=== PATIENT | female | born 1935 | race Caucasian/White ===

== ENCOUNTER 2016-07-04 20:35 | Inpatient (IN) ==
[2016-07-04] MEDS: HYDROmorphone 2 MG/ML SYRINGE IV PRN ×2 (21:20→23:07)
[2016-07-04] MEDS ORDERED: PHYTONADIONE 5 MG TABLET PO ONE (21:49)
[2016-07-04 22:51] LABS: Basophils # (Auto) 0 K/mcL (0.0-0.3); Basophils % (Auto) 0.1 % (0.0-2.0); Eosinophils # (Auto) 0.3 K/mcL (0.0-0.7); Eosinophils % (Auto) 2.1 % (0.0-7.0); Granulocytes % (Auto) 86.9 % (38.0-78.0); Lymphocytes # (Auto) 0.7 K/mcL (1.5-4.8); Lymphocytes % (Auto) 4.8 % (15.5-49.0); Mean Cell Volume 89.6 fL (80.0-100.0); Mean Corpuscular Hemoglobin 28.7 pg (26.0-34.0); Monocytes # (Auto) 0.9 K/mcL (0.1-0.9); Monocytes % (Auto) 6.1 % (1.0-12.0); Platelet Count 161 K/mcL (140-440); RBC 3.29 M/mcL (4.00-5.20); Red Cell Distribution Width 19.3 % (11.5-14.5)
--- NOTE | 2016-07-04 23:13 | Emergency Department Note ---
Fall HPI - General Chief Complaint: Fall Stated Complaint: Fall/left hip pain Time Seen by Provider: 07/04/16 20:39 Source: patient Mode of arrival: wheelchair Limitations: no limitations - History of Present Illness HPI Narrative: 81-year-old female fell from standing today when she lost her balance turning away from the computer. She had her head on a metal chair while on the way down causing a laceration above her left ear. No loss of consciousness. She is on Coumadin. Additionally she landed on her left hip which is very painful now. He is not wanting to move it at all. Denies nausea vomiting diarrhea. She is supposed to get dialysis tomorrow with Dr. Duke - Related Data Home Medications Medication Instructions Recorded Confirmed ascorbic acid (vitamin C) ER 500 500 mg PO QDAY tab 09/26/14 06/11/16 mg tablet,extended release cetirizine 10 mg capsule 10 mg PO ONCE PRN cap 09/26/14 06/11/16 fluticasone 50 mcg/actuation nasal 1 spray INTRANASAL QDP PRN g 09/26/14 spray,suspension vitamin-iron fumarate 28 1 tab PO QDAY tab 09/26/14 06/11/16 mg-folic acid 800 mcg tablet aspirin 81 mg tablet,delayed 81 mg PO QDAY 11/19/15 06/11/16 release cyanocobalamin (vit B-12) 1,000 1,000 mcg PO QDAY 11/19/15 06/11/16 mcg tablet omega-3 fatty acids 1,000 mg 2,000 mg PO QDAY 11/19/15 06/11/16 capsule Ferrous Sulfate 325 mg PO QDAY 03/16/16 06/11/16 calcium acetate 667 mg capsule 667 mg PO TID 03/16/16 06/11/16 sevelamer carbonate 800 mg tablet 800 mg PO TID 03/16/16 06/11/16 Lancets [Incontrol Ultra Thin See Protocol .ROUTE .MEDSUPPLY 06/11/16 06/11/16 Lancets] Previous Rx's Medication Instructions Recorded prednisone 20 mg tablet 20 mg PO BID PRN 90 Days 10/22/14 acetaminophen 325 mg tablet 650 mg PO BID PRN #1 tab 06/24/15 Voltaren 1 % topical gel 2 g TOPICAL QDAY #200 g NS 07/07/15 levothyroxine 88 mcg tablet 88 mcg PO QDAY 90 Days 07/07/15 atorvastatin 40 mg tablet 40 mg PO QDAY 90 Days 08/05/15 alcohol swabs See Dose Instructions .ROUTE 09/16/15 .MEDSUPPLY #200 pad febuxostat 80 mg tablet 80 mg PO QDAY #90 tab 05/26/16 hydrocodone 5 mg-acetaminophen 325 1 tab PO Q6H PRN 30 Days 05/26/16 mg tablet ipratropium bromide 0.03 % nasal 2 spray INTRANASAL BID-TID PRN #30 05/26/16 spray ml blood-glucose meter kit See Dose Instructions .ROUTE 06/03/16 .MEDSUPPLY #1 each traMADol [Ultram] 50 mg PO Q6HP PRN #20 tablet 06/11/16 warfarin 2 mg tablet 2 mg PO .COMPLEX #60 tab 06/29/16 warfarin 3 mg tablet 3 mg PO .COMPLEX #60 tab 06/29/16 Allergies Allergy/AdvReac Type Severity Reaction Status Date / Time pregabalin [From Lyrica] Allergy Severe crazy Verified 05/26/16 08:44 allopurinol Allergy Mild Unknown Verified 05/26/16 08:44 diltiazem AdvReac Intermediate Hypertensio Verified 05/26/16 08:44 n muscle relaxers Allergy Severe crazy Uncoded 05/26/16 08:44 Review of Systems All systems ED: reviewed and negative except as stated. Fall PMH - Past Medical History Attestation: Yes: The following information was validated with the patient. Medical history: Reports: atrial fibrillation, CHF, diabetes, GERD, hyperlipidemia, hypertension, osteoporosis, peripheral artery disease, renal disease, thyroid disease, valvular heart disease, other Surgical history ED: Reports: appendectomy, cataract, other (fistula) - Social History smoking status: Former smoker Physical Exam No acute distress. Normocephalic. 2 cm scalp laceration above the left ear superficial with reasonable approximation-bleeding is minimal at this time. Conjunctiva clear sclerae anicteric. No nasal discharge or congestion. Oropharynx is pink and moist. Neck is supple without lymphadenopathy or thyromegaly. Heart is regular rate and rhythm. Lungs are clear to auscultation bilaterally without wheezes rales rhonchi or respiratory distress. Abdomen soft nontender nondistended. Left leg tender around the greater trochanter. Any movement of that left hip joint exacerbates that tenderness immensely. Chronic bilateral pedal edema +1-2. Alert and oriented able to answer questions properly. - General Limitations: no limitations Course Vital Signs Temperature 97.0 F L 07/04/16 20:36 Pulse Rate 77 07/04/16 20:36 Respiratory Rate 20 07/04/16 20:36 Blood Pressure 111/38 07/04/16 20:36 Temperature 97.0 F L 07/04/16 20:36 Pulse Rate 89 07/04/16 23:41 Respiratory Rate 20 07/04/16 23:41 Blood Pressure 111/29 07/04/16 23:41 Pulse Oximetry (%) 96 07/04/16 23:41 Fall - Lab Data Lab results reviewed: Yes I reviewed the patient's lab results. Result diagrams: 07/04/16 21:48 07/04/16 21:47 Lab Results 07/04/16 07/04/16 07/04/16 Range/Units 21:47 21:48 22:01 WBC 14.4 H (4.5-11.0) K/mcL RBC 3.29 L (4.00-5.20) M/mcL Hgb 9.4 L (12.0-15.0) g/dL Hct 29.5 L (36.0-48.0) % MCV 89.6 (80.0-100.0) fL MCH 28.7 (26.0-34.0) pg MCHC 32.0 (31.0-36.0) g/dL RDW 19.3 H (11.5-14.5) % Plt Count 161 (140-440) K/mcL MPV 9.2 (7.4-10.4) fL Gran % 86.9 H (38.0-78.0) % Lymph % (Auto) 4.8 L (15.5-49.0) % [place] % (Auto) 6.1 (1.0-12.0) % Eos % (Auto) 2.1 (0.0-7.0) % Baso % (Auto) 0.1 (0.0-2.0) % Gran # 12.5 H (1.8-8.0) K/mcL Lymph # 0.7 L (1.5-4.8) K/mcL [place] # 0.9 (0.1-0.9) K/mcL Eos # 0.3 (0.0-0.7) K/mcL Baso # 0 (0.0-0.3) K/mcL Differential Comment (()) POC PT 50.0 H (11.9-14.5) sec POC INR 4.5 H (0.9-1.2) Sodium Not Reportable Potassium Not Reportable Chloride Not Reportable Carbon Dioxide Not Reportable Anion Gap Not Reportable BUN Not Reportable Creatinine Not Reportable GFR Calculation Not Reportable Glucose TNP Calcium Not Reportable Total Bilirubin Not Reportable AST Not Reportable ALT Not Reportable Alkaline Phosphatase Not Reportable Total Protein Not Reportable Albumin Not Reportable Globulin Not Reportable Albumin/Globulin Ratio Not Reportable - Radiology Data Radiology results reviewed: Yes I reviewed the patient's radiology results. X-ray left hip shows a left femoral neck fracture. Impacted CT scan of the head shows a left scalp hematoma/contusion and left sphenoid sinusitis. No acute intracranial issue Disposition Clinical Impression: Chronic kidney disease, stage V, Supratherapeutic INR Closed left hip fracture Qualifiers: Encounter type: initial encounter Qualified Code(s): S72.002A - Fracture of unspecified part of neck of left femur, initial encounter for closed fracture Scalp laceration Qualifiers: Encounter type: initial encounter Qualified Code(s): S01.01XA - Laceration without foreign body of scalp, initial encounter Summary: After cleaning , Scalp laceration was repaired with Dermabond Discussed left hip fracture with Dr. Mcdonald, her orthopedist. He recommended that she be admitted to hospitalist secondary to medical issues and that he would fix her hip when she was medically stable. She is due for dialysis tomorrow with Dr. Duke. Her INR was 4.5. Dr. Mcdonald requested a reverse anticoagulation in preparation for surgery and to that and I gave her 5 mg of vitamin K orally. I discussed the patient with Dr. Lin the hospitalist; he will admit the patient and take over reversal and medical management. Dr. Mcdonald and Srikanth will be consult her diastolic blood pressure was somewhat low as well and so she was given fluid bolus for this Disposition: Xfer As Inpt ([facility]) Condition: Fair Referrals: Manuela,Peyton S., DO [Primary Care Provider] - Jourdan Marie MD [Physician] - Emerald Duke MD [Physician] - Isaías Mcdonald MD [Physician] -
[2016-07-04] MEDS ORDERED: 0.9 % SODIUM CHLORIDE 500 ML IV ONE (23:48)
[2016-07-05] MEDS ORDERED: ONDANSETRON 4 MG/2 ML VIAL IV PRN (00:20)
[2016-07-05] MEDS ORDERED: NOREPINEPHRINE BITARTRATE 16 MG in 0.9 % SODIUM CHLORIDE 234 ML IV SCH ×2 (00:20→13:00)
[2016-07-05] MEDS ORDERED: ACETAMINOPHEN 325 MG TABLET PO PRN (00:20)
[2016-07-05] MEDS ORDERED: PIPERACILLIN SODIUM/TAZOBACTAM 3.375 GM in DEXTROSE 5% IN WATER 50 ML IV SCH (00:20)
[2016-07-05] MEDS ORDERED: VANCOMYCIN PER PHARMACY IV ONE (00:20)
[2016-07-05] MEDS ORDERED: ACETAMINOPHEN 1,000 MG/100 ML BOTTLE IV PRN (00:20)
[2016-07-05] MEDS ORDERED: LEVOFLOXACIN 750 MG/150 ML BAG IV SCH (00:20)
[2016-07-05] MEDS: HYDROmorphone 2 MG/ML SYRINGE IV PRN ×3 (00:44→08:20)
--- NOTE | 2016-07-05 01:10 | History and Physical Report ---
DATE OF ADMISSION: 07/05/2016 DATE OF ADMISSION: 07/04/2016 REASON FOR ADMISSION: Fall with left hip pain. HISTORY OF CHIEF COMPLAINT: Julianna is an 81-year-old with known history of ESRD on hemodialysis, managed by Dr. Duke, along with a history of atrial fibrillation on chronic anticoagulation. She fell today, landing on her left hip, sustaining significant injury along with laceration to the head. Initial workup in the ER was significant for left hip fracture. The patient denies chest palpitation, lightheadedness, but does endorse to significant weakness evolving over the last few days. The patient recently was admitted at [facility], has been ever since recovering, but never fully regained her strength. She also denies fever, headache, photophobia, chest pain or shortness of breath. She endorses generalized swelling. She is on 3 times a week hemodialysis. Denies diarrhea, dysuria, abdominal pain, weight changes. REVIEW OF SYSTEMS: Ten-point review of system was performed and negative except the ones discussed above. PAST MEDICAL HISTORY: 1. ESRD on hemodialysis, managed by nephrology. 2. Hypothyroidism. 3. Chronic anemia. 4. Atrial fibrillation, on Coumadin for CVA prophylaxis. 5. Recurrent pneumonia. 6. Diabetes mellitus type 2. 7. Gout. 8. Bilateral lower extremity lymphedema. 9. Hypertension. 10. Hyperlipidemia. 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 12. Aortic stenosis, status post aortic valve replacement recently at [facility]. 13. Chronic pleural effusion. CURRENT MEDICATIONS: 1. Fluticasone intranasally. 2. Cetirizine 10. 3. Ascorbic acid as needed. 4. Aspirin 81. 5. Ferrous sulfate 325. 6. Sevelamer 800 t.i.d. 7. Calcium acetate 667 t.i.d. 8. Prednisone 20. 9. Levothyroxine 88. 10. Atorvastatin 40. 11. Febuxostat 80. 12. Hydrocodone/acetaminophen 1 tab q.6. 13. Tramadol 50. 14. Warfarin 2 alternating with 3 mg. ALLERGIES KNOWN TO: 1. ALLOPURINOL. 2. DILTIAZEM. 3. PREGABALIN. 4. MUSCLE RELAXERS. SOCIAL HISTORY: The patient lives in [place] along with her daughter, who is accompanying her. She is remote past smoker but quit, 62. She is . Her POA is Shawn, daughter. FAMILY HISTORY: Non-relevant, being advanced age and ESRD and presenting symptoms. PHYSICAL EXAMINATION: GENERAL: The patient is moderately distressed, lethargic, fatigued, but responding to verbal commands. BMI 28.7. Height 5 feet 3 inches. VITAL SIGNS: Blood pressure 111/30, respiratory rate 20, temperature 97, pulse 77 and sats at 98 percent on room air. HEENT: Pupils symmetric. Oral cavity is dry. No ear or nose discharge. Head is normocephalic and atraumatic. NECK: No lymphadenopathy. CHEST: S1, S2, irregular rhythm. ESM grade 1. Diminished breath sounds at bases. ABDOMEN: Soft and nontender. UPPER EXTREMITIES: Left upper extremity fistula along with significant laceration. LOWER EXTREMITIES: Left lower extremity externally rotated and shortened as compared to right lower extremity along with bilateral lymphedema. SKIN: Multiple bruises, ecchymosis generalized, and also laceration left temporal area and left upper extremity. PSYCHIATRIC: Fatigued, lethargic, but cooperative. No agitation, anxiety. NEURO: Moving all 4 extremities. Normal higher function on limited neuro exam. LABS AND IMAGING: White count 14.4, hemoglobin 9.4, platelets 161, bands over 10 percent. INR 4.5. BMP pending. ASSESSMENT AND PLAN: An 81-year-old admitted with sepsis, left hip fracture. 1. Sepsis of unclear etiology. Ramirez cultures, broad antibiotic coverage, start vasopressors if MAP less than 60. The patient is a high risk based on [place] score of immunocompromised state, end-stage renal disease on dialysis. 2. Continue aggressive source evaluation including chest x-ray, ramirez cultures. 3. Left hip fracture. Orthopedics consulted. Continue pain management until surgery. 4. Supratherapeutic INR. Start vitamin K 5 mg and use FFP to keep INR less than 1.5 prior to surgery. 5. Preoperative risk evaluation based on RCRI [place] Heart Association risk stratification, the patient would fall under very high risk category for intraoperative and immediate postoperative period acute coronary event/cerebrovascular accident. Most of the risks are not modifiable and patient and family understand the high risk nature in light of hemodialysis for end-stage renal disease. 6. History of atrial fibrillation. 7. Hypothyroidism. Continue thyroxine. 8. Degenerative joint disease. Continue pain medication. 9. Hyperlipidemia. Continue statin. 10. History of gout. Continue febuxostat. 11. Recent aortic valve replacement, currently stable. PLAN FOR TODAY: 1. Admit as inpatient. 2. Nephrology and orthopedic consultation. 3. Reverse anticoagulation with vitamin K and FFP. 4. The patient remains high risk operative candidate. Surgery and anesthesia specific risks will be addressed by individual care providers. 5. Antibiotic coverage. 6. Continue sepsis source evaluation. 7. Preexisting medical condition management as above. Overall, a very high-complexity admit, will be admitted in ICU and close monitoring for concern of sepsis. AA:brien Job ID: [id number] Doc ID: [id number] Jourdan Marie MD MTDSteve
[2016-07-05] MEDS ORDERED: LEVOFLOXACIN 750 MG/150 ML BAG IV ONE (01:20)
[2016-07-05] MEDS ORDERED: VANCOMYCIN 1,500 MG in 0.9 % SODIUM CHLORIDE 500 ML IV ONE (01:33)
[2016-07-05] MEDS ORDERED: VANCOMYCIN 500 MG VIAL ONE (01:45)
[2016-07-05] MEDS ORDERED: VANCOMYCIN 1 GM VIAL ONE (01:46)
[2016-07-05] MEDS ORDERED: PIPERACILLIN SODIUM/TAZOBACTAM 3.375 GM VIAL IV ONE (03:47)
[2016-07-05] MEDS ORDERED: HYDROmorphone 2 MG/ML SYRINGE ONE (04:37)
[2016-07-05] MEDS ORDERED: 0.9 % SODIUM CHLORIDE 10 ML SYRINGE IV SCH (06:00)
--- NOTE | 2016-07-05 07:40 | XRay Report ---
CLINICAL INFORMATION: Trauma COMPARISON: None. FINDINGS: There is an acute, mildly impacted subcapital fracture of the left hip. Minimal displacement noted. Mild degenerative change seen in both hips and SI joints. Soft tissues are normal. IMPRESSION: Minimally impacted displaced acute subcapital fracture - left hip Interpreted and Authenticated by: Isaías Baker 07/05/16
--- NOTE | 2016-07-05 07:50 | Cat Scan Report ---
CLINICAL INFORMATION: Trauma now with confusion COMPARISON: None. TECHNIQUE: 2.5 mm helical slices were obtained in the skull base to vertex. Following reconstruction, axial reformatted images were reviewed at bone and parenchymal windows. FINDINGS: The ventricles, sulci, fissures, and cisterns are symmetrically enlarged compatible with mild age-related atrophy - no extra-axial fluid collection or mass appreciated. Patchy chronic ischemic changes seen in the deep cerebral white matter. There is a linear 20 x 5 mm remote lacunar infarct in the left external capsule and a 15 x 5 mm remote lacunar infarct in the right external capsule. There are scattered remote lacunar infarcts in the deep cerebral white matter. There are also scattered remote lacunar infarcts in the basal ganglia. There is no acute intracerebral hemorrhage, mass effect or edema. There is subtotal opacification of the left sphenoid and right posterior ethmoid air cell compatible sinusitis. IMPRESSION: Mild atrophy and chronic ischemic changes in the cerebral white matter and remote lacunar infarcts in the basal ganglia and deep cerebral white matter. There is no intracerebral hemorrhage or other acute posttraumatic change. Severe left sphenoid and posterior right ethmoid sinusitis Interpreted and Authenticated by: Isaías Baker 07/05/16
--- NOTE | 2016-07-05 07:59 | XRay Report ---
CLINICAL INFORMATION: Shortness of breath COMPARISON: 06/14/2016. FINDINGS: The heart has increased in size - now markedly enlarged. Mediastinum is unremarkable. The pulmonary vessels are now moderately distended and there is mild interstitial edema throughout both lungs. Small right pleural effusion is appreciated. There is minor bibasilar atelectasis. IMPRESSION: Moderate acute CHF with small right pleural effusion Interpreted and Authenticated by: Isaías Baker 07/05/16
[2016-07-05] MEDS ORDERED: NOREPINEPHRINE BITARTRATE 16 MG in 0.9 % SODIUM CHLORIDE 234 ML IV PRN (08:36)
[2016-07-05 08:48] LABS: Mean Cell Volume 90.9 fL (80.0-100.0); Mean Corpuscular HGB Conc 32.4 g/dL (31.0-36.0); Mean Corpuscular Hemoglobin 29.5 pg (26.0-34.0); Platelet Count 156 K/mcL (140-440); RBC 2.84 M/mcL (4.00-5.20); Red Cell Distribution Width 19.8 % (11.5-14.5)
[2016-07-05] MEDS ORDERED: DOCUSATE SODIUM 100 MG CAPSULE PO SCH (09:00)
[2016-07-05 09:20] LABS: ALT/SGPT 22 U/l (0-40); Albumin 2.9 gm/dL (3.2-5.2); Alkaline Phosphatase 93 U/L (39-117); Bilirubin,Direct < 0.2 mg/dL (0.0-0.3); Blood Urea Nitrogen 46 mg/dl (8-23); Gamma Glutamyl Transpeptidase 31 U/L (5-36); Magnesium 2.3 mg/dL (1.6-2.5); Phosphorous 4.3 mg/dL (2.7-4.5); Uric Acid 2.5 mg/dL (2.5-8.0)
[2016-07-05] MEDS ORDERED: 0.9 % SODIUM CHLORIDE 10 ML SYRINGE IV PRN (09:33)
[2016-07-05] MEDS ORDERED: VANCOMYCIN PER PHARMACY IV SCH (10:15)
[2016-07-05 10:47] LABS: Anisocytosis 1+ (NONE SEEN); Eosinophils % (Manual) 1 % (0-7); Lymphocytes % 2 % (15-49); Monocytes % (Manual) 1 % (1-9); Platelet Estimate NORMAL (NORMAL); RBC Morphology ABNORM (NORMAL); Segmented Neutrophils % 96 % (38-78)
[2016-07-05] MEDS ORDERED: PHYTONADIONE 10 MG/ML AMPUL SQ ONE (11:01)
--- NOTE | 2016-07-05 11:10 | Internal Med Progress Note ---
Medical - PN: Subj Patient information: Note initiated : 07/05/16 at 11:01 am Service Date, if different from initiated Date: [] Patient: Julianna Cameron 81 y/o F admitted on 07/05/16 for Fall/left hip pain. Chief Complaint: [] Interval history: 07[id number]-old female with ESRD admitted with sepsis/fall/left hip fracture. ESRD on hemodialysis. Left-sided head laceration status post Dermabond application ER. nephrology consulted. Staff unable to obtain adequate blood for lab analysis. Admitted as inpatient. Nephrology and orthopedics on board. Status post 5 mg vitamin K at ER. white count 14.6 with bandemia. x-ray chest moderate CHF 07/05- INR at 5. Additional 5 mg vitamin K subcutaneous today. Surgery on hold. On antibiotic coverage. Nephrology on board for hemodialysis. Adequate pain relief. Patient comfortable. Family at bedside. No overnight fever chills nausea vomiting. Order in light of inadequate IV access. Narcotics And/Or Vice Detective recommended against accessing dialysis fistula for blood draws. Continue broad antibiotic coverage in light of leukocytosis/bandemia and unknown source for sepsis. - Constitutional Vitals: Vital Signs Temp Pulse Resp BP Pulse Ox 99.1 F 100 H 18 109/51 96 07/05/16 08:00 07/05/16 04:20 07/05/16 08:00 07/05/16 08:00 07/05/16 08:00 Period Temp Pulse Resp BP Sys/Worrell Pulse Ox Last 24 Hr 97.5 F-99.1 F 95-100 14-18 90-109/38-54 93-96 Intake and Output 07/04/16 07/05/16 07/05/16 21:59 05:59 13:59 Intake Total 650 / 650 Balance 650 / 650 Weight 165 lb Intake & Output: Intake & Output 07/04/16 07/05/16 07/05/16 21:59 05:59 13:59 Intake Total 650 / 650 Balance 650 / 650 Weight 165 lb Intake: IV 650 / 650 Vancomycin 1,500 mg In 500 / 500 Sodium Chloride 0.9% 500 ml @ 333.3 mls/hr IV ONCE ONE Rx#:[id number] General appearance: moderate distress (ip fracture pain) Exam: mild anxiety minimally labored breathing nondistended abdomen bilateral lymphedema left arm fistula Left lateral forehead- Dermabond over laceration Medical - PN: Obj Da - Labs CBC & Chem 7: 07/05/16 07:20 07/05/16 07:20 Labs: Abnormal Lab Results 07/05/16 07/05/16 07/05/16 07:20 07:20 07:20 WBC 11.6 H RBC 2.84 L Hgb 8.4 L Hct 25.8 L RDW 19.8 H Seg Neutrophils % 96 H Lymphocytes % 2 L RBC Morphology Abnorm A Anisocytosis 1+ A PT 48.3 H INR 5.0 H Chloride 95 L Anion Gap 17.0 H BUN 46 H Creatinine 6.5 H* Glucose 133 H Calcium 7.4 L Lactate Dehydrogenase 370 H Total Protein 5.8 L Albumin 2.9 L Meds: Medications Acetaminophen (Tylenol) 650 mg PO Q4-6HP PRN PRN Reason: PAIN/FEVER > 101 Docusate Sodium (Colace) 100 mg PO BID [facility] Last Admin: 07/05/16 08:21 Dose: Not Given Heparin Sodium (Porcine) (Heparin Flush) 2 ml IV Q12 [facility] Hydromorphone HCl (Dilaudid) 0 mg IV Q4HP PRN PRN Reason: Pain Last Admin: 07/05/16 08:20 Dose: 0.5 mg Acetaminophen (Ofirmev) 1,000 mg in 100 mls @ 200 mls/hr IV Q6HP PRN PRN Reason: PAIN/FEVER > 101 Norepinephrine Bitartrate 16 (mg/ Sodium Chloride) 250 mls @ 9.37 mls/hr IV Q24HP PRN; Protocol; 10 MCG/MIN PRN Reason: Hypotension Piperacillin Sod/Tazobactam (Sod 2.25 gm/ Dextrose) 50 mls @ 100 mls/hr IV Q12H FANNY Levofloxacin (Levaquin) 500 mg in 100 mls @ 100 mls/hr IV Q48H FANNY Ondansetron HCl (Zofran) 4 mg IV Q4-6HP PRN PRN Reason: Nausea And Vomiting Senna/Docusate Sodium (Senna Plus Tablet) 1 tab PO HS FANNY Sodium Chloride (Saline Flush) 10 ml IV Q8 [facility] Last Admin: 07/05/16 05:23 Dose: Not Given Sodium Chloride (Saline Flush) 10 ml IV UD PRN PRN Reason: FLUSH Vancomycin HCl (Vancomycin Per Pharmacy) 1 order IV UD [facility] Medical - PN: A/P - Time Spent With Patient Total time spent is greater than 50% in coordination of care (as documented) at patient's floor/unit and/or counseling patient: 25 - 35 minutes (1) Sepsis Status: Acute Assessment and plan: * Left hip fracture-managed by orthopedics. surgery on hold in light of supratherapeutic INR ISSUES MANAGED BY HOSPITALIST SERVICE * Preoperative risk evaluation-based on RCRI [place] Heart Association risk stratification patient would fall under very high risk category for immediate Intra-Op/postop sabrina acute coronary event/CVA. Family understands he risks including and agrees to proceed with surgery. surgery and anesthesia specific risks will be addressed by individual care providers * SSepsis-Unclear source. On antibiotic coverage. Await cultures * Pain management on as needed opioids * Supratherapeutic INR-Status post 5 mg vitamin K. Repeat INR 5. Additional 5 mg vitamin K today. use FFP preop * pleural effusion/volume overload/CHF-secondary to ESRD. * ESRD on HD-managed by nephrology * Atrial fibrillation-rate controlled * glaucoma on latanoprost * Hypothyroidism on thyroxine * Reactive airway disease on ipratropium * Hyperlipidemia statin * DVT prophylaxis-we'll resume Coumadin post surgery plan * Additional 5 mg vitamin K.repeat INR evening. Use FFP preop to target INR 1.5 * PICC line placement * empiric antibiotic coverage * hemodialysis per nephrology * Pain management * pre-existing medical condition management as above Current Visit: Yes Medical - PN: Qual - Stroke Symptom Onset Unknown: No - VTE Deep Vein Thrombosis/Pulmonary Embolism Present on Admission: No
[2016-07-05] MEDS ORDERED: HYDROmorphone 2 MG/ML SYRINGE IV PRN (11:26)
[2016-07-05] MEDS ORDERED: PIPERACILLIN SODIUM/TAZOBACTAM 2.25 GM in DEXTROSE 5% IN WATER 50 ML IV SCH (13:00)
--- NOTE | 2016-07-05 13:17 | XRay Report ---
CLINICAL INFORMATION: PICC PLACEMENT COMPARISON: 07/04/2016. FINDINGS: Right-sided PICC line tip overlies the tricuspid valve plane. The heart is moderately enlarged, but unchanged. Mediastinum is unremarkable. Pulmonary vessels remain mildly distended and there is mild residual edema throughout both lungs with small right pleural effusion. IMPRESSION: PICC line tip overlies the tricuspid valve plane. Nurses were instructed to withdraw the line 5 cm Mild/moderate CHF - slightly improved Interpreted and Authenticated by: Isaías Baker 07/05/16
[2016-07-05] MEDS ORDERED: 0.9 % SODIUM CHLORIDE 250 ML IV ONE (13:22)
--- NOTE | 2016-07-05 14:21 | Transfer Summary ---
Transfer Discharge Sum: Prov Patient information: Note initiated : 07/05/16 at 2:15 pm Service Date, if different from initiated Date: [] Patient: Julianna Cameron 81 y/o F admitted on 07/05/16 for Fall/left hip pain. Chief Complaint: [] Date of admission: 07/05/16 00:10 Discharge Date: 07/05/16 Primary care physician: [f_Reg Prim Care Provider] Receiving physician/facility: Addie Peguero [facility] watchstander Transfer Discharge Sum: Diag - Discharge Diagnosis (1) Sepsis Status: Acute Transfer Discharge Sum: Med - Medications Active and Home Medications: Home Medications ascorbic acid (vitamin C) ER 500 mg tablet,extended release 500 mg PO QDAY tab 09/26/14 [History Confirmed 07/05/16] cetirizine 10 mg capsule 10 mg PO ONCE PRN cap 09/26/14 [History Confirmed ] fluticasone 50 mcg/actuation nasal spray,suspension 1 spray INTRANASAL QDP PRN g 09/26/14 [History Confirmed 07/05/16] vitamin-iron fumarate 28 mg-folic acid 800 mcg tablet 1 tab PO QDAY tab 09/26/14 [History Confirmed 07/05/16] prednisone 20 mg tablet 20 mg PO BID PRN 90 Days 10/22/14 [Rx Confirmed 07/05/16 ] acetaminophen 325 mg tablet 650 mg PO BID PRN #1 tab 06/24/15 [Rx Confirmed ] Voltaren 1 % topical gel 2 g TOPICAL QDAY #200 g NS 07/07/15 [Rx Confirmed 06/11] levothyroxine 88 mcg tablet 88 mcg PO QDAY 90 Days 07/07/15 [Rx Confirmed ] atorvastatin 40 mg tablet 40 mg PO QDAY 90 Days 08/05/15 [Rx Confirmed 07/05/16] alcohol swabs See Dose Instructions .ROUTE .MEDSUPPLY #200 pad 09/16/15 [Rx Confirmed 05/26/16] aspirin 81 mg tablet,delayed release 81 mg PO QDAY 11/19/15 [History Confirmed 07/05/16] cyanocobalamin (vit B-12) 1,000 mcg tablet 1,000 mcg PO QDAY 11/19/15 [History Confirmed 07/05/16] omega-3 fatty acids 1,000 mg capsule 2,000 mg PO QDAY 11/19/15 [History Confirmed 07/05/16] Ferrous Sulfate 325 mg PO QDAY 03/16/16 [History Confirmed 07/05/16] calcium acetate 667 mg capsule 667 mg PO TID 03/16/16 [History Confirmed ] sevelamer carbonate 800 mg tablet 800 mg PO TID 03/16/16 [History Confirmed ] febuxostat 80 mg tablet 80 mg PO QDAY #90 tab 05/26/16 [Rx Confirmed 07/05/16] hydrocodone 5 mg-acetaminophen 325 mg tablet 1 tab PO Q6H PRN 30 Days 05/26/16 [ Rx Confirmed 07/05/16] ipratropium bromide 0.03 % nasal spray 2 spray INTRANASAL BID-TID PRN #30 ml [Rx Confirmed 07/05/16] blood-glucose meter kit See Dose Instructions .ROUTE .MEDSUPPLY #1 each [Rx Confirmed 06/03/16] Lancets [Incontrol Ultra Thin Lancets] See Protocol .ROUTE .MEDSUPPLY 06/11/16 [ History Confirmed 07/05/16] warfarin 2 mg tablet 2 mg PO .COMPLEX #60 tab 06/29/16 [Rx Confirmed 07/05/16] warfarin 3 mg tablet 3 mg PO .COMPLEX #60 tab 06/29/16 [Rx Confirmed 07/05/16] Latanoprost Ophth Drops [Xalatan Ophth Drops] 1 gtt OD HS 07/05/16 [History Confirmed 07/05/16] Midodrine [Midodrine HCl] 2 mg PO 07/05/16 [History] Uloric 80 mg PO DAILY 07/05/16 [History Confirmed 07/05/16] Active Medications Acetaminophen (Tylenol) 650 mg PO Q4-6HP PRN PRN Reason: PAIN/FEVER > 101 Aspirin (Aspirin) 81 mg PO DAILY [facility] Atorvastatin Calcium (Lipitor) 40 mg PO HS FANNY Docusate Sodium (Colace) 100 mg PO BID [facility] Last Admin: 07/05/16 08:21 Dose: Not Given Heparin Sodium (Porcine) (Heparin Flush) 2 ml IV Q12 FANNY Hydromorphone HCl (Dilaudid) 0 mg IV Q2HP PRN PRN Reason: Pain Acetaminophen (Ofirmev) 1,000 mg in 100 mls @ 200 mls/hr IV Q6HP PRN PRN Reason: PAIN/FEVER > 101 Piperacillin Sod/Tazobactam (Sod 2.25 gm/ Dextrose) 50 mls @ 100 mls/hr IV Q12H [facility] Last Admin: 07/05/16 13:42 Dose: 100 mls/hr Levofloxacin (Levaquin) 500 mg in 100 mls @ 100 mls/hr IV Q48H [facility] Norepinephrine Bitartrate 16 (mg/ Sodium Chloride) 250 mls @ 9.37 mls/hr IV Q24H [facility]; 10 MCG/MIN PRN Reason: Protocol Last Titration: 07/05/16 13:49 Dose: 25 mcg/min, 23.43 mls/hr Latanoprost (Xalatan Ophth Drops) 1 gtt OD HS [facility] Levothyroxine Sodium (Synthroid) 88 mcg PO QAMAC [facility] Ondansetron HCl (Zofran) 4 mg IV Q4-6HP PRN PRN Reason: Nausea And Vomiting Febuxostat [Uloric] (80 Mg Tab) 1 dose PO DAILY [facility] Senna/Docusate Sodium (Senna Plus Tablet) 1 tab PO HS [facility] Sodium Chloride (Saline Flush) 10 ml IV Q8 [facility] Last Admin: 07/05/16 05:23 Dose: Not Given Sodium Chloride (Saline Flush) 10 ml IV UD PRN PRN Reason: FLUSH Vancomycin HCl (Vancomycin Per Pharmacy) 1 order IV UD [facility] Transfer Discharge Sum: Hosp Hospital course: TRANSFER DIAGNOSIS * circulatory shock-unclear etiology. Fat emboli versus cardiogenic shock. On vasopressors Levophed at 15. Status post 2 50 cc crystalloid bolus. map around 55. Transferring to [facility] for further management * Left hip fracture- surgery on hold in light of supratherapeutic INR. ransferring to [facility] ISSUES MANAGED BY HOSPITALIST SERVICE * Sepsis-Unclear source. On antibiotic coverage. Await cultures * Fracture Pain management on as needed opioids * Supratherapeutic INR-Status post 5 mg vitamin K. Repeat INR 5. Additional 5 mg vitamin K administered this morning * Pleural effusion/volume overload/CHF-secondary to ESRD. * ESRD- hemodialysis held in light of hypotension * Atrial fibrillation/flutter-rate controlled. * glaucoma on latanoprost * Hypothyroidism on thyroxine * Reactive airway disease on ipratropium * Hyperlipidemia statin * limited code intubation okay. BRIEF HOSPITAL COURSE Ms. Cameron is a 81 year old female history of ESRD on HD admitted with left hip fracture. [id number]-old female with ESRD admitted with sepsis/fall/left hip fracture. ESRD on hemodialysis. Left-sided head laceration status post Dermabond application ER. nephrology consulted. Staff unable to obtain adequate blood for lab analysis. Admitted as inpatient. Nephrology and orthopedics on board. Status post 5 mg vitamin K at ER. white count 14.6 with bandemia. x-ray chest moderate CHF 07/05- INR at 5. Additional 5 mg vitamin K subcutaneous today. Surgery on hold. On antibiotic coverage. Nephrology on board for hemodialysis. Adequate pain relief. Patient comfortable. Family at bedside. No overnight fever chills nausea vomiting. Order in light of inadequate IV access. Dental Laboratory Technician recommended against accessing dialysis fistula for blood draws. Continue broad antibiotic coverage in light of leukocytosis/bandemia and unknown source for sepsis. 07/05-12:20 PM- Patient dropped blood pressures to 70s during dialysis and subsequently dialysis on hold. Patient symptomatic and feeling lightheaded. case discussed with family members. A line placement will be difficult with INR at 5. Initiated Levophed. Underlying CHF will need volume removal however due to low blood pressures at this time HD is on hold. Case discussed with nephrology. Due to complex nature of medical illness and deteriorating status with elevated INR, decompensated heart failure, hypotension requiring pressors, difficulty performing hemodialysis, and underlying left hip fracture requiring operative intervention patient would require transfer to tertiary Center. I discussed this with family And they agree for tertiary Center transfer. patient is a limited code agreeable intubation if required. Transfer coordination initiated with [facility]. await watchstander call back highly appreciate Dr. Addie Peguero's help for accepting transfer and coordinating further care in this highly complex 81-year-old patient. Critical care time spent 75 minutes including discussion with physician and multiple care providers, wishes aggressive management, care coordination, stabilizing patient and time spent on transfer coordination - Time Spent with Patient Total time spent providing and/or coordinating transfer services: Greater than 30 minutes Transfer Discharge Sum: Exam - Constitutional Vitals: Vital Signs Temp Pulse Resp BP BP Pulse Ox 07/05/16 12:00 98.6 F 20 83/44 98 07/05/16 08:00 99.1 F 18 109/51 96 07/05/16 04:20 98.9 F 100 H 14 90/38 94 07/05/16 00:20 97.5 F L 95 H 14 100/54 93 Intake and Output 07/05/16 07/05/16 07/05/16 05:59 13:59 21:59 Intake Total 650 / 650 266 / 266 Balance 650 / 650 266 / 266 Intake: IV 650 / 650 266 / 266 Sodium Chloride 0.9% 250 250 / 250 ml @ Wide Open IV BOLUS ONE Rx#:[id number] Levophed 16 mg In Sodium 16 / 16 Chloride 0.9% 234 ml @ 10 MCG/MIN 9.37 mls/hr IV Q24H FANNY Rx#:[id number] Vancomycin 1,500 mg In 500 / 500 Sodium Chloride 0.9% 500 ml @ 333.3 mls/hr IV ONCE ONE Rx#:[id number] Other: Weight 165 lb Transfer Discharge Sum: Data Procedures and tests throughout hospitalization: Pending Orders 07/05/16 03:42 Code Status [Resuscitation Status] Routine 07/05/16 09:33 Consent for Procedure NOW Heat Therapy Device Management DAILY PICC Line NOW Wound Care/Dressings PRN Wound Care/Dressings Q7D 0.9 % Sodium Chloride [Saline Flush] 10 ml IV UD PRN 07/05/16 09:52 Hemodialysis Treatment .ROUTINE 07/05/16 10:15 Vancomycin Per Pharmacy 1 order IV UD 07/05/16 11:26 HYDROmorphone [Dilaudid] See Dose Instructions IV Q2HP PRN 07/05/16 13:00 Norepinephrine Bitartrate [Levophed] 16 mg 0.9 % Sodium Chloride [Sodium Chloride 0.9%] 234 ml IV Q24H Piperacillin Sodium/Tazobactam [Zosyn] 2.25 gm Dextrose 5% in Water 50 ml IV Q12H 07/05/16 13:19 MRSA Screen PCR Stat 07/05/16 21:00 Atorvastatin [Lipitor] 40 mg PO HS Heparin Flush 2 ml IV Q12 Latanoprost Ophth Drops [Xalatan Ophth Drops] 1 gtt OD HS 07/06/16 05:00 Vancomycin Random Urgent 07/06/16 07:30 Levothyroxine [Synthroid] 88 mcg PO QAMAC 07/06/16 09:00 Aspirin 81 mg PO DAILY Patients Own Medication 1 dose PO DAILY 07/06/16 09:33 Wound Care/Dressings ONCE 07/06/16 10:00 Levofloxacin [Levaquin] 500 mg in 100 ml IV Q48H Transfer Discharge Sum: A/P - Problem Maintenance (1) Sepsis Status: Acute - Plan Functional capacity at transfer: bed bound Overall status at transfer: patient is back to baseline Disposition: Xfer [facility] Quality Measure Queries - VTE Deep Vein Thrombosis/Pulmonary Embolism Present on Admission: No
--- NOTE | 2016-07-05 14:58 | Nephrology Consult Note ---
History of Present Illness - Reason for Consult Patient information: Note initiated : 07/05/16 at 2:54 pm Service Date, if different from initiated Date: [] Patient: Julianna Cameron 81 y/o F admitted on 07/05/16 for Fall/left hip pain. Chief Complaint: [] Consult date: 07/05/16 end stage renal disease Requesting physician: Jourdan Marie - Chief Complaint hip fracture - History of Present Illness Ms Cameron is a 81 y/o female with h/o ESRD on dialysis under my care She presented to the ED yesterday after she had a fall at home last night, she does not remember how she fell, she was not dizzy and she did not have syncope She however landed on her left hip and has sustained left hip fracture and also has laceration on her scalp She was suppose to undergo internal fixation other fracture but her INR was elevated and so was her WBC count overnight they also had issues obtaining labs and optimal access She was about to get started on dialysis today but she was found to be hypotensive and transferred to [facility] because of multiple issues pt c/o pain No SOB, CP denies dizziness Review of Systems ROS unobtainable: due to endotracheal tube (as in HPI ) All systems PM: reviewed and no additional remarkable complaints except as stated Past History Past medical history: ESRD on HD HTN DM type 2 CHF Afib (paroxysmal) on coumadin s/p AVR anemia of CKD Renal osteodystrophy gout dyslipidemia Past surgical history: s/p AVF S/P AVR last year Past family history: son on dialysis Past social history: lives in [place] with her son, has good family support no active addictions Medications and Allergies Home Medications Medication Instructions Recorded Confirmed Type ascorbic acid (vitamin C) ER 500 500 mg PO QDAY tab 09/26/14 07/05/16 History mg tablet,extended release cetirizine 10 mg capsule 10 mg PO ONCE PRN cap 09/26/14 07/05/16 History fluticasone 50 mcg/actuation nasal 1 spray INTRANASAL QDP PRN g 09/26/14 History spray,suspension vitamin-iron fumarate 28 1 tab PO QDAY tab 09/26/14 07/05/16 History mg-folic acid 800 mcg tablet prednisone 20 mg tablet 20 mg PO BID PRN 90 Days 10/22/14 07/05/16 Rx acetaminophen 325 mg tablet 650 mg PO BID PRN #1 tab 06/24/15 07/05/16 Rx Voltaren 1 % topical gel 2 g TOPICAL QDAY #200 g NS 07/07/15 06/11/16 Rx levothyroxine 88 mcg tablet 88 mcg PO QDAY 90 Days 07/07/15 07/05/16 Rx atorvastatin 40 mg tablet 40 mg PO QDAY 90 Days 08/05/15 07/05/16 Rx alcohol swabs See Dose Instructions .ROUTE 09/16/15 05/26/16 Rx .MEDSUPPLY #200 pad aspirin 81 mg tablet,delayed 81 mg PO QDAY 11/19/15 07/05/16 History release cyanocobalamin (vit B-12) 1,000 1,000 mcg PO QDAY 11/19/15 07/05/16 History mcg tablet omega-3 fatty acids 1,000 mg 2,000 mg PO QDAY 11/19/15 07/05/16 History capsule Ferrous Sulfate 325 mg PO QDAY 03/16/16 07/05/16 History calcium acetate 667 mg capsule 667 mg PO TID 03/16/16 07/05/16 History sevelamer carbonate 800 mg tablet 800 mg PO TID 03/16/16 07/05/16 History febuxostat 80 mg tablet 80 mg PO QDAY #90 tab 05/26/16 07/05/16 Rx hydrocodone 5 mg-acetaminophen 325 1 tab PO Q6H PRN 30 Days 05/26/16 07/05/16 Rx mg tablet ipratropium bromide 0.03 % nasal 2 spray INTRANASAL BID-TID PRN #30 05/26/16 Rx spray ml blood-glucose meter kit See Dose Instructions .ROUTE 06/03/16 06/03/16 Rx .MEDSUPPLY #1 each Lancets [Incontrol Ultra Thin See Protocol .ROUTE .MEDSUPPLY 06/11/16 07/05/16 History Lancets] warfarin 2 mg tablet 2 mg PO .COMPLEX #60 tab 06/29/16 07/05/16 Rx warfarin 3 mg tablet 3 mg PO .COMPLEX #60 tab 06/29/16 07/05/16 Rx Latanoprost Ophth Drops [Xalatan 1 gtt OD HS 07/05/16 07/05/16 History Ophth Drops] Midodrine [Midodrine HCl] 2 mg PO 07/05/16 History Uloric 80 mg PO DAILY 07/05/16 07/05/16 History Allergies Allergy/AdvReac Type Severity Reaction Status Date / Time pregabalin [From Lyrica] Allergy Severe crazy Verified 05/26/16 08:44 allopurinol Allergy Mild Unknown Verified 05/26/16 08:44 diltiazem AdvReac Intermediate Hypertensio Verified 05/26/16 08:44 n muscle relaxers Allergy Severe crazy Uncoded 05/26/16 08:44 Exam - Vital Signs Vital signs: Temp Pulse Resp BP Pulse Ox 98.6 F 100 H 20 83/44 98 07/05/16 12:00 07/05/16 04:20 07/05/16 12:00 07/05/16 12:00 07/05/16 12:00 - General Appearance General appearance: appears started age, frail EENT: mucous membranes moist Neck: no JVD Respiratory: clear Cardiology: no rub, edema, normal S1, normal S2 Gastrointestinal: no tenderness, no guarding Integumentary: no rash, warm and dry Neurologic: no focal deficit, alert and oriented x3 Musculoskeletal: no erythema Psychiatric: mood/affect appropriate Results - Lab Results 07/05/16 07:20 07/05/16 07:20 Most recent lab results Calcium 7.4 mg/dl (8.6-10.4) L 07/05/16 07:20 Phosphorus 4.3 mg/dL (2.7-4.5) 07/05/16 07:20 Magnesium 2.3 mg/dL (1.6-2.5) 07/05/16 07:20 Assessment and Plan (1) ESRD (end stage renal disease) on dialysis Patient does need HD today for fluid excess however she got hypotensive even before we could initiate dialysis given multiple medical issues hospitalist service decided to transfer patient to Tertiary level care, family agreed Status: Acute
[2016-07-05] MEDS ORDERED: VASOPRESSIN 20 UNIT in DEXTROSE 5% IN WATER 99 ML IV SCH (15:00)
[2016-07-05] MEDS ORDERED: 0.9 % SODIUM CHLORIDE 250 ML IV SCH (15:00)
[2016-07-05] MEDS ORDERED: LATANOPROST OPHTH DROPS 2.5ML BOTTLE OD SCH (21:00)
[2016-07-05] MEDS ORDERED: ATORVASTATIN 20 MG TABLET PO SCH (21:00)
[2016-07-05] MEDS ORDERED: SENNOSIDES/DOCUSATE SODIUM 1 TAB TABLET PO SCH (21:00)
[2016-07-06] MEDS ORDERED: LEVOTHYROXINE 88 MCG TABLET PO SCH (07:30)
[2016-07-06] MEDS ORDERED: Febuxostat [Uloric] 80 mg Tab PO SCH (09:00)
[2016-07-06] MEDS ORDERED: ASPIRIN 81 MG TAB.CHEW PO SCH (09:00)
[2016-07-06] MEDS ORDERED: ULORIC 80 MG PO SCH (09:00)
[2016-07-06] MEDS ORDERED: LEVOFLOXACIN 500 MG/100 ML BAG IV SCH (10:00)
== END 2016-07-05 15:45 | disposition short-term general hospital (02) | DRG 871 ==
LOC: ED 20:35 → ICU 07-05 00:10
PROVIDERS: ADMIT Internal Medicine; ATTEND Internal Medicine

== ENCOUNTER 2017-04-18 09:49 | Inpatient (IN) ==
--- NOTE | 2017-04-18 10:09 | Emergency Department Note ---
SOB HPI - General Chief Complaint: Shortness of Breath/Dyspnea Stated Complaint: shortness of breath, cough congestion x 3 days Time Seen by Provider: 04/18/17 09:56 Source: patient, family Mode of arrival: wheelchair Limitations: physical limitation - History of Present Illness 82-year-old female presents with body aches, shortness of breath, and significant weakness over the last 48 hours. Worse today. Could not walk in the dialysis and they were concerned about her. Noticed she was also visibly short of breath so they sent her over to ER for evaluation. Leave she has had a fever although she has not taken her temperature at home. Positive nausea, vomiting, and diarrhea. The nausea vomiting started yesterday but the diarrhea started today. States she feels like she has pneumonia and has had several times in the past. Feels short of breath at rest but worse at exertion. No sore throat or ear pain. Family reports she has been a little bit weak for more like 4-5 days but definitely much worse over the last 48 hours. No dysuria or frequency. No abdominal pain. She was supposed to be dialyzed this morning but did not go to dialysis because they sent her here to the ER instead. - Related Data Home Medications Medication Instructions Recorded Confirmed ascorbic acid (vitamin C) ER 500 500 mg PO QDAY tab 09/26/14 04/18/17 mg tablet,extended release cetirizine 10 mg capsule 10 mg PO ONCE PRN cap 09/26/14 04/18/17 fluticasone 50 mcg/actuation nasal 1 spray INTRANASAL QDP PRN g 09/26/14 spray,suspension vitamin-ferrous fumarate 1 tab PO QDAY tab 09/26/14 04/18/17 28 mg iron-folic acid 800 mcg tablet aspirin 81 mg tablet,delayed 81 mg PO QDAY 11/19/15 04/18/17 release cyanocobalamin (vit B-12) 1,000 1,000 mcg PO QDAY 11/19/15 04/18/17 mcg tablet omega-3 fatty acids 1,000 mg 2,000 mg PO QDAY 11/19/15 04/18/17 capsule Ferrous Sulfate 325 mg PO QDAY 03/16/16 04/18/17 calcium acetate 667 mg capsule 667 mg PO TID 03/16/16 04/18/17 sevelamer carbonate 800 mg tablet 800 mg PO TID 03/16/16 04/18/17 Latanoprost Ophth Drops [Xalatan 1 gtt OD HS 07/05/16 04/18/17 Ophth Drops] Previous Rx's Medication Instructions Recorded acetaminophen 325 mg tablet 650 mg PO BID PRN #1 tab 06/24/15 febuxostat 80 mg tablet 80 mg PO QDAY #90 tab 05/26/16 ipratropium bromide 0.03 % nasal 2 spray INTRANASAL BID-TID PRN #30 05/26/16 spray ml nystatin 100,000 unit/gram topical 1 applic TOPICAL BID #15 g 08/16/16 cream midodrine 5 mg tablet 5 mg PO TID 90 Days #270 tab 02/07/17 hydrocodone 7.5 mg-acetaminophen 1 tab PO Q8H PRN #150 tab 02/20/17 325 mg tablet nystatin 100,000 unit/gram topical 1 applic TOPICAL BID #45 each 02/20/17 powder levothyroxine 100 mcg tablet 100 mcg PO QDAY #30 tab 04/05/17 Allergies Allergy/AdvReac Type Severity Reaction Status Date / Time pregabalin [From Lyrica] Allergy Severe crazy Verified 03/08/17 13:19 allopurinol Allergy Mild Unknown Verified 03/08/17 13:19 diltiazem AdvReac Intermediate Hypertensio Verified 03/08/17 13:19 n muscle relaxers Allergy Severe crazy Uncoded 03/08/17 13:19 Review of Systems All systems ED: reviewed and negative except as stated. 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) Atrial fibrillation (Chronic) Diabetes mellitus (Chronic) Vitamin D deficiency (Chronic) Renal osteodystrophy (Chronic) Osteoporosis (Chronic) Obesity (Chronic) Low back pain (Chronic) Hypothyroidism (acquired) (Chronic) Hyperlipidemia (Chronic) Hypertension (Chronic) Gout (Chronic) Edema (Chronic) Anemia in CKD (chronic kidney disease) (Chronic) Basal cell carcinoma (BCC) (Acute) Abnormality of plasma protein (Resolved) Acidosis (Resolved) Anemia (Resolved) Bradycardia (Resolved) Chronic kidney disease, stage IV (severe) (Resolved) Chronic kidney disease, stage V (Resolved) Chronic kidney disease, stage V (Resolved) Closed left hip fracture (Resolved) Corticosteroid use (Resolved) DM (diabetes mellitus), type 2 with renal complications (Resolved) Decubitus Ulcer (Resolved) Diabetes mellitus, type II (Resolved) Dyspnea (Resolved) ESRD (end stage renal disease) on dialysis (Resolved) Epistaxis (Resolved) Heart failure with acute decompensation, type unknown (Resolved) Hospital discharge follow-up (Resolved) Hypertensive renal disease (Resolved) Hypokalemia (Resolved) Hypotension (Resolved) Influenza A (Resolved) Moderate aortic valve stenosis (Resolved) Moderate to severe aortic stenosis (Resolved) Peripheral vascular disease (Resolved) Pleural effusion (Resolved) Pleurisy (Resolved) Pneumonia (Resolved) Pneumonia (Resolved) Post herpetic neuralgia (Resolved) Scalp laceration (Resolved) Sepsis (Resolved) Supratherapeutic INR (Resolved) Upper respiratory infection (Resolved) Urinary incontinence, urge (Resolved) Urinary tract infection (Resolved) Venous insufficiency (Resolved) Viral pharyngitis (Resolved) Severe aortic stenosis (Ruled-out) Past Surgical History (Last Reviewed 02/20/17 @ 14:46 by Peyton Roy DO) S/P TAVR (transcatheter aortic valve replacement) (Acute) Cholecystectomy planned (Resolved) Eardrum rupture (Resolved) Femur fracture, right (Resolved) History of appendectomy (Resolved) History of cataract surgery (Resolved) History of knee surgery (Resolved) History of surgery (Resolved 07/11/16) Medical history: Reports: atrial fibrillation, CHF, DM, GERD, hyperlipidemia, hypertension, osteoporosis, peripheral artery disease, renal disease, thyroid disease, valvular heart disease, other Surgical history ED: Reports: appendectomy, cataract, other (fistula) - Social History smoking status: Former smoker Alcohol use: Reports: None Drug use: Reports: none Physical Exam Limitations: physical limitation General appearance: alert, malaise Head: atraumatic, normocephalic, normal inspection Eye: Present: normal appearance. Absent: conjunctival injection ENT: normal exam, normal oropharynx, mucous membranes moist, normal external ear exam, nasal congestion Neck: Present: normal inspection, trachea midline Chest: Present: normal inspection, symmetric chest wall rise Respiratory: Present: other (Lung sounds diminished at the bases bilaterally). Absent: respiratory distress, wheezes, accessory muscle use Cardiovascular: Present: regular rate, normal heart sounds Abdominal: Present: soft, hyperactive bowel sounds. Absent: distention, tenderness, guarding Extremities: Present: pedal edema (1+ pedal edema). Absent: tenderness, calf tenderness Neurological: Present: alert, oriented X3 (Oriented 3 but sleepy and generally weak.) Motor strength - LUE: 4/5 Motor strength - RUE: 4/5 Motor strength - LLE: 4/5 Motor strength - RLE: 4/5 Coma Scale Eye Opening: Spontaneous Coma Scale Motor Response: Obeys Commands Coma Scale Verbal Response: Oriented Coma Scale Total: 15 Psychiatric: Present: normal affect, normal mood Skin: Present: warm, dry, intact, normal color Course Course Narrative: @ 1145 Dr. Duke here to see pt. @ [address] Trinidad contacted and will come down to see patient for probable admit. I did discuss with radiology, Dr. Quijano, that we need to rule out a PE but BUN and creatinine are elevated. However she will be dialyzed within the next 24-48 hours so it would be ok for her to have a contrast study done. @1210 Dr. Duke asked us to consult with cardiology regarding elevated troponin. Cardiology at [facility] contacted and we are awaiting a call back Vital Signs Temperature 98.0 F 04/18/17 09:50 Pulse Rate 92 H 04/18/17 09:50 Respiratory Rate 16 04/18/17 09:50 Blood Pressure 155/73 04/18/17 09:50 Pulse Oximetry (%) 93 04/18/17 09:50 Temperature 98.0 F 04/18/17 09:50 Pulse Rate 81 04/18/17 12:01 Respiratory Rate 19 04/18/17 12:01 Blood Pressure 101/53 04/18/17 12:01 Pulse Oximetry (%) 96 04/18/17 12:01 Shortness of Breath/Dyspnea - Lab Data Result diagrams: 04/18/17 10:31 04/18/17 10:31 Lab Results 04/18/17 04/18/17 04/18/17 Range/Units 10:31 10:31 10:31 WBC 6.8 (4.5-11.0) K/mcL RBC 3.12 L (4.00-5.20) M/mcL Hgb 9.5 L (12.0-15.0) g/dL Hct 28.2 L (36.0-48.0) % MCV 90.5 (80.0-100.0) fL MCH 30.4 (26.0-34.0) pg MCHC 33.6 (31.0-36.0) g/dL RDW 17.0 H (11.5-14.5) % Plt Count 122 L (140-440) K/mcL MPV 8.6 (7.4-10.4) fL Gran % 88.0 H (38.0-78.0) % Lymph % (Auto) 5.2 L (15.5-49.0) % [place] % (Auto) 6.5 (1.0-12.0) % Eos % (Auto) 0.1 (0.0-7.0) % Baso % (Auto) 0.2 (0.0-2.0) % Gran # 6.0 (1.8-8.0) K/mcL Lymph # (Auto) 0.4 L (1.5-4.8) K/mcL [place] # (Auto) 0.4 (0.1-0.9) K/mcL Eos # (Auto) 0 (0.0-0.7) K/mcL Baso # (Auto) 0 (0.0-0.3) K/mcL D-Dimer 7.05 H (0.00-0.40) ug/ml VBG Lactic Acid (0.5-2.2) mmol/L Sodium 139 (133-145) mmol/L Potassium 5.5 H (3.3-5.1) mmol/L Chloride 95 L (96-108) mmol/L Carbon Dioxide 21 L (22-30) mmol/L Anion Gap 23.0 H (8-16) BUN 64 H (8-23) mg/dl Creatinine 7.8 H* (0.6-1.1) mg/dl GFR Calculation 4 Glucose 179 H (70-105) mg/dL Calcium 8.9 (8.6-10.4) mg/dl Total Bilirubin 0.4 (0.0-1.0) mg/dL AST 36 (0-37) U/l ALT 11 (0-40) U/l Alkaline Phosphatase 134 H (39-117) U/L Total Creatine Kinase 36 (24-170) IU/L CK-MB (CK-2) 1.8 (0-2.9) ng/ml Troponin T (0-0.03) ng/ml NT-Pro-B Natriuret Pep 68553.0 H (0-450) pg/ml Total Protein 6.5 (5.9-8.4) gm/dL Albumin 3.6 (3.2-5.2) gm/dL Globulin 2.9 (2.2-3.7) gm/dL Albumin/Globulin Ratio 1.2 (1.0-2.3) 04/18/17 04/18/17 Range/Units 10:31 10:31 WBC (4.5-11.0) K/mcL RBC (4.00-5.20) M/mcL Hgb (12.0-15.0) g/dL Hct (36.0-48.0) % MCV (80.0-100.0) fL MCH (26.0-34.0) pg MCHC (31.0-36.0) g/dL RDW (11.5-14.5) % Plt Count (140-440) K/mcL MPV (7.4-10.4) fL Gran % (38.0-78.0) % Lymph % (Auto) (15.5-49.0) % [place] % (Auto) (1.0-12.0) % Eos % (Auto) (0.0-7.0) % Baso % (Auto) (0.0-2.0) % Gran # (1.8-8.0) K/mcL Lymph # (Auto) (1.5-4.8) K/mcL [place] # (Auto) (0.1-0.9) K/mcL Eos # (Auto) (0.0-0.7) K/mcL Baso # (Auto) (0.0-0.3) K/mcL D-Dimer (0.00-0.40) ug/ml VBG Lactic Acid 2.3 H (0.5-2.2) mmol/L Sodium (133-145) mmol/L Potassium (3.3-5.1) mmol/L Chloride (96-108) mmol/L Carbon Dioxide (22-30) mmol/L Anion Gap (8-16) BUN (8-23) mg/dl Creatinine (0.6-1.1) mg/dl GFR Calculation Glucose (70-105) mg/dL Calcium (8.6-10.4) mg/dl Total Bilirubin (0.0-1.0) mg/dL AST (0-37) U/l ALT (0-40) U/l Alkaline Phosphatase (39-117) U/L Total Creatine Kinase (24-170) IU/L CK-MB (CK-2) (0-2.9) ng/ml Troponin T 0.26 H* (0-0.03) ng/ml NT-Pro-B Natriuret Pep (0-450) pg/ml Total Protein (5.9-8.4) gm/dL Albumin (3.2-5.2) gm/dL Globulin (2.2-3.7) gm/dL Albumin/Globulin Ratio (1.0-2.3) Disposition Pt seen by AMORTIZATION CLERK/PA only: No Clinical Impression: Lung infiltrate, Renal failure, SOB (shortness of breath) Disposition: Xfer As Inpt ([facility]) Condition: Fair Referrals: Peyton Roy DO [Primary Care Provider] - Emerald Duke MD [Physician] - Time of Disposition: 12:32
[2017-04-18] MEDS ORDERED: 0.9 % SODIUM CHLORIDE 1,000 ML IV SCH (10:15)
--- NOTE | 2017-04-18 11:03 | XRay Report ---
INDICATION: Renal failure and hemodialysis. Dyspnea, cough, congestion TECHNIQUE: AP chest x-ray,upright portable COMPARISON: Previous chest x-rays dated 08/18/2016, 07/19/2016, 05/13/2016 FINDINGS:Mild blunting of the right costophrenic angle and small infiltrate. This area has been abnormal on prior examinations and this may be residual density. Small focal area of pneumonia is not excluded. Lungs are otherwise negative. No other focal pulmonary parenchymal infiltrate or mass. Heart size is mildly enlarged, unchanged. No pulmonary edema or congestion. IMPRESSION: 1. Small focal density at the right costophrenic angle 2. Improved chest x-ray since 08/18/2016 Interpreted and Authenticated by: Isaías Quijano 04/18/17
[2017-04-18] MEDS ORDERED: AZITHROMYCIN 500 MG in DEXTROSE 5% IN WATER 250 ML IV ONE (11:07)
[2017-04-18 11:14] LABS: Basophils # (Auto) 0 K/mcL (0.0-0.3); Basophils % (Auto) 0.2 % (0.0-2.0); Eosinophils # (Auto) 0 K/mcL (0.0-0.7); Eosinophils % (Auto) 0.1 % (0.0-7.0); Lymphocytes # (Auto) 0.4 K/mcL (1.5-4.8); Lymphocytes % (Auto) 5.2 % (15.5-49.0); Mean Cell Volume 90.5 fL (80.0-100.0); Mean Corpuscular HGB Conc 33.6 g/dL (31.0-36.0); Mean Corpuscular Hemoglobin 30.4 pg (26.0-34.0); Monocytes # (Auto) 0.4 K/mcL (0.1-0.9); Monocytes % (Auto) 6.5 % (1.0-12.0); Platelet Count 122 K/mcL (140-440); RBC 3.12 M/mcL (4.00-5.20)
[2017-04-18 11:36] LABS: Creatine Kinase MB 1.8 ng/ml (0-2.9)
[2017-04-18 11:41] LABS: ALT/SGPT 11 U/l (0-40); Albumin 3.6 gm/dL (3.2-5.2); Albumin/Globulin Ratio 1.2 (1.0-2.3); Alkaline Phosphatase 134 U/L (39-117); Blood Urea Nitrogen 64 mg/dl (8-23); Creatine Kinase 36 IU/L (24-170)
[2017-04-18] MEDS ORDERED: ONDANSETRON 4 MG/2 ML VIAL IV PRN (14:30)
[2017-04-18] MEDS ORDERED: cefTRIAXone 1 GM in DEXTROSE 5% IN WATER 50 ML IV SCH (14:30)
[2017-04-18] MEDS ORDERED: IPRATROPIUM/ALBUTEROL 3 ML AMPUL.NEB NEB PRN (14:30)
[2017-04-18] MEDS: MIDODRINE 5 MG TABLET PO SCH ×2 (14:54→17:06)
[2017-04-18] MEDS: 0.9 % SODIUM CHLORIDE 10 ML SYRINGE IV SCH ×3 (14:56→22:56)
[2017-04-18] MEDS: ACETAMINOPHEN 325 MG TABLET PO PRN (17:00)
[2017-04-18] MEDS: cefTRIAXone 1 GM VIAL IV SCH (17:01)
[2017-04-18] MEDS ORDERED: METOPROLOL TARTRATE 5 MG/5 ML VIAL IV PRN (17:19)
--- NOTE | 2017-04-18 17:49 | Nephrology Consult Note ---
History of Present Illness - Reason for Consult Patient information: Note initiated : 04/18/17 at 5:46 pm Service Date, if different from initiated Date: [] Patient: Julianna Cameron 82 y/o F admitted on 04/18/17 for shortness of breath, cough congestion x 3 days. Chief Complaint: [] Consult date: 04/18/17 end stage renal disease Requesting physician: Johnny Spears - Chief Complaint sob, cough - History of Present Illness Patient is a 82 y/o pleasant white female with PMH of ESRD on HD who is admitted with PNA Patient states that she has sick since monday with cough, chills and then she started have vomiting and since this morning profuse diarrhea she has not been able to keep anything down for the last couple of days she denies CP She denies LE edema she has no sick contacts though her son also had URI recently she denies taking any OTC meds Review of Systems All systems PM: reviewed and no additional remarkable complaints except as stated (as in HPI) Past History Past medical history: ESRD on HD HTN, currently hypotensive on midodrine per cardiology DM type 2 anemia of CKD secondary hyperparathyroidism Afib, s/p TAVR, h/o CHF gout dyslipidemia Past surgical history: S/P TAVR h/o hip fracture s/p internal fixation last year 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 Past family history: son has h/o ESRD and he is on HD Past social history: LIVES WITH HER FAMILY [place] No current addictions Medications and Allergies Home Medications Medication Instructions Recorded Confirmed Type ascorbic acid (vitamin C) ER 500 500 mg PO QDAY tab 09/26/14 04/18/17 History mg tablet,extended release cetirizine 10 mg capsule 10 mg PO ONCE PRN cap 09/26/14 04/18/17 History fluticasone 50 mcg/actuation nasal 1 spray INTRANASAL QDP PRN g 09/26/14 History spray,suspension vitamin-ferrous fumarate 1 tab PO QDAY tab 09/26/14 04/18/17 History 28 mg iron-folic acid 800 mcg tablet acetaminophen 325 mg tablet 650 mg PO BID PRN #1 tab 06/24/15 04/18/17 Rx aspirin 81 mg tablet,delayed 81 mg PO QDAY 11/19/15 04/18/17 History release cyanocobalamin (vit B-12) 1,000 1,000 mcg PO QDAY 11/19/15 04/18/17 History mcg tablet omega-3 fatty acids 1,000 mg 2,000 mg PO QDAY 11/19/15 04/18/17 History capsule RX: Ferrous Sulfate 325 mg PO QDAY 03/16/16 04/18/17 History calcium acetate 667 mg capsule 667 mg PO TID 03/16/16 04/18/17 History sevelamer carbonate 800 mg tablet 800 mg PO TID 03/16/16 04/18/17 History febuxostat 80 mg tablet 80 mg PO QDAY #90 tab 05/26/16 04/18/17 Rx ipratropium bromide 0.03 % nasal 2 spray INTRANASAL BID-TID PRN #30 05/26/1612/26 Rx spray ml Latanoprost Ophth Drops [Xalatan 1 gtt OD HS 07/05/16 04/18/17 History Ophth Drops] nystatin 100,000 unit/gram topical 1 applic TOPICAL BID #15 g 08/16/16 04/18/17 Rx cream midodrine 5 mg tablet 5 mg PO TID 90 Days #270 tab 02/07/17 04/18/17 Rx hydrocodone 7.5 mg-acetaminophen 1 tab PO Q8H PRN #150 tab 02/20/17 04/18/17 Rx 325 mg tablet nystatin 100,000 unit/gram topical 1 applic TOPICAL BID #45 each 02/20/17 Rx powder levothyroxine 100 mcg tablet 100 mcg PO QDAY #30 tab 04/05/17 04/18/17 Rx Allergies Allergy/AdvReac Type Severity Reaction Status Date / Time pregabalin [From Lyrica] Allergy Severe crazy Verified 03/08/17 13:19 allopurinol Allergy Mild Unknown Verified 03/08/17 13:19 diltiazem AdvReac Intermediate Hypertensio Verified 03/08/17 13:19 n muscle relaxers Allergy Severe crazy Uncoded 03/08/17 13:19 Exam - Vital Signs Vital signs: Temp Pulse Resp BP Pulse Ox 98.5 F 119 H 21 134/81 99 04/18/17 15:32 04/18/17 17:27 04/18/17 17:07 04/18/17 17:27 04/18/17 14:46 - General Appearance General appearance: appears started age, chronically ill, frail EENT: mucous membranes moist Neck: no JVD Respiratory: clear Cardiology: no edema, normal S1, normal S2 Gastrointestinal: no tenderness, no organomegaly Integumentary: warm and dry Neurologic: no focal deficit Musculoskeletal: no erythema, no cyanosis Psychiatric: mood/affect appropriate Results - Lab Results 04/18/17 10:31 04/18/17 10:31 Most recent lab results Calcium 8.9 mg/dl (8.6-10.4) 04/18/17 10:31 Assessment and Plan (1) Lung infiltrate Status: Acute (2) ESRD (end stage renal disease) on dialysis Patient with mild hyperkalemia, she is also due for dialysis today given this the plan was do her dialysis for 3. hrs but patient was noted to be persistently tachycardic and hence we stopped her dialysis in 2.5 hrs we did not remove any fluid as she did not have any signs of fluid excess, she had no edema and no pulmonary congestion she is tachypneic and ? this is from acute bronchitis, I have discussed my concerns with hospitalist I will re evaluate her dialysis needs tomorrow Please inform if any change in status Status: Chronic (3) Anemia in CKD (chronic kidney disease) Status: Chronic Comment: on hemodialysis
[2017-04-18] MEDS ORDERED: HYDROCODONE/APAP 7.5/325MG TABLET PO PRN (18:53)
[2017-04-18] MEDS ORDERED: HYDROCODONE/APAP 7.5/325MG TABLET PO ONE (19:07)
--- NOTE | 2017-04-18 19:20 | Internal Med History&Physical ---
Medical - H&P: [facility] Patient information: Note initiated : 04/18/17 at 7:10 pm Service Date, if different from initiated Date: [] Patient: Julianna Cameron 82 y/o F admitted on 04/18/17 for shortness of breath, cough congestion x 3 days. Chief Complaint: [] Chief complaint: cough, general malaise and weakness for 2 days History of present illness: Ms. Cameron is a 82 year old F, with history of ESRD requiring hemodialysis, who presented to the ED with cough, generalized body ache and malaise. Patient has a non-productive cough associated with shortness of breath and subjective fever. She denied wheezing, chest pain and pedal edema. Patient had her annual flu vaccine and denied presence of sick contacts. Patient has had poor appetite over the last 4-5 days, but denies nausea or vomiting. There is no dysuria, although she produces very little urine since she has been on hemodialysis. - Constitutional Constitutional: Present: anorexia, fatigue, malaise, weakness - Cardiovascular Cardiovascular: Present: dyspnea, dyspnea on exertion. Absent: chest pain, edema, palpatations - Respiratory Respiratory: Present: cough, dyspnea, chest congestion. Absent: wheezing, stridor, excessive phlegm production - Gastrointestinal Gastrointestinal: Absent: abdominal pain - Genitourinary Genitourinary: Present: difficulty voiding. Absent: difficulty urinating, urinary urgency - Musculoskeletal Musculoskeletal: Present: muscle weakness - Neurological Neurological: Present: weakness - Psychiatric Psychiatric: Present: change in appetite. 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) Atrial fibrillation (Chronic) Diabetes mellitus (Chronic) Vitamin D deficiency (Chronic) Renal osteodystrophy (Chronic) Osteoporosis (Chronic) Obesity (Chronic) Low back pain (Chronic) Hypothyroidism (acquired) (Chronic) Hyperlipidemia (Chronic) Hypertension (Chronic) Gout (Chronic) Edema (Chronic) Anemia in CKD (chronic kidney disease) (Chronic) Basal cell carcinoma (BCC) (Acute) Abnormality of plasma protein (Resolved) Acidosis (Resolved) Anemia (Resolved) Bradycardia (Resolved) Chronic kidney disease, stage IV (severe) (Resolved) Chronic kidney disease, stage V (Resolved) Chronic kidney disease, stage V (Resolved) Closed left hip fracture (Resolved) Corticosteroid use (Resolved) DM (diabetes mellitus), type 2 with renal complications (Resolved) Decubitus Ulcer (Resolved) Diabetes mellitus, type II (Resolved) Dyspnea (Resolved) ESRD (end stage renal disease) on dialysis (Resolved) Epistaxis (Resolved) Heart failure with acute decompensation, type unknown (Resolved) Hospital discharge follow-up (Resolved) Hypertensive renal disease (Resolved) Hypokalemia (Resolved) Hypotension (Resolved) Influenza A (Resolved) Moderate aortic valve stenosis (Resolved) Moderate to severe aortic stenosis (Resolved) Peripheral vascular disease (Resolved) Pleural effusion (Resolved) Pleurisy (Resolved) Pneumonia (Resolved) Pneumonia (Resolved) Post herpetic neuralgia (Resolved) Scalp laceration (Resolved) Sepsis (Resolved) Supratherapeutic INR (Resolved) Upper respiratory infection (Resolved) Urinary incontinence, urge (Resolved) Urinary tract infection (Resolved) Venous insufficiency (Resolved) Viral pharyngitis (Resolved) Severe aortic stenosis (Ruled-out) Surgical history: Past Surgical History (Last Reviewed 02/20/17 @ 14:46 by Peyton Roy DO) S/P TAVR (transcatheter aortic valve replacement) (Acute) Cholecystectomy planned (Resolved) Eardrum rupture (Resolved) Femur fracture, right (Resolved) History of appendectomy (Resolved) History of cataract surgery (Resolved) History of knee surgery (Resolved) History of surgery (Resolved 07/11/16) Functional capacity: independent ambulation Smoking status: Never smoker Drug use: none Alcohol use: none Medical - H&P: Meds Home Medications Medication Instructions Recorded Confirmed Type ascorbic acid (vitamin C) ER 500 500 mg PO QDAY tab 09/26/14 04/18/17 History mg tablet,extended release cetirizine 10 mg capsule 10 mg PO ONCE PRN cap 09/26/14 04/18/17 History fluticasone 50 mcg/actuation nasal 1 spray INTRANASAL QDP PRN g 09/26/14 History spray,suspension vitamin-ferrous fumarate 1 tab PO QDAY tab 09/26/14 04/18/17 History 28 mg iron-folic acid 800 mcg tablet acetaminophen 325 mg tablet 650 mg PO BID PRN #1 tab 06/24/15 04/18/17 Rx aspirin 81 mg tablet,delayed 81 mg PO QDAY 11/19/15 04/18/17 History release cyanocobalamin (vit B-12) 1,000 1,000 mcg PO QDAY 11/19/15 04/18/17 History mcg tablet omega-3 fatty acids 1,000 mg 2,000 mg PO QDAY 11/19/15 04/18/17 History capsule Ferrous Sulfate 325 mg PO QDAY 03/16/16 04/18/17 History calcium acetate 667 mg capsule 667 mg PO TID 03/16/16 04/18/17 History sevelamer carbonate 800 mg tablet 800 mg PO TID 03/16/16 04/18/17 History febuxostat 80 mg tablet 80 mg PO QDAY #90 tab 05/26/16 04/18/17 Rx ipratropium bromide 0.03 % nasal 2 spray INTRANASAL BID-TID PRN #30 05/26/1612/26 Rx spray ml Latanoprost Ophth Drops [Xalatan 1 gtt OD HS 07/05/16 04/18/17 History Ophth Drops] nystatin 100,000 unit/gram topical 1 applic TOPICAL BID #15 g 08/16/16 04/18/17 Rx cream midodrine 5 mg tablet 5 mg PO TID 90 Days #270 tab 02/07/17 04/18/17 Rx hydrocodone 7.5 mg-acetaminophen 1 tab PO Q8H PRN #150 tab 02/20/17 04/18/17 Rx 325 mg tablet nystatin 100,000 unit/gram topical 1 applic TOPICAL BID #45 each 02/20/17 Rx powder levothyroxine 100 mcg tablet 100 mcg PO QDAY #30 tab 04/05/17 04/18/17 Rx Allergies Allergy/AdvReac Type Severity Reaction Status Date / Time pregabalin [From Lyrica] Allergy Severe crazy Verified 03/08/17 13:19 allopurinol Allergy Mild Unknown Verified 03/08/17 13:19 diltiazem AdvReac Intermediate Hypertensio Verified 03/08/17 13:19 n muscle relaxers Allergy Severe crazy Uncoded 03/08/17 13:19 Medical - H&P: Exam - Constitutional Vitals: Temp Pulse Resp BP Pulse Ox 98.5 F 119 H 28 H 97/47 100 04/18/17 15:32 04/18/17 17:27 04/18/17 18:01 04/18/17 18:01 04/18/17 18:01 General appearance: average body habitus, mild distress - Head Head exam: Present: atraumatic - Eye Eye exam: Present: EOMI - Neck Neck exam: Present: full ROM - Respiratory Respiratory exam: Present: decreased breath sounds, rhonchi - Cardiovascular Cardiovascular exam: Present: normal rate and rhythm, systolic murmur - GI/Abdominal GI/Abdominal exam: Present: normal bowel sounds - Neurological Exam Neurological exam: Present: alert, oriented X3 - Psychiatric Psychiatric exam: Present: normal affect - Skin Skin exam: Present: intact Medical - H&P: Reslt - Labs CBC & Chem 7: 04/18/17 10:31 04/18/17 10:31 Labs: Short CBC 04/18/17 Range/Units 10:31 WBC 6.8 (4.5-11.0) K/mcL Hgb 9.5 L (12.0-15.0) g/dL Hct 28.2 L (36.0-48.0) % Plt Count 122 L (140-440) K/mcL BMP 04/18/17 10:31 Sodium 139 Potassium 5.5 H Chloride 95 L Carbon Dioxide 21 L BUN 64 H Creatinine 7.8 H* Glucose 179 H Calcium 8.9 Cardiac Enzymes 04/18/17 04/18/17 Range/Units 10:31 10:31 Total Creatine Kinase 36 (24-170) IU/L CK-MB (CK-2) 1.8 (0-2.9) ng/ml Troponin T 0.26 H* (0-0.03) ng/ml Liver Function 04/18/17 Range/Units 10:31 Total Bilirubin 0.4 (0.0-1.0) mg/dL AST 36 (0-37) U/l ALT 11 (0-40) U/l Alkaline Phosphatase 134 H (39-117) U/L Albumin 3.6 (3.2-5.2) gm/dL Medical - H&P: A/P (1) Lung infiltrate Current visit: Yes Status: Acute (2) Renal failure Current visit: Yes Status: Acute (3) SOB (shortness of breath) Current visit: Yes Status: Acute (4) Atrial fibrillation Problem details: Not a candidate for anticoagulation given increased risk of bleeding, unable to tolerate rate controlling medications. Current visit: No Status: Acute (5) ESRD (end stage renal disease) on dialysis Current visit: No Status: Chronic - Narrative A/P Narrative: 82-year-old female presented 04/18/2017 with the following problems: + COUGH, SOB AND GENERAL MALAISE. pCXR shows possible RLL infiltrate. Pneumonia vs acute bronchitis. WBC 6.8, pro- calcitonin is pending. Most likely viral. Empirically started on Ceftriaxone and Azithromycin + ESRD on hemodialysis. K is mildly elevated. Received treatment today, but not much fluid removed due to tachycardia + PAROXYSMAL ATRIAL FIBRILLATION Developed in ICU Metoprolol IV as needed for rate > 120. Patient has history of moderate : moderate to severe on Echo 2016. S/P TAVR 2016. Will repeat Echo. Will d/w renal whether potential benefit of anticoagulation outweighs risk of bleeding. + HISTORY OF . S/P TAVR IN 2016. Repeat Echo pending + ELEVATED TROPONIN No symptoms/signs suggestive of ACS. Close observation and FU troponin. DVT_prophylaxis: SCD Code status: DNR, d/w patient at bedside Medical - H&P: Qual - Stroke Symptom Onset Unknown: No - VTE Deep Vein Thrombosis/Pulmonary Embolism Present on Admission: No
[2017-04-18] MEDS: DOCUSATE SODIUM 100 MG CAPSULE PO SCH (20:51)
[2017-04-18] MEDS: LATANOPROST OPHTH DROPS 2.5ML BOTTLE OD SCH (20:52)
[2017-04-18] MEDS: METOPROLOL TARTRATE 25 MG TABLET PO SCH (20:52)
[2017-04-18 21:55] LABS: Appearance,Urine TURBID; Bacteria,Urine MANY /hpf (0); Bilirubin,Urine NEG (NEG); Color,Urine YELLOW; Glucose,Urine (UA) NEGATIVE (NEG); Leukocyte Esterase,Urine 500 /uL (NEG); Nitrate,Urine NEG (NEG); Protein,Urine 100 mg/dL (NEG); Specific Gravity,Urine 1.015 (1.000-1.035); Urine Blood 0.2 mg/dL (<0.03); Urine RBC > 182 /hpf (0-1); Urine Squamous Epithelial Cell 4 /hpf (0-4); Urine WBC > 182 /hpf (0-4); Urobilinogen,Urine NEG (NEG)
[2017-04-19] MEDS: METOPROLOL TARTRATE 25 MG TABLET PO SCH ×3 (03:28→20:36)
[2017-04-19] MEDS: ACETAMINOPHEN 325 MG TABLET PO PRN (03:42)
[2017-04-19] MEDS: 0.9 % SODIUM CHLORIDE 10 ML SYRINGE IV SCH ×3 (05:50→20:53)
[2017-04-19] MEDS: LEVOTHYROXINE 100 MCG TABLET PO SCH (08:00)
[2017-04-19] MEDS ORDERED: MIDODRINE 5 MG TABLET PO SCH (08:00)
[2017-04-19 08:13] LABS: Blood Urea Nitrogen 35 mg/dl (8-23)
[2017-04-19] MEDS ORDERED: ASCORBIC ACID 500 MG TABLET PO SCH (09:00)
[2017-04-19] MEDS: SEVELAMER 800 MG TABLET PO SCH ×3 (09:37→18:00)
[2017-04-19] MEDS: DOCUSATE SODIUM 100 MG CAPSULE PO SCH ×2 (09:37→20:36)
[2017-04-19] MEDS: CYANOCOBALAMIN (VITAMIN B-12) 500 MCG TABLET PO SCH (09:37)
[2017-04-19] MEDS: Febuxostat [Uloric] 80 MG PO SCH (09:37)
[2017-04-19] MEDS: PRENATAL VIT/IRON FUMARATE/FA 1 TAB TABLET PO SCH (09:37)
[2017-04-19] MEDS: ASPIRIN 81 MG TAB.CHEW PO SCH (09:38)
[2017-04-19] MEDS: MIDODRINE 5 MG TABLET PO SCH ×3 (09:38→18:00)
[2017-04-19] MEDS: CALCIUM ACETATE 667 MG CAPSULE PO SCH ×3 (09:38→18:00)
[2017-04-19] MEDS: HYDROCODONE/APAP 7.5/325MG TABLET PO PRN ×2 (09:39→20:40)
[2017-04-19] MEDS: FISH OIL 1,000 MG CAPSULE PO SCH (09:54)
[2017-04-19] MEDS: cefTRIAXone 1 GM VIAL IV SCH (09:54)
[2017-04-19] MEDS: FERROUS SULFATE 325 MG TABLET PO SCH (10:02)
[2017-04-19] MEDS: LATANOPROST OPHTH DROPS 2.5ML BOTTLE OD SCH (20:36)
--- NOTE | 2017-04-19 23:13 | Internal Med Progress Note ---
Medical - PN: Subj Patient information: Note initiated : 04/19/17 at 11:13 pm Service Date, if different from initiated Date: [] Patient: Julianna Cameron 82 y/o F admitted on 04/18/17 for SOB, Cough Congestion x 3 days/Lung Infiltrate. Interval history: LAST NIGHT DEVELOPED AFIB WITH RVR IN 140'S. GOT ONE DOSE OF METOPROLOL IV 5 MG. RATE DOWN TO < 100. THIS AM DOING MUCH BETTER. LESS SOB BREATH AND LESS COUGHING. AFEBRILE. - Constitutional Vitals: Vital Signs Temp Pulse Resp BP Pulse Ox 99.0 F H 88 21 109/50 95 04/19/17 20:01 04/19/17 22:01 04/19/17 22:01 04/19/17 22:01 04/19/17 22:01 Period Temp Pulse Resp BP Sys/Worrell Pulse Ox Last 24 Hr 97.9 F-99.0 F 2-92 15-27 90-140/37-68 92-100 Intake and Output 04/19/17 04/19/17 04/20/17 13:59 21:59 05:59 Intake Total 240 / 240 560 / 560 Output Total 0 / 0 0 / 0 Balance 240 / 240 560 / 560 Weight 141 lb 8 oz Patient Weight 04/20/17 05:59 Weight 141 lb 8 oz Intake & Output: Intake & Output 04/19/17 04/19/17 04/20/17 13:59 21:59 05:59 Intake Total 240 / 240 560 / 560 Output Total 0 / 0 0 / 0 Balance 240 / 240 560 / 560 Weight 141 lb 8 oz Intake: Oral 240 / 240 560 / 560 Output: Void Amount 0 / 0 0 / 0 Other: Meal Breakfast Dinner Percent of Meal Consumed 50% 25% Feeding Ability Independent Independent General appearance: average body habitus, no acute distress - Respiratory Respiratory exam: Present: normal respiratory exam - Cardiovascular Cardiovascular exam: Present: irregular rhythm, systolic murmur - GI/Abdominal GI/Abdominal exam: Present: normal bowel sounds, soft - Extremities Exam Extremities exam: Absent: calf tenderness, pedal edema Medical - PN: Obj Da - Labs CBC & Chem 7: 04/18/17 10:31 04/19/17 03:37 Labs: Abnormal Lab Results 04/19/17 04/19/17 04/19/17 06:07 03:37 00:00 RBC Hgb Hct RDW Plt Count Gran % Lymph % (Auto) Lymph # (Auto) D-Dimer VBG Lactic Acid Potassium Chloride Carbon Dioxide Anion Gap 19.0 H BUN 35 H Creatinine 5.1 H* Glucose Calcium 8.5 L Alkaline Phosphatase Troponin T 0.19 H* 0.19 H* NT-Pro-B Natriuret Pep 54252.0 H Albumin 3.0 L Urine Protein Urine Occult Blood Ur Leukocyte Esterase Urine RBC Urine WBC Urine Bacteria 04/18/17 04/18/17 04/18/17 18:01 12:12 10:31 RBC Hgb Hct RDW Plt Count Gran % Lymph % (Auto) Lymph # (Auto) D-Dimer VBG Lactic Acid 2.3 H Potassium Chloride Carbon Dioxide Anion Gap BUN Creatinine Glucose Calcium Alkaline Phosphatase Troponin T 0.22 H* NT-Pro-B Natriuret Pep Albumin Urine Protein 100 A Urine Occult Blood 0.2 A Ur Leukocyte Esterase 500 A Urine RBC > 182 H Urine WBC > 182 H Urine Bacteria Many A 04/18/17 04/18/17 04/18/17 10:31 10:31 10:31 RBC Hgb Hct RDW Plt Count Gran % Lymph % (Auto) Lymph # (Auto) D-Dimer 7.05 H VBG Lactic Acid Potassium 5.5 H Chloride 95 L Carbon Dioxide 21 L Anion Gap 23.0 H BUN 64 H Creatinine 7.8 H* Glucose 179 H Calcium Alkaline Phosphatase 134 H Troponin T 0.26 H* NT-Pro-B Natriuret Pep 44205.0 H Albumin Urine Protein Urine Occult Blood Ur Leukocyte Esterase Urine RBC Urine WBC Urine Bacteria 04/18/17 10:31 RBC 3.12 L Hgb 9.5 L Hct 28.2 L RDW 17.0 H Plt Count 122 L Gran % 88.0 H Lymph % (Auto) 5.2 L Lymph # (Auto) 0.4 L D-Dimer VBG Lactic Acid Potassium Chloride Carbon Dioxide Anion Gap BUN Creatinine Glucose Calcium Alkaline Phosphatase Troponin T NT-Pro-B Natriuret Pep Albumin Urine Protein Urine Occult Blood Ur Leukocyte Esterase Urine RBC Urine WBC Urine Bacteria Meds: Medications Acetaminophen (Tylenol) 650 mg PO Q4-6HP PRN PRN Reason: PAIN/FEVER > 101 Last Admin: 04/19/17 03:42 Dose: 650 mg Hydrocodone Bitart/Acetaminophen ([place] 7.5/325mg) 1 tab PO Q8HP PRN PRN Reason: PAIN LEVEL 3-6 Last Admin: 04/19/17 20:40 Dose: 1 tab Albuterol/Ipratropium (Duoneb) 3 ml NEB Q4HP PRN PRN Reason: Wheezing Aspirin (Aspirin) 81 mg PO DAILY [facility] Last Admin: 04/19/17 09:38 Dose: 81 mg Calcium Acetate (Phoslo) 667 mg PO TIDCC [facility] Last Admin: 04/19/17 18:00 Dose: 667 mg Ceftriaxone Sodium (Rocephin) 1 gm IV DAILY [facility] Last Admin: 04/19/17 09:54 Dose: 1 gm Cyanocobalamin (Vitamin B-12) 1,000 mcg PO DAILY [facility] Last Admin: 04/19/17 09:37 Dose: 1,000 mcg Docusate Sodium (Colace) 100 mg PO BID [facility] Last Admin: 04/19/17 20:36 Dose: 100 mg Ferrous Sulfate (Ferrous Sulfate) 325 mg PO DAILY@1200 [facility] Last Admin: 04/19/17 10:02 Dose: 325 mg Fish Oil (Fish Oil) 2,000 mg PO DAILY [facility] Last Admin: 04/19/17 09:54 Dose: 2,000 mg Latanoprost (Xalatan Ophth Drops) 1 gtt OD HS [facility] Last Admin: 04/19/17 20:36 Dose: Not Given Levothyroxine Sodium (Synthroid) 100 mcg PO QAMAC [facility] Last Admin: 04/19/17 08:00 Dose: 100 mcg Metoprolol Tartrate (Lopressor) 5 mg IV Q4HP PRN PRN Reason: Tachyarrhythmias Last Admin: 04/18/17 17:39 Dose: 5 mg Metoprolol Tartrate (Lopressor) 12.5 mg PO BID [facility] Last Admin: 04/19/17 20:36 Dose: 12.5 mg Midodrine (Midodrine Hcl) 5 mg PO TID@0800,1200,1700 [facility] Last Admin: 04/19/17 18:00 Dose: 5 mg Febuxostat [Uloric] (80 Mg) 1 dose PO DAILY [facility] Last Admin: 04/19/17 09:37 Dose: 1 dose Ondansetron HCl (Zofran) 4 mg IV Q4-6HP PRN PRN Reason: Nausea And Vomiting Prenat Multivit/Auto Washer/Iron/Folic Ac ( Vitamin) 1 tab PO DAILY [facility] Last Admin: 04/19/17 09:37 Dose: 1 tab Sevelamer Carbonate (Renvela) 800 mg PO TIDCC [facility] Last Admin: 04/19/17 18:00 Dose: 800 mg Sodium Chloride (Saline Flush) 10 ml IV Q8 [facility] Last Admin: 04/19/17 20:53 Dose: 10 ml Medical - PN: A/P - Time Spent With Patient Total time spent is greater than 50% in coordination of care (as documented) at patient's floor/unit and/or counseling patient: less than 15 minutes (1) Lung infiltrate Status: Acute Current Visit: Yes (2) Renal failure Status: Acute Current Visit: Yes (3) SOB (shortness of breath) Status: Acute Current Visit: Yes (4) Atrial fibrillation Problem details: Not a candidate for anticoagulation given increased risk of bleeding, unable to tolerate rate controlling medications. Status: Acute Current Visit: No (5) ESRD (end stage renal disease) on dialysis Status: Chronic Current Visit: No - Narrative A/P Narrative: A/P Narrative: 82-year-old female presented 04/18/2017 with the following problems: + COUGH, SOB AND GENERAL MALAISE. pCXR shows possible RLL infiltrate. Pneumonia vs acute bronchitis. WBC 6.8, pro- calcitonin is pending. Most likely viral. Empirically started on Ceftriaxone and Azithromycin + ESRD on hemodialysis. K is mildly elevated. Received treatment today, but not much fluid removed due to tachycardia + PAROXYSMAL ATRIAL FIBRILLATION Developed in ICU Metoprolol IV as needed for rate > 120. Patient has history of moderate : moderate to severe on Echo 2016. S/P TAVR 2016. Will repeat Echo. Will d/w renal whether potential benefit of anticoagulation outweighs risk of bleeding. + HISTORY OF . S/P TAVR IN 2016. Repeat Echo pending + ELEVATED TROPONIN No symptoms/signs suggestive of ACS. Close observation and FU troponin. DVT_prophylaxis: SCD Code status: DNR, d/w patient at bedside Medical - PN: Qual - Stroke Symptom Onset Unknown: No - VTE Deep Vein Thrombosis/Pulmonary Embolism Present on Admission: No
[2017-04-20] MEDS: 0.9 % SODIUM CHLORIDE 10 ML SYRINGE IV SCH ×4 (06:28→21:12)
[2017-04-20] MEDS: LEVOTHYROXINE 100 MCG TABLET PO SCH (07:24)
[2017-04-20] MEDS: CYANOCOBALAMIN (VITAMIN B-12) 500 MCG TABLET PO SCH (09:36)
[2017-04-20] MEDS: MIDODRINE 5 MG TABLET PO SCH ×3 (09:36→17:28)
[2017-04-20] MEDS: CALCIUM ACETATE 667 MG CAPSULE PO SCH (09:36)
[2017-04-20] MEDS: ASPIRIN 81 MG TAB.CHEW PO SCH (09:36)
[2017-04-20] MEDS: METOPROLOL TARTRATE 25 MG TABLET PO SCH (09:38)
[2017-04-20] MEDS: SEVELAMER 800 MG TABLET PO SCH ×3 (09:38→17:28)
[2017-04-20] MEDS: DOCUSATE SODIUM 100 MG CAPSULE PO SCH ×2 (09:39→20:41)
[2017-04-20] MEDS: Febuxostat [Uloric] 80 MG PO SCH (09:39)
[2017-04-20] MEDS: PRENATAL VIT/IRON FUMARATE/FA 1 TAB TABLET PO SCH (09:40)
[2017-04-20] MEDS: FISH OIL 1,000 MG CAPSULE PO SCH (09:51)
[2017-04-20] MEDS: cefTRIAXone 1 GM VIAL IV SCH (09:51)
[2017-04-20] MEDS: HYDROCODONE/APAP 7.5/325MG TABLET PO PRN (10:10)
[2017-04-20] MEDS: FERROUS SULFATE 325 MG TABLET PO SCH (12:30)
[2017-04-20] MEDS ORDERED: ACETAMINOPHEN 325 MG TABLET PO PRN (14:01)
[2017-04-20] MEDS ORDERED: IPRATROPIUM/ALBUTEROL 3 ML AMPUL.NEB NEB PRN (14:01)
[2017-04-20] MEDS ORDERED: AZITHROMYCIN 250 MG TABLET PO ONE (14:01)
[2017-04-20] MEDS ORDERED: METOPROLOL TARTRATE 5 MG/5 ML VIAL IV PRN (14:01)
[2017-04-20] MEDS ORDERED: HYDROCODONE/APAP 7.5/325MG TABLET PO PRN (14:01)
--- NOTE | 2017-04-20 17:00 | Nephrology Progress Note ---
Subjective Patient information: Note initiated : 04/20/17 at 4:58 pm Service Date, if different from initiated Date: [] Patient: Julianna Cameron 82 y/o F admitted on 04/18/17 for SOB, Cough Congestion x 3 days/Lung Infiltrate. Chief Complaint: [] Principal diagnosis: PNA Interval history: No new issues feels better does have some desat off of oxygen, on antibiotics and bronchodilators added tolerated dialysis with no issues denies SOB, CP no vomiting tolerating po intake Pertinent ROS: as above Objective - Vital Signs Vital signs: Vital Signs Temp Pulse Resp BP Pulse Ox 04/20/17 16:36 90 16 97 04/20/17 15:56 98.5 F 20 103/39 96 04/20/17 15:55 28 H 04/20/17 15:49 98.3 F 79 92/51 04/20/17 15:47 24 H 110/51 04/20/17 15:45 19 92/51 04/20/17 15:30 83 18 107/54 96 04/20/17 15:22 80 107/54 04/20/17 15:15 78 20 98/54 95 04/20/17 15:08 76 98/54 04/20/17 15:00 17 99/55 04/20/17 14:52 74 99/55 04/20/17 14:45 18 110/58 04/20/17 14:39 75 110/58 04/20/17 14:30 18 89/55 04/20/17 14:23 74 89/55 04/20/17 14:15 21 97/51 04/20/17 14:08 87 97/51 04/20/17 14:01 21 88/48 04/20/17 13:54 82 88/48 04/20/17 13:44 18 99/53 04/20/17 13:36 82 99/53 04/20/17 13:15 24 H 105/52 04/20/17 13:06 79 105/52 04/20/17 13:01 15 106/62 04/20/17 12:45 18 109/53 04/20/17 12:37 77 109/53 04/20/17 12:32 17 04/20/17 12:15 17 121/52 04/20/17 12:10 97.6 F 71 121/52 04/20/17 12:01 98.4 F 78 19 104/56 98 04/20/17 11:02 81 18 114/46 99 04/20/17 10:48 88 20 99 04/20/17 10:02 101 H 20 97/57 99 04/20/17 09:02 90 22 120/58 100 04/20/17 08:02 79 21 133/72 99 04/20/17 07:21 26 H 04/20/17 07:01 99.4 F H 22 116/59 98 04/20/17 07:00 99 04/20/17 06:01 82 18 132/61 96 04/20/17 05:01 73 14 123/62 96 04/20/17 04:01 97.8 F 80 22 115/59 98 04/20/17 03:01 75 17 119/54 98 04/20/17 02:26 19 04/20/17 02:01 19 131/69 04/20/17 01:01 66 16 111/59 100 04/20/17 00:01 97.8 F 87 18 109/56 100 04/19/17 23:01 83 18 112/61 98 04/19/17 22:01 88 21 109/50 95 04/19/17 21:01 88 24 H 127/51 99 04/19/17 20:52 85 18 97 04/19/17 20:01 99.0 F H 89 24 H 125/49 92 04/19/17 19:10 16 96 04/19/17 19:01 86 21 130/60 95 04/19/17 18:01 25 H 125/59 96 04/19/17 17:02 18 140/55 94 Intake and Output 04/20/17 04/20/17 04/20/17 05:59 13:59 21:59 Intake Total 120 / 120 460 / 460 Output Total 0 / 0 1100 / 1100 Balance 120 / 120 460 / 460 -1100 / -1100 Intake: Oral 120 / 120 460 / 460 Output: Void Amount 0 / 0 Hemodialysis UF 1100 / 1100 Other: Meal Lunch Percent of Meal Consumed 100% Feeding Ability Independent # Bowel Movements 0 Intake & Output: Intake & Output 04/20/17 04/20/17 04/20/17 05:59 13:59 21:59 Intake Total 120 / 120 460 / 460 Output Total 0 / 0 1100 / 1100 Balance 120 / 120 460 / 460 -1100 / -1100 Intake: Oral 120 / 120 460 / 460 Output: Void Amount 0 / 0 Hemodialysis UF 1100 / 1100 Other: Meal Lunch Percent of Meal Consumed 100% Feeding Ability Independent # Bowel Movements 0 - General Appearance General appearance: appears started age, chronically ill EENT: mucous membranes moist Neck: no JVD Respiratory: rales, rhonchi Cardiology: no rub, no edema, irregular rhythm Gastrointestinal: no tenderness, no guarding Integumentary: warm and dry Neurologic: alert and oriented x3 Musculoskeletal: no erythema, no cyanosis Psychiatric: mood/affect appropriate - Lab 04/18/17 10:31 04/19/17 03:37 Most recent lab results Calcium 8.5 mg/dl (8.6-10.4) L 04/19/17 03:37 Phosphorus 3.8 mg/dL (2.7-4.5) 04/19/17 03:37 Assessment and Plan (1) Lung infiltrate Status: Acute (2) ESRD (end stage renal disease) on dialysis HD done today for 3.5hrs using revaclear 400 dialyser, 3K/2.5CA DIALYSATE, QB 350ml/min, qd 700ml/min, uf goal of 1-1.5L next HD on sat PNA/bronchitis: on antibiotics/bronchodilators may discharge if stable, will defer to Dr Trinidad Chronic hypotension on midodrine, ct same Anemia of CKD: will ct maegan as outpt Will follow in dialysis after discharge Status: Chronic (3) Anemia in CKD (chronic kidney disease) Status: Chronic Comment: on hemodialysis
[2017-04-20] MEDS ORDERED: METOPROLOL TARTRATE 25 MG TABLET PO SCH (21:00)
[2017-04-20] MEDS ORDERED: LATANOPROST OPHTH DROPS 2.5ML BOTTLE OD SCH (21:00)
--- NOTE | 2017-04-20 23:38 | Internal Med Progress Note ---
Medical - PN: Subj Patient information: Note initiated : 04/20/17 at 11:38 pm Service Date, if different from initiated Date: [] Patient: Julianna Cameron 82 y/o F admitted on 04/18/17 for SOB, Cough Congestion x 3 days/Lung Infiltrate. Interval history: LAST NIGHT DEVELOPED AFIB WITH RVR IN 140'S. GOT ONE DOSE OF METOPROLOL IV 5 MG. RATE DOWN TO < 100. 04/19:DOING MUCH BETTER. LESS SOB BREATH AND LESS COUGHING. AFEBRILE. 04/20: Had HD Feeling well, but requiring suppl O2 due to drop to 84% with minimal exertion. - Constitutional Vitals: Vital Signs Temp Pulse Resp BP Pulse Ox 99.0 F H 102 H 18 106/51 98 04/20/17 20:35 04/20/17 20:35 04/20/17 20:35 04/20/17 20:35 04/20/17 20:35 Period Temp Pulse Resp BP Sys/Worrell Pulse Ox Last 24 Hr 97.6 F-99.4 F 66-102 14-28 88-133/39-72 95-100 Intake and Output 04/20/17 04/20/17 04/21/17 13:59 21:59 05:59 Intake Total 460 / 460 Output Total 1100 / 1100 Balance 460 / 460 -1100 / -1100 Weight 138 lb 4.8 oz Patient Weight 04/21/17 05:59 Weight 138 lb 4.8 oz Intake & Output: Intake & Output 04/20/17 04/20/17 04/21/17 13:59 21:59 05:59 Intake Total 460 / 460 Output Total 1100 / 1100 Balance 460 / 460 -1100 / -1100 Weight 138 lb 4.8 oz Intake: Oral 460 / 460 Output: Hemodialysis UF 1100 / 1100 Other: Meal Lunch Percent of Meal Consumed 100% Feeding Ability Independent General appearance: cooperative, no acute distress - Respiratory Respiratory exam: Present: prolonged expiratory phase, rhonchi. Absent: accessory muscle use - Cardiovascular Cardiovascular exam: Present: normal rate and rhythm - GI/Abdominal GI/Abdominal exam: Present: normal bowel sounds, soft - Extremities Exam Extremities exam: Absent: calf tenderness, pedal edema Medical - PN: Obj Da - Labs CBC & Chem 7: 04/18/17 10:31 04/19/17 03:37 Labs: Abnormal Lab Results 04/19/17 04/19/17 04/19/17 06:07 03:37 00:00 RBC Hgb Hct RDW Plt Count Gran % Lymph % (Auto) Lymph # (Auto) D-Dimer VBG Lactic Acid Potassium Chloride Carbon Dioxide Anion Gap 19.0 H BUN 35 H Creatinine 5.1 H* Glucose Calcium 8.5 L Alkaline Phosphatase Troponin T 0.19 H* 0.19 H* NT-Pro-B Natriuret Pep 35571.0 H Albumin 3.0 L Urine Protein Urine Occult Blood Ur Leukocyte Esterase Urine RBC Urine WBC Urine Bacteria 04/18/17 04/18/17 04/18/17 18:01 12:12 10:31 RBC Hgb Hct RDW Plt Count Gran % Lymph % (Auto) Lymph # (Auto) D-Dimer VBG Lactic Acid 2.3 H Potassium Chloride Carbon Dioxide Anion Gap BUN Creatinine Glucose Calcium Alkaline Phosphatase Troponin T 0.22 H* NT-Pro-B Natriuret Pep Albumin Urine Protein 100 A Urine Occult Blood 0.2 A Ur Leukocyte Esterase 500 A Urine RBC > 182 H Urine WBC > 182 H Urine Bacteria Many A 04/18/17 04/18/17 04/18/17 10:31 10:31 10:31 RBC Hgb Hct RDW Plt Count Gran % Lymph % (Auto) Lymph # (Auto) D-Dimer 7.05 H VBG Lactic Acid Potassium 5.5 H Chloride 95 L Carbon Dioxide 21 L Anion Gap 23.0 H BUN 64 H Creatinine 7.8 H* Glucose 179 H Calcium Alkaline Phosphatase 134 H Troponin T 0.26 H* NT-Pro-B Natriuret Pep 95524.0 H Albumin Urine Protein Urine Occult Blood Ur Leukocyte Esterase Urine RBC Urine WBC Urine Bacteria 04/18/17 10:31 RBC 3.12 L Hgb 9.5 L Hct 28.2 L RDW 17.0 H Plt Count 122 L Gran % 88.0 H Lymph % (Auto) 5.2 L Lymph # (Auto) 0.4 L D-Dimer VBG Lactic Acid Potassium Chloride Carbon Dioxide Anion Gap BUN Creatinine Glucose Calcium Alkaline Phosphatase Troponin T NT-Pro-B Natriuret Pep Albumin Urine Protein Urine Occult Blood Ur Leukocyte Esterase Urine RBC Urine WBC Urine Bacteria Meds: Medications Acetaminophen (Tylenol) 650 mg PO Q4-6HP PRN PRN Reason: PAIN/FEVER > 101 Hydrocodone Bitart/Acetaminophen ([place] 7.5/325mg) 1 tab PO Q8HP PRN PRN Reason: PAIN LEVEL 3-6 Albuterol/Ipratropium (Duoneb) 3 ml NEB Q4HP PRN PRN Reason: Wheezing Last Admin: 04/20/17 16:34 Dose: 3 ml Aspirin (Aspirin) 81 mg PO DAILY [facility] Cyanocobalamin (Vitamin B-12) 1,000 mcg PO DAILY [facility] Docusate Sodium (Colace) 100 mg PO BID [facility] Last Admin: 04/20/17 20:41 Dose: Not Given Ferrous Sulfate (Ferrous Sulfate) 325 mg PO DAILY@1200 [facility] Fish Oil (Fish Oil) 2,000 mg PO DAILY [facility] Latanoprost (Xalatan Ophth Drops) 1 gtt OD HS [facility] Last Admin: 04/20/17 20:42 Dose: Not Given Levothyroxine Sodium (Synthroid) 100 mcg PO QAMAC [facility] Metoprolol Tartrate (Lopressor) 5 mg IV Q4HP PRN PRN Reason: Tachyarrhythmias Midodrine (Midodrine Hcl) 5 mg PO TID@0800,1200,1700 [facility] Last Admin: 04/20/17 17:28 Dose: 5 mg Febuxostat [Uloric] (80 Mg) 1 dose PO DAILY [facility] Prenat Multivit/Lamoni/Iron/Folic Ac ( Vitamin) 1 tab PO DAILY [facility] Sevelamer Carbonate (Renvela) 800 mg PO TIDCC [facility] Last Admin: 04/20/17 17:28 Dose: 800 mg Sodium Chloride (Saline Flush) 10 ml IV Q8 [facility] Last Admin: 04/20/17 21:12 Dose: 10 ml Medical - PN: A/P - Time Spent With Patient Total time spent is greater than 50% in coordination of care (as documented) at patient's floor/unit and/or counseling patient: 15 - 24 minutes (1) Lung infiltrate Status: Acute Current Visit: Yes (2) Renal failure Status: Acute Current Visit: Yes (3) SOB (shortness of breath) Status: Acute Current Visit: Yes (4) Atrial fibrillation Problem details: Not a candidate for anticoagulation given increased risk of bleeding, unable to tolerate rate controlling medications. Status: Acute Current Visit: No (5) ESRD (end stage renal disease) on dialysis Status: Chronic Current Visit: No - Narrative A/P Narrative: A/P Narrative: 82-year-old female presented 04/18/2017 with the following problems: + COUGH, SOB AND GENERAL MALAISE. pCXR shows possible RLL infiltrate. Pneumonia vs acute bronchitis. WBC 6.8, pro- calcitonin is elevated at .66 Empirically started on Ceftriaxone and Azithromycin Improving but still requiring supplemental oxygen + ESRD on hemodialysis. K is mildly elevated. Received treatment today, but not much fluid removed due to tachycardia + PAROXYSMAL ATRIAL FIBRILLATION Developed in ICU Metoprolol IV as needed for rate > 120. Patient has history of moderate : moderate to severe on Echo 2016. S/P TAVR 2016. + HISTORY OF . S/P TAVR IN 2016. Followed by cardiology + ELEVATED TROPONIN No symptoms/signs suggestive of ACS. Close observation and FU troponin. DVT_prophylaxis: SCD PLAN: Check need for home oxygen and discharge in am when stable. Medical - PN: Qual - Stroke Symptom Onset Unknown: No - VTE Deep Vein Thrombosis/Pulmonary Embolism Present on Admission: No
[2017-04-21] MEDS: 0.9 % SODIUM CHLORIDE 10 ML SYRINGE IV SCH ×2 (05:48→07:19)
[2017-04-21] MEDS ORDERED: LEVOTHYROXINE 100 MCG TABLET PO SCH (07:30)
[2017-04-21] MEDS: MIDODRINE 5 MG TABLET PO SCH ×2 (08:14→12:12)
[2017-04-21] MEDS: SEVELAMER 800 MG TABLET PO SCH ×2 (08:14→12:12)
[2017-04-21] MEDS ORDERED: PRENATAL VIT/IRON FUMARATE/FA 1 TAB TABLET PO SCH (09:00)
[2017-04-21] MEDS ORDERED: CYANOCOBALAMIN (VITAMIN B-12) 500 MCG TABLET PO SCH (09:00)
[2017-04-21] MEDS ORDERED: ASPIRIN 81 MG TAB.CHEW PO SCH (09:00)
[2017-04-21] MEDS ORDERED: FISH OIL 1,000 MG CAPSULE PO SCH (09:00)
[2017-04-21] MEDS ORDERED: Febuxostat [Uloric] 80 MG PO SCH (09:00)
[2017-04-21] MEDS: DOCUSATE SODIUM 100 MG CAPSULE PO SCH (09:51)
[2017-04-21] MEDS ORDERED: AZITHROMYCIN 250 MG TABLET PO ONE (10:38)
--- NOTE | 2017-04-21 11:14 | Discharge Summary ---
Medical - DS: Prov Patient information: Note initiated : 04/21/17 at 11:11 am Service Date, if different from initiated Date: [] Patient: Julianna Cameron 82 y/o F admitted on 04/18/17 for SOB, Cough Congestion x 3 days/Lung Infiltrate. Chief Complaint: [] Date of admission: 04/18/17 14:05 Discharge date: 04/21/17 Primary care physician: Peyton Roy DO Consults: 04/18/17 12:13 Consult to Physician [CONS] Stat Comment: Consulting Provider: Emerald Duke Reason For Exam: Physician to Consult 04/18/17 12:15 Consult to Physician [CONS] Stat Comment: Consulting Provider: Ventura Trinidad Reason For Exam: Physician to Consult Medical - DS: Meds - Discharge Medications Active and Home Medications: Home Medications ascorbic acid (vitamin C) ER 500 mg tablet,extended release 500 mg PO QDAY tab 09/26/14 [History Confirmed 04/18/17 Last Taken 06/17/15] cetirizine 10 mg capsule 10 mg PO ONCE PRN cap 09/26/14 [History Confirmed 12/26 Last Taken 06/17/15 07:00] fluticasone 50 mcg/actuation nasal spray,suspension 1 spray INTRANASAL QDP PRN g 09/26/14 [History Confirmed 04/18/17 Last Taken 06/16/15] vitamin-ferrous fumarate 28 mg iron-folic acid 800 mcg tablet 1 tab PO QDAY tab 09/26/14 [History Confirmed 04/18/17 Last Taken 06/16/15] acetaminophen 325 mg tablet 650 mg PO BID PRN #1 tab 06/24/15 [Rx Confirmed 12/26 Last Taken Unknown] aspirin 81 mg tablet,delayed release 81 mg PO QDAY 11/19/15 [History Confirmed 04/18/17 Last Taken Unknown] cyanocobalamin (vit B-12) 1,000 mcg tablet 1,000 mcg PO QDAY 11/19/15 [History Confirmed 04/18/17 Last Taken Unknown] omega-3 fatty acids 1,000 mg capsule 2,000 mg PO QDAY 11/19/15 [History Confirmed 04/18/17 Last Taken Unknown] Ferrous Sulfate 325 mg PO QDAY 03/16/16 [History Confirmed 04/18/17 Last Taken Unknown] calcium acetate 667 mg capsule 667 mg PO TID 03/16/16 [History Confirmed Last Taken Unknown] sevelamer carbonate 800 mg tablet 800 mg PO TID 03/16/16 [History Confirmed 12/26 Last Taken Unknown] febuxostat 80 mg tablet 80 mg PO QDAY #90 tab 05/26/16 [Rx Confirmed 04/18/17 Last Taken Unknown] ipratropium bromide 0.03 % nasal spray 2 spray INTRANASAL BID-TID PRN #30 ml [Rx Confirmed 04/18/17 Last Taken Unknown] Latanoprost Ophth Drops [Xalatan Ophth Drops] 1 gtt OD HS 07/05/16 [History Confirmed 04/18/17 Last Taken Unknown] nystatin 100,000 unit/gram topical cream 1 applic TOPICAL BID #15 g 08/16/16 [ Rx Confirmed 04/18/17 Last Taken Unknown] midodrine 5 mg tablet 5 mg PO TID 90 Days #270 tab 02/07/17 [Rx Confirmed Last Taken Unknown] hydrocodone 7.5 mg-acetaminophen 325 mg tablet 1 tab PO Q8H PRN #150 tab [Rx Confirmed 04/18/17 Last Taken Unknown] nystatin 100,000 unit/gram topical powder 1 applic TOPICAL BID #45 each [Rx Confirmed 04/18/17 Last Taken Unknown] levothyroxine 100 mcg tablet 100 mcg PO QDAY #30 tab 04/05/17 [Rx Confirmed 12/26 Last Taken Unknown] Medical - DS: Hosp Hospital course: 82-year-old female presented 04/18/2017 with the following problems: + COUGH, SOB AND GENERAL MALAISE. pCXR shows possible RLL infiltrate. Pneumonia vs acute bronchitis. WBC 6.8, pro- calcitonin is elevated at .66 Empirically started on Ceftriaxone and Azithromycin + ESRD on hemodialysis. K is mildly elevated. Received last treatment PAROXYSMAL ATRIAL FIBRILLATION Developed in ICU Metoprolol IV as needed for rate > 120. Patient has history of moderate : moderate to severe on Echo 2015. S/P TAVR 2016. Not started on Metoprolol po as patient tend to drop SBP to < 90 during HD Baseline HR 70-80. SBP 130 at rest. + HISTORY OF . S/P TAVR IN 2016. Followed by cardiology + ELEVATED TROPONIN No symptoms/signs suggestive of ACS. No intervention needed. Recent ECHO done by her customer experience specialist. Patient has been evaluated by PT and RT this am. She is ambulating well with walker. O2 saturation on RA remained well above 90%. She will be discharged home this am. Only new med: Azithromycin 250 mg to finish course. Usual home meds to continue without changes. Discharge diagnosis: Pneumonia Secondary discharge diagnosis: ESRD PAROXYSMAL ATRIAL FIBRILLATION S/P TAVR Reason for admission: sob, cough Pertinent studies/significant findings: pCXR: IMPRESSION: 1. Small focal density at the right costophrenic angle 2. Improved chest x-ray since 08/18/2016 - Time Spent with Patient Total time spent providing and/or coordinating discharge services: Less than 30 minutes Medical - DS: Exam - Constitutional Vitals: Vital Signs Temp Pulse Resp BP Pulse Ox 04/21/17 07:01 99.8 F H 18 130/49 99 04/21/17 07:00 98 04/21/17 05:05 97.8 F 18 116/49 98 04/21/17 00:26 18 99 04/20/17 20:35 99.0 F H 102 H 18 106/51 98 04/20/17 16:36 90 16 97 04/20/17 16:01 103/39 04/20/17 15:56 98.5 F 20 103/39 96 04/20/17 15:55 28 H 04/20/17 15:49 98.3 F 79 92/51 04/20/17 15:47 24 H 110/51 04/20/17 15:45 19 92/51 04/20/17 15:30 83 18 107/54 96 04/20/17 15:22 80 107/54 04/20/17 15:15 78 20 98/54 95 04/20/17 15:08 76 98/54 04/20/17 15:00 17 99/55 04/20/17 14:52 74 99/55 04/20/17 14:45 18 110/58 04/20/17 14:39 75 110/58 04/20/17 14:30 18 89/55 04/20/17 14:23 74 89/55 04/20/17 14:15 21 97/51 04/20/17 14:08 87 97/51 04/20/17 14:01 21 88/48 04/20/17 13:54 82 88/48 04/20/17 13:44 18 99/53 04/20/17 13:36 82 99/53 04/20/17 13:15 24 H 105/52 04/20/17 13:06 79 105/52 04/20/17 13:01 15 106/62 04/20/17 12:45 18 109/53 04/20/17 12:37 77 109/53 04/20/17 12:32 17 04/20/17 12:15 17 121/52 04/20/17 12:10 97.6 F 71 121/52 04/20/17 12:01 98.4 F 78 19 104/56 98 Intake and Output 04/20/17 04/21/17 04/21/17 21:59 05:59 13:59 Intake Total 100 / 100 120 / 120 Output Total 1100 / 1100 Balance -1100 / -1100 100 / 100 120 / 120 Intake: Oral 100 / 100 120 / 120 Output: Hemodialysis UF 1100 / 1100 Other: Meal Breakfast Percent of Meal Consumed 100% Feeding Ability Independent Weight 138 lb 4.8 oz Medical - DS: Data Labs on day of discharge: Preliminary micro results at discharge 04/18/17 10:31 Blood Culture - Preliminary Blood 04/18/17 10:37 Blood Culture - Preliminary Blood Medical - DS: A/P - Patient/Caregiver Discharge Instructions Activity: increase activity as tolerated Diet: Renal Additional Instructions: FU with dr Duke and cardiology for HD and atrial fibrillation, S/P TAVR - Problem Maintenance (1) Lung infiltrate Status: Acute (2) Renal failure Status: Chronic (3) SOB (shortness of breath) Status: Resolved (4) Atrial fibrillation Status: Acute Comment: Not a candidate for anticoagulation given increased risk of bleeding, unable to tolerate rate controlling medications. Qualifiers: Atrial fibrillation type: paroxysmal Qualified Code(s): I48.0 - Paroxysmal atrial fibrillation (5) ESRD (end stage renal disease) on dialysis Status: Chronic - Follow up Plan Follow up with: Emerald Duke MD [Physician] - (Continue with your current dialysis schedule with Dr. Duke.) Peyton Roy DO [Primary Care Provider] - 04/24/17 9:00 am Disposition: Home, Self-Care Prognosis: Good Rehab Potential: Good Overall status at discharge: patient is progressing back to baseline Medical - DS: Qual - VTE Deep Vein Thrombosis/Pulmonary Embolism Present on Admission: No
[2017-04-21] MEDS ORDERED: FERROUS SULFATE 325 MG TABLET PO SCH (12:00)
== END 2017-04-21 14:20 | disposition home or self-care (01) | DRG 193 ==
LOC: ED 09:49 → ICU 14:05
PROVIDERS: ADMIT Specialist; ATTEND Specialist

== ENCOUNTER 2019-11-12 13:52 | Inpatient (IN) ==
[2019-11-12] MEDS ORDERED: BISACODYL 10 MG SUPP.RECT PR PRN (14:21)
[2019-11-12] MEDS ORDERED: METOPROLOL TARTRATE 5 MG/5 ML VIAL IV PRN (14:21)
[2019-11-12] MEDS ORDERED: ONDANSETRON 4 MG ODT TABLET SL PRN (14:21)
[2019-11-12] MEDS ORDERED: POTASSIUM CHLORIDE 20 MEQ PACKET PO PRN (14:21)
[2019-11-12] MEDS ORDERED: MELATONIN 3 MG TABLET PO PRN (14:21)
[2019-11-12] MEDS ORDERED: ONDANSETRON 4 MG/2 ML VIAL IV PRN (14:21)
[2019-11-12] MEDS ORDERED: ACETAMINOPHEN 650 MG/65 ML BOTTLE IV PRN (14:21)
[2019-11-12] MEDS ORDERED: MAGNESIUM SULFATE 2 GM/50 ML BAG IV PRN (14:21)
[2019-11-12] MEDS ORDERED: ACETAMINOPHEN 325 MG TABLET PO PRN (14:21)
[2019-11-12] MEDS ORDERED: POLYETHYLENE GLYCOL 3350 17 GM PACKET PO PRN (14:21)
--- NOTE | 2019-11-12 14:28 | Internal Med History&Physical ---
HPI History of Present Illness Patient information: Note initiated : 11/12/19 at 2:28 pm Service Date, if different from initiated Date: [] Patient: Julianna Cameron a 84 y/o F admitted on 11/12/19 for Weakness. Chief Complaint: [] History of present illness: Ms. Cameron is a 84 year old F with a history of ESRD on hemodialysis, DM type II was referred from nephrology office for direct admission for increasing weakness and inability to function. Symptoms have evolved over the last couple of weeks. She was evaluated a week ago in the ER and was diagnosed with pneumonia and was started on antibiotics as outpatient. During today's hemodia lysis her blood pressure dropped around 60s. Extremely dizzy and nauseated and lightheaded. Despite her regular dose of midodrine her systolics remain around 70s. She was evaluated at the nephrology clinic. Nathalie had extensive discussion with patient and family about goals of care. It was decided the patient would be hospitalized for a brief trial of medical intervention that may include management of hypertension/CHF/pneumonia failing which family would consider hospice. On arrival patient is alert and respond to commands, she however continues to feel lightheaded and queasy. Endorses symptoms as above. She denies fever, chills, productive cough but endorses to weakness/malaise loss of appetite. She denies diarrhea, headache. Review of systems 10 point review system was performed and is negative except for ones discussed above [facility] Medical History (Updated 11/12/19 @ 16:40 by Michael Zelaya MD) Abnormality of plasma protein (Resolved) Acidosis (Resolved) Advanced care planning/counseling discussion (Resolved) POST form discussed with pt and signed in office 01/16/19 Anemia (Resolved) on hemodialysis Anemia in CKD (chronic kidney disease) (Chronic) OSKAR therapy on hemodialysis Atrial fibrillation (Acute) Not a candidate for anticoagulation given increased risk of bleeding, unable to tolerate rate controlling medications. Basal cell carcinoma (BCC) (Acute) on face, 2013 and again 2015, removed by Dr. Bianchi, is followed by Dr. Amilcar BARNETT (community acquired pneumonia) (Acute) CHF (congestive heart failure) (Chronic) Chronic kidney disease, stage IV (severe) (Resolved) most recent s.creatinine is 2.8, which equals to egfr of 15ml/min per MDRD equation renal function 2.6-3.1-3.1-2.8-2.6-2.8, got a little worse after PNA CKD stage IV in the setting of DM and HTN BUN IS AT 33 renal function shoul dimprove to baseline improve water intake will follow in 8 weeks have been educated about dialysis in the past, wants to do PD if indicated and possible Renal function is a little better No e/o volume depletion labs discussed with the pt, advised to stay well hydrated, will recheck labs and follow in 8 weeks call if any worsening of symptoms Chronic kidney disease, stage V (Resolved) most recent s.creatinine is 3.1, which equals to egfr of 14 ml/min per MDRD equation renal function 2.6-3.1-3.1, stable for now CKD stage V in the setting of DM and HTN BUN is at 57, on diuretics and prednisone (which she is using for gout) Renal function is worse uncontrolled HTN No e/o volume depletion labs discussed with the pt, advised to stay well hydrated, mild elevation in serum sodium and bicarbonate likely from free wtare depletion will recheck labs in 3-4 weeks and follow Closed left hip fracture (Resolved) Corticosteroid use (Resolved) History of corticosteroid use Diabetes mellitus (Resolved) diet controlled, not on meds at present Diabetes mellitus, type II (Resolved) DM (diabetes mellitus), type 2 with renal complications (Resolved) Dysphagia (Chronic) Dysphagia: The patient had a swallow eval done and is now on nectar thick fluids ESRD on HD Monday, , Monday Chronic back pain: On [place] 7.5mg one tab q8hrs prn. Pain controlled, was on related to increased pain. Now back on 7.5mg Dyspnea (Resolved) 04/27/14- Dr. Marie Edema (Chronic) Encounter for Health Maintenance Examination in Adult (Chronic) 05/29/17 Epistaxis (Resolved) 06/16/2014- Dr. Peck Esophageal reflux disease (Chronic) On HD ESRD (end stage renal disease) on dialysis (Resolved) ESRD (end stage renal disease) on dialysis (Chronic) Has been on oral replacement therapy for about 5 years She has not seen on the left expectancy on dialysis for this age Gout (Chronic) On high-dose Uloric Heart failure with acute decompensation, type unknown (Resolved) Heart murmur, systolic (Chronic) 12/03/13 chr as per patient 4/6 likely aortic sclerosis vs stenosis pt asymptomatic. 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 subsequent workup neg, elevated kapp9a and lambda chains but ratio is normal, plan to monitor. Influenza A (Resolved) Low back pain (Chronic) Medicare annual wellness visit, initial (Acute) Moderate aortic valve stenosis (Resolved) Last echo 2013 showed mild MR and moderate MR, Check this year, pt is asymtomatic from her standpoint at this time. Moderate to severe aortic stenosis (Resolved) Neurogenic claudication (Chronic) 04/08/2015-[facility] Obesity (Resolved) Osteoporosis (Chronic) Peripheral vascular disease (Resolved) Pleural effusion (Resolved) 04/27/14-Dr. English Pleural effusion on right (Chronic) Pleurisy (Resolved) Pneumonia (Resolved) 04/27/14-Dr Marie Pneumonia (Resolved) Post herpetic neuralgia (Resolved) Pulmonary HTN (Chronic) Recurrent aspiration events (Chronic) Penetration/Aspiration Scale 8. [place] thick liquids. -no longer on nectar thick liquids 05/01/19 -has seen a swallow specialist with swallow training Renal osteodystrophy (Chronic) Scalp laceration (Resolved) Secondary hyperparathyroidism (Chronic) PTH is at 120 calcium at goal and phos at goal on calcitriol dosing to every other day recheck levels; monitor phos in diet Secondary hyperparathyroidism of renal origin (Chronic) PTH at goal calcium and phos at goal vitamin d adequate hold calcitriol, will follow and restart if needed Sepsis (Resolved) Supratherapeutic INR (Resolved) Upper respiratory infection (Resolved) Urinary incontinence, urge (Resolved) Urinary tract infection (Resolved) Venous insufficiency (Resolved) Viral pharyngitis (Resolved) Vitamin D deficiency (Chronic) Surgical History Cholecystectomy planned (Resolved) 2001 Eardrum rupture (Resolved) 1964 Femur fracture, right (Resolved) 2010 right side, mable placement History of appendectomy (Resolved) 1948 History of cataract surgery (Resolved) 1999 History of knee surgery (Resolved) 1984, 1999, right and left knee scoped History of open reduction and internal fixation (ORIF) procedure (Resolved) left hip 06/2016 History of surgery (Resolved 07/11/16) Treatment of left femoral neck fracture with a cemented hip hemiarthroplasty S/P appendectomy (Acute) 1948 S/P cholecystectomy (Acute) 2000 S/P dialysis catheter insertion (Acute) catheter 2016 and fistula 2017 per patient S/P left knee surgery (Acute) 2004 S/P TAVR (transcatheter aortic valve replacement) (Acute) 11/11/15 Dr. Carballo, [facility] S/P tonsillectomy (Acute) 193 Family History Father Alcohol abuse Pneumonia Family/Other Liver cancer Social History marital status: other: Has 6 children smoking status: Former smoker pack-years: 4 quit status: quit date established alcohol intake frequency: does not drink substance use type: does not use MEDS/ALLERGIES Home Medications and Allergies Home Medications Medication Instructions Recorded Confirmed Type aspirin 81 mg tablet,delayed 81 mg PO QDAY 11/19/15 11/12/19 History release latanoprost 1 gtt OD HS bottle 04/21/17 11/12/19 Rx timolol maleate 0.25 % eye drops 1 drp OPHTHALMIC BID 30 Days #5 ml 05/29/17 11/12/19 History polyethylene glycol 3350 17 17 g PO ONCE PRN #119 g 10/24/17 11/12/19 Rx gram/dose oral powder dorzolamide 2 % eye drops 1 drp OPHTHALMIC BID ml 08/23/18 11/12/19 History B complex with C 20-folic acid 1 1 cap PO QDAY #30 cap 06/15/19 11/12/19 Rx mg capsule levothyroxine 100 mcg tablet 100 mcg PO QDAY #90 tab 07/15/19 11/12/19 Rx atorvastatin 40 mg tablet 40 mg PO QDAY #90 tab 08/07/19 11/12/19 Rx cyanocobalamin (vitamin B-12) 1,000 mcg PO QDAY tab 10/29/19 11/12/19 History 1,000 mcg tablet ferrous gluconate 240 mg (27 mg 65 mg PO TID 10/29/19 11/12/19 History iron) tablet sevelamer carbonate 800 mg tablet 800 mg PO .TID cc #300 tab 10/29/19 11/12/19 Rx amoxicillin 875 mg-potassium 1 tab PO BID #14 tab 11/11/19 11/12/19 Rx clavulanate 125 mg tablet febuxostat 80 mg tablet 80 mg PO QDAY #30 tab 11/11/19 11/12/19 Rx hydrocodone 7.5 mg-acetaminophen 1 tab PO Q8H PRN #180 tab 11/11/19 11/12/19 Rx 325 mg tablet pantoprazole 20 mg tablet,delayed 20 mg PO BID #180 tab 11/11/19 11/12/19 Rx release midodrine 5 mg PO TID 11/12/19 11/12/19 History midodrine 5 mg PO TIDP PRN 11/12/19 11/12/19 History Allergies Allergy/AdvReac Type Severity Reaction Status Date / Time pregabalin [From Lyrica] Allergy Severe crazy Verified 11/11/19 09:01 allopurinol Allergy Mild Unknown Verified 11/11/19 09:01 diltiazem AdvReac Intermediate Hypertensio Verified 11/11/19 09:01 n brimonidine AdvReac Mild Itching Verified 11/11/19 09:01 muscle relaxers Allergy Severe crazy Uncoded 11/11/19 09:01 EXAM Constitutional Vitals: Anxious Head normocephalic Oral cavity moist No ear nose discharge Eye movement symmetrical Neck supple no lymphadenopathy, minimal JVD S1-S2 occasionally irregular Diminished breath sounds bases, nonlabored breathin Nondistended nontender abdomen Fistula left upper extremity, lower extremity no cyanosis clubbing or joint swelling Skin no suspicious lesion however extensive ecchymosis Psych anxious but alert cooperative Neuro normal higher function A/P Narrative A/P Narrative: * Left basilar infiltrate possible residual pneumonia. Pancultures/sputum cultures/antibiotic initiation. * History of ESRD on dialysis * Hypotension currently on midodrine. Systolics around 80s. Managed by nephrology * Deconditioning weakness and failure to thrive-initiate PT OT/nutrition support * History of glaucoma continue dorzolamide/latanoprost/timolol * Chronic pain on hydrocodone * Hypothyroidism thyroxine * History of peptic ulcer disease PPI * Hyperlipidemia on statin * DNR Plan * Observation admit * Antibiotic coverage * Echocardiogram/EKG/pancultures * PT OT nutrition support * Monitor blood pressures Time Spent With Patient Time: Total time spent is greater than 50% in coordination of care (as documented) at patient's floor/unit and/or counseling patient:
[2019-11-12 15:38] LABS: Hematocrit 38.7 % (34.1-44.9); Mean Cell Volume 102.9 fL (80.0-100.0); Mean Platelet Volume 10.6 fL (7.4-10.4); Platelet Count 153 K/mcL (140-440); RBC 3.76 M/mcL (3.59-5.38); Red Cell Distribution Width 15.6 % (11.5-14.5)
[2019-11-12] MEDS ORDERED: FUROSEMIDE 40 MG/4 ML VIAL IV SCH (16:00)
[2019-11-12 16:03] LABS: ALT/SGPT 15 U/l (0-40); AST/SGOT 25 U/l (0-37); Albumin 3.7 gm/dL (3.2-5.2); Albumin/Globulin Ratio 1.1 (1.0-2.3); Alkaline Phosphatase 135 U/L (39-117); Bilirubin,Direct 0.2 mg/dL (0.0-0.3); Bilirubin,Total 0.5 mg/dL (0.0-1.0); Blood Urea Nitrogen 23 mg/dl (8-23); Calcium 8.3 mg/dl (8.6-10.4); Carbon Dioxide 26 mmol/L (22-30); Globulin 3.4 gm/dL (2.2-3.7); Glomerular Filtration Rate 15; Glucose 104 mg/dL (70-105); Lactate Dehydrogenase 188 U/L (94-250); Triglycerides 122 mg/dl (<150); Uric Acid 0.2 mg/dL (2.5-8.0)
[2019-11-12 16:04] LABS: Chloride 95 mmol/L (96-108)
--- NOTE | 2019-11-12 16:11 | Nephrology Progress Note ---
SUBJECTIVE Subjective Patient information: Note initiated : 11/12/19 at 4:10 pm Service Date, if different from initiated Date: [t] Patient: Julianna Cameron 84 y/o F admitted on 11/12/19 for Weakness and failure to thrive Chief Complaint: ["I can't go home"] HPI: Thyroid Dysfunction Hyperthyroid symptoms: Reports muscle weakness and dyspnea on exertion Hypothyroid symptoms: Reports fatigue and edema Thyroid Dysfunction Results: TSH 3.09 uIU/ml (0.27-5.01) 06/12/18 Free T4 1.47 ng/dl (0.7-1.7) 02/21/17 Aortic stenosis, severe Treatment: TAVR Additional Comments Ms Cameron is a pleasant 84 yo white female with PMHx of CKD stage IV from DM type 2 and obesity who RTC for follow up She has hx of renal osteodystrophy, metabolic acidosis and anemia associated with her CKD She has hx of mild proteinuria as well Patient has had acute worsening of renal function in the setting of severe anemia from profuse epistaxis and congestive heart failure She has anemia and is on Aranesp therapy. Last year she was found to have an upper GI blood loss anemia which required 6 weeks of Carafate therapy with stable hematocrit thereafter In November 2015 she underwent a Jeramie procedure for critical aortic stenosis (nonrheumatic) with good result LVEF is normal at 65% There is a mild elevation in her RVSP and mildly decreased RVEF She declines anticoagulation due to fall risk and increased bleeding risk with ESRD/dialysis Patient is issue is protein calorie malnutrition and rarely has an albumin above 3.5 -this is due to poor p.o. intake and not low-grade infection and increased catabolic rate. OS with drainage problems - Myringotomy by Dr Corbin (ENT) with tube in place Glaucoma limits Rx Blind OD and pressure 22 OS Macular degeneration ~ Has been on HD since 2014 Presumed cause of ESRD is DM/HTN Not a transplant candidate Dialysis prescription; Dry weight 52 kg Treatment time 3.5 hours Bath's of 3K/2.5 calcium/33 bicarbonate Blood flow is 350 Dialysis flow 800 Dialyzer is a Revaclear 300 16-gauge needles Dialysis medication: Aranesp 50 mcg weekly Venofer per protocol Home medications: Acetaminophen/hydrocodone (325/7.5 mg every 6 hours Vitamin C supplement Aspirin 81 mg daily Biotene 2500 mg capsule daily Dose Alomide/atenolol ophthalmic eyedrops Ferrous gluconate 324 mg 3 times daily H ydroxyzine 10 mg every 6 hours as needed itching Imodium AD as needed Levothyroxine 100 mcg daily Midodrine 5 mg 3 times daily and 5 mg additionally 3 times daily as needed Lannaprost ophthalmic Vitamin B12 thousand milligrams orally daily A slowly progressive downhill course the patient has experienced the rapid decline over the last 2 weeks and she presented to the emergency room where she was diagnosed with pneumonia and put on doxycycline. When I saw her to on dialysis rounds, she was nauseated and looked far worse than her usual state of poor health. The doxycycline was stopped and she completed a seven-day course of antibiotics in total using Augmentin for the last 3 days. 3 days ago she was seen in the dialysis unit. On today's rounds she was asking if she had to go home and if there is nothing that can make her feel better she would rather stop dialysis. Her chest x ray a week ago showed cardiomegally, fluid overload and a patchy inf iltrate in the RLL. However, her procalcitonin level was normal and her proBNP was elevated to >19K today. Laboratory Tests 11/11/19 11/11/19 11/12/19 09:38 09:41 14:45 WBC 10.0 Hgb 12.0 Hct 38.7 MCV 102.9 H Plt Count 153 ESR Pending Sodium Potassium Chloride Carbon Dioxide Anion Gap BUN Creatinine Glucose Uric Acid Calcium Phosphorus Magnesium Alkaline Phosphatase Lactate Dehydrogenase C-Reactive Protein NT-Pro-B Natriuret Pep Albumin Prealbumin Procalcitonin 0.05 TSH 0.10 L 11/12/19 11/12/19 11/12/19 14:45 14:45 14:45 WBC Hgb Hct MCV Plt Count ESR Sodium 138 Potassium 3.7 Chloride 95 L Carbon Dioxide 26 Anion Gap 17.0 H BUN 23 Creatinine 2.8 H Glucose 104 Uric Acid 0.2 L Calcium 8.3 L Phosphorus 3.0 Magnesium 2.0 Alkaline Phosphatase 135 H Lactate Dehydrogenase 188 C-Reactive Protein 9.0 H NT-Pro-B Natriuret Pep 12907.0 H Albumin 3.7 Prealbumin Pending Procalcitonin 0.16 TSH CXR Today: COMPARISON: 11/04/2019 FINDINGS: TAVR aortic valve replacement remains in stable satisfactory position. Heart has decreased in size now only mildly enlarged. Mediastinum and pulmonary vessels are normal. Pulmonary vessels have returned to normal in caliber. Mild airspace disease in the right base is actually been seen on films dating back over one year and therefore likely represents scar IMPRESSION: Interval resolution CHF. Mild right basilar scarring After speaking with the nursing home social worker function, patient and her daughter complaint was put into action to see if there is anything reversible that would cause this patient's failure to thrive. If not hospice seems the best option and is agreeable to the patient. Looks like the patient would benefit from physical therapy and increased nutritional support and this will be arranged. We will obtain an echocardiogram to see if there is any perivascular leak of the TAVR and get a normal estimate of her LVEF. CT scan to look for mitotic process in the chest and it looks like there is been improvement in her congestive heart failure with increased fluid removal and her regular dry weight 47 kg. It may well be that this patient is following the natural history of a 84-year-old patients on dialysis and she may have reached a point where the treatment is worse than the disease. Interestingly she lives with her son who is also a dialysis patient at [facility] and cared for the Dr. Benites. Constitutional Vitals: Vital Signs Temp Pulse Resp BP Pulse Ox 36.6 C 90 22 80/55 88 L 11/12/19 14:30 11/12/19 14:30 11/12/19 14:30 11/12/19 14:30 11/12/19 14:30 Period Temp Pulse Resp BP Sys/W[place]rell Pulse Ox Last 24 Hr 36.6 C 90 22 80/55 88 Intake and Output 11/12/19 11/12/19 11/12/19 05:59 13:59 21:59 Weight 47.8 kg Patient Weight 11/13/19 05:59 Weight 47.8 kg Intake & Output: Intake & Output 11/12/19 11/12/19 11/12/19 05:59 13:59 21:59 Weight 47.8 kg Exam Const General cooperative, comfortable and frail appearing Nutritional Appearance average body habitus Orientation alert, awake and oriented x3 HENMT Head normal to inspection, normocephalic and atraumatic Ears hearing grossly normal bilaterally and EAC's normal Face and sinus normal facial exam Mouth oropharynx normal Teeth and gingiva fair dentition Eyes General appearance normal, both eyes and all related structures Alignment and Position alignment normal Conjunctivae conjunctivae normal Sclera sclerae normal Cornea corneas normal Direct ophthalmoscopic exam normal light reflex Neck Neck full ROM, supple and trachea midline Carotids normal carotid upstroke; No bruit Chest Chest normal palpation of entire chest wall Resp Effort & Inspection normal respiratory effort and able to speak in complete sentences Auscultation clear to auscultation bilaterally Cardio Jugular venous pressure no JVD Palpation normal PMI Rate regular rate Rhythm regular rhythm Heart Sounds S1 normal and S2 normal Bruits No carotid bruit or renal bruit Details Good AVF left upper arm GI Palpation soft Percussion normal to percussion Auscultation normal bowel sounds Rectal Exam deferred General deferred Musc Cervical Spine normal cervical lordosis Thoracic/Lumbar Spine kyphosis Pelvis No no pain with anterior-posterior compression, no pain with lateral compression, tenderness over symphysis pubis, buttock tenderness or sciatic notch tenderness Skin General no rashes or lesions noted and ecchymosis Neuro General alert, awake, oriented x3, oriented to, gait normal, no focal motor deficits and CN's II-XI intact bilaterally Gait gait normal Extrem General normal to inspection, full ROM, normal exam except as noted and no pedal edema Psych Appearance grossly normal Mood mood and affect normal Affect normal affect Speech and Movement slowed movement Attitude cooperative Thought Process normal Thought Content normal Insight insight good Judgment judgment good A/P Assessment and plan (1) ESRD (end stage renal disease) on dialysis: Status: Chronic Comment: Has been on oral replacement therapy for about 5 years She has not seen on the left expectancy on dialysis for this age (2) Secondary hyperparathyroidism: Status: Chronic Comment: PTH is at 120 calcium at goal and phos at goal on calcitriol dosing to every other day recheck levels; monitor phos in diet (3) Anemia in CKD (chronic kidney disease): Status: Chronic Comment: OSKAR therapy on hemodialysis (4) Failure to thrive in adult: Status: Chronic Comment: The absence of any reversible process explanation is placed her opinion that she would like to proceed with end-of-life care and cessation of life-sustaining dialysis due to her poor quality of life. Narrative A/P Narrative: * CTA chest to evaluate right lower lobe * Echocardiogram to quantitate LVEF and see if there is any perivalvular of the TAVR * Regular diet as this patient until the calories she can take * Stop Uloric as her uric acid is almost undetectable * For now continue dialysis treatment of secondary hyperparathyroidism, anemia of chronic disease * Is recurrence of his pain improvement in her chest x-ray I doubt she has pneumonia she probably had congestive heart failure and is probably been treated as best we can with dialysis... She cannot tolerate more fluid off. * Suspect in 24 to 48 hours the plan of care will be clear Time Spent With Patient Time: Total time spent is greater than 50% in coordination of care (as documented) at patient's floor/unit and/or counseling patient:
[2019-11-12 16:28] LABS: Anisocytosis 1+ (NONE SEEN); Eosinophils % (Manual) 8 % (0-7); Lymphocytes % 9 % (15-49); Macrocytosis 2+ (NONE SEEN); Monocytes % (Manual) 4 % (1-12); Platelet Estimate NORMAL (NORMAL); Polychromasia 1+ (NONE SEEN); RBC Morphology ABNORM (NORMAL); Segmented Neutrophils % 79 % (38-78)
[2019-11-12 16:37] LABS: Erythrocyte Sedimentation Rate 48 mm/hr (0-20)
[2019-11-12] MEDS: cefTRIAXone 2 GM in DEXTROSE 5% IN WATER 50 ML IV SCH (16:52)
[2019-11-12] MEDS ORDERED: HYDROCODONE/APAP 7.5/325MG TABLET PO PRN (17:19)
[2019-11-12] MEDS ORDERED: NON FORMULARY MEDICATION 1 DOSE MISCELL (Polyethylene Glycol 3350 [Miralax] 17 G) PO PRN (17:19)
[2019-11-12] MEDS ORDERED: MIDODRINE 5 MG TABLET PO PRN (17:19)
[2019-11-12 17:37] LABS: Prealbumin 10.8 mg/dl (20-40)
--- NOTE | 2019-11-12 17:51 | Cat Scan Report ---
CLINICAL INFORMATION: Right lower lobe infiltrate. COMPARISON: Chest CT 01/01/2018 TECHNIQUE: 0.625 mm axial slices were obtained from the lung apices through the bases without intravenous contrast. 2.5 mm Sagittal, coronal and axial reformatted images were processed and reviewed at bone, lung and soft tissue windows. 7 mm axial MIP images were also reconstructed to optimize pulmonary nodule detection.The exam was performed using radiation dose optimization techniques including, but not limited to, automated exposure control, adjustment of the mA and/or kV according to patient size and use of iterative reconstruction technique. FINDINGS: A large consolidated infiltrate dominates the entire right middle lobe - new from the prior exam. There is also moderate patchy infiltrate throughout the right lower lobe which is also new. Small right pleural effusion noted. Minimal scattered infiltrates seen in the medial and posterior basilar segment left lower lobe. Moderate underlying chronic bronchitis noted - no bullae to suggest emphysema. Mediastinal windows show borderline enlargement of the central pulmonary arteries. There are multiple enlarged lymph nodes throughout the mediastinum which are unchanged from the 2018 CT and therefore represent chronic benign reactive adenopathy. The heart is moderately enlarged. The calcific plaque in the coronary arteries. Aortic prosthesis is in stable position. Complication. Thoracic aorta is tortuous, but normal in diameter. Esophagus is unremarkable. Thyroid is diminutive, but otherwise normal Mild chronic compression fractures throughout the thoracic spine accentuates the normal kyphotic curve. There is also moderate degenerative disc disease throughout the thoracic spine. Images through the upper abdomen show marked bilateral renal atrophy. There is a 13 mm cyst mid left kidney. Heavy calcific plaque seen in the abdominal aorta and all aortic branches. Noncontrasted visualized liver spleen pancreas adrenal glands normal. IMPRESSION: 1. Large dense consolidated right middle lobe infiltrate. Moderate patchy infiltrate throughout the right lower lobe with minimal infiltrate medial left lower lobe. Suspect pneumonia or aspiration. Right pleural effusion is developed. 2. Mild chronic bronchitis 3. Moderate cardiomegaly with TAVR aortic valve replacement. Heavy calcific plaque in the coronary arteries. 4. Severe bilateral renal atrophy. 13 mm simple cyst mid left kidney - stable since 2018. Interpreted and Authenticated by: Isaías Baker 11/12/19
[2019-11-12] MEDS: SEVELAMER 800 MG TABLET PO SCH (18:35)
[2019-11-12] MEDS: OMEPRAZOLE 20 MG CAPSULE PO SCH ×2 (18:35→18:40)
[2019-11-12] MEDS: FERROUS GLUCONATE 324 MG TABLET PO SCH (19:50)
[2019-11-12] MEDS: HYDROCODONE/APAP 7.5/325MG TABLET PO PRN (19:52)
[2019-11-12] MEDS: HEPARIN 5,000 UNIT/ML VIAL SQ SCH (19:52)
[2019-11-12] MEDS: DOCUSATE SODIUM 100 MG CAPSULE PO SCH (19:52)
[2019-11-12] MEDS: DORZOLAMIDE 2% OPHTH DROPS 10ML BOTTLE OU SCH (19:53)
[2019-11-12] MEDS: TIMOLOL 0.25% OPHTH DROPS BOTTLE 5ML OU SCH (19:53)
[2019-11-12] MEDS: LATANOPROST OPHTH DROPS 2.5ML BOTTLE OD SCH (19:53)
[2019-11-12] MEDS: 0.9 % SODIUM CHLORIDE 10 ML SYRINGE IV SCH ×2 (19:53→20:49)
[2019-11-12] MEDS: SENNOSIDES/DOCUSATE SODIUM 1 TAB TABLET PO SCH (19:53)
[2019-11-12] MEDS: MIDODRINE 5 MG TABLET PO SCH (22:27)
[2019-11-13] MEDS: 0.9 % SODIUM CHLORIDE 10 ML SYRINGE IV SCH ×3 (04:19→22:26)
[2019-11-13 06:10] LABS: Hematocrit 35.5 % (34.1-44.9); Hemoglobin 11.2 g/dL (11.2-15.7); Mean Cell Volume 100.3 fL (80.0-100.0); Mean Corpuscular HGB Conc 31.5 g/dL (31.0-36.0); Mean Platelet Volume 10.5 fL (7.4-10.4); Platelet Count 150 K/mcL (140-440); RBC 3.54 M/mcL (3.59-5.38); Red Cell Distribution Width 15.5 % (11.5-14.5)
[2019-11-13] MEDS: HYDROCODONE/APAP 7.5/325MG TABLET PO PRN ×2 (06:18→21:22)
[2019-11-13 06:35] LABS: ALT/SGPT 13 U/l (0-40); AST/SGOT 21 U/l (0-37); Albumin 3.3 gm/dL (3.2-5.2); Albumin/Globulin Ratio 1.1 (1.0-2.3); Alkaline Phosphatase 116 U/L (39-117); Bilirubin,Direct < 0.2 mg/dL (0.0-0.3); Bilirubin,Total 0.3 mg/dL (0.0-1.0); Blood Urea Nitrogen 35 mg/dl (8-23); Calcium 7.9 mg/dl (8.6-10.4); Carbon Dioxide 24 mmol/L (22-30); Chloride 96 mmol/L (96-108); Globulin 3.1 gm/dL (2.2-3.7); Glomerular Filtration Rate 10; Glucose 88 mg/dL (70-105); Lactate Dehydrogenase 135 U/L (94-250); Phosphorous 4.6 mg/dL (2.7-4.5); Triglycerides 108 mg/dl (<150); Uric Acid 0.4 mg/dL (2.5-8.0)
[2019-11-13] MEDS: LEVOTHYROXINE 100 MCG TABLET PO SCH (07:01)
[2019-11-13] MEDS: OMEPRAZOLE 20 MG CAPSULE PO SCH (07:01)
[2019-11-13 07:41] LABS: Band Neutrophils % 3 % (0-10); Eosinophils % (Manual) 7 % (0-7); Lymphocytes % 15 % (15-49); Macrocytosis 1+ (NONE SEEN); Monocytes % (Manual) 6 % (1-12); Platelet Estimate NORMAL (NORMAL); RBC Morphology ABNORM (NORMAL); Reactive Lymphocytes 3 % (0-2); Segmented Neutrophils % 66 % (38-78)
[2019-11-13] MEDS: CYANOCOBALAMIN (VITAMIN B-12) 500 MCG TABLET PO SCH (08:21)
[2019-11-13] MEDS: SEVELAMER 800 MG TABLET PO SCH ×3 (08:21→17:16)
[2019-11-13] MEDS: VITAMIN B COMPLEX 1 CAPSULE PO SCH (08:21)
[2019-11-13] MEDS: MIDODRINE 5 MG TABLET PO SCH ×3 (08:21→21:23)
[2019-11-13] MEDS: ASPIRIN 81 MG TAB.CHEW PO SCH (08:21)
[2019-11-13] MEDS: ATORVASTATIN 40 MG TABLET PO SCH (08:21)
[2019-11-13] MEDS: DOCUSATE SODIUM 100 MG CAPSULE PO SCH ×2 (08:22→21:23)
[2019-11-13] MEDS: Febuxostat [Uloric] 80 MG PO SCH ×2 (08:23→22:25)
[2019-11-13] MEDS: TIMOLOL 0.25% OPHTH DROPS BOTTLE 5ML OU SCH ×3 (08:23→21:23)
[2019-11-13] MEDS: FERROUS GLUCONATE 324 MG TABLET PO SCH ×3 (08:23→22:26)
[2019-11-13] MEDS: HEPARIN 5,000 UNIT/ML VIAL SQ SCH ×2 (08:23→21:23)
[2019-11-13] MEDS: cefTRIAXone 2 GM in DEXTROSE 5% IN WATER 50 ML IV SCH (08:24)
[2019-11-13] MEDS: DORZOLAMIDE 2% OPHTH DROPS 10ML BOTTLE OU SCH ×3 (08:24→21:23)
[2019-11-13] MEDS ORDERED: LEVOFLOXACIN 500 MG/100 ML BAG IV SCH (09:00)
--- NOTE | 2019-11-13 09:47 | Nephrology Progress Note ---
SUBJECTIVE Subjective Patient information: Note initiated : 11/13/19 at 9:39 am Service Date, if different from initiated Date: [] Patient: Julianna Cameron 84 y/o F admitted on 11/12/19 for Weakness. Chief Complaint: [Weak and can't go home] Interval Hx: Patient was admitted yesterday to look for any reversible causes of weakness failure to thrive 84-year-old woman with previous TAVR diabetes that now, requires no therapy and she has lost considerable amount of weight or blood pressure requiring daily Midodrine therapy. She was recently emergency room with shortness of breath thought to have a right lower lobe pneumonia but in fact her procalcitonin was normal and her BNP was markedly elevated and chest x-ray was remarkable for cardiomegaly and vascular engorgement she was put on doxycycline which made her vomit. Then worsen the whole situation so she completed a 5 to 7-day course of antibiotics with Augmentin. With dialysis there was increased removal of fluid so that her dry weight is now down from 52 kg to about 48 kg. Yesterday she voiced her opinion that if this is all better she is good and feels she wants to stop dialysis. Plan is to look for reversible causes such as perivalvular leak of her TAVR (although I am not sure we can do much about that) and a CT of the chest to look for some inflammatory process we may be missing. Today when seen on rounds she was feeling a little better sitting up and eating her lunch. The echocardiogram interpretation is pending but the CT scan shows a sizable area consolidation in the right middle lobe consistent with hospital- acquired pneumonia as she is a dialysis patient which puts her at risk for hospital-acquired pneumonia. The alternative is aspiration given her recent nausea and vomiting. Laboratory Results - last 48 hr 11/12/19 11/12/19 11/12/19 14:45 14:45 14:45 WBC 10.0 RBC 3.76 Hgb 12.0 Hct 38.7 MCV 102.9 H MCH 31.9 MCHC 31.0 RDW 15.6 H Plt Count 153 MPV 10.6 H Total Counted 100 Seg Neutrophils % 79 H Band Neutrophils % Not Reportable Lymphocytes % 9 L Monocytes % (Manual) 4 Eosinophils % (Manual) 8 H Reactive Lymphocytes Platelet Estimate Normal RBC Morphology Abnorm A Polychromasia 1+ A Anisocytosis 1+ A Macrocytosis 2+ A ESR 48 H Sodium 138 Potassium 3.7 Chloride 95 L Carbon Dioxide 26 Anion Gap 17.0 H BUN 23 Creatinine 2.8 H GFR Calculation 15 Glucose 104 Uric Acid 0.2 L Calcium 8.3 L Phosphorus 3.0 Magnesium 2.0 Total Bilirubin 0.5 Direct Bilirubin 0.2 GGT 26 AST 25 ALT 15 Alkaline Phosphatase 135 H Lactate Dehydrogenase 188 C-Reactive Protein 9.0 H NT-Pro-B Natriuret Pep 84250.0 H Total Protein 7.1 Albumin 3.7 Globulin 3.4 Albumin/Globulin Ratio 1.1 Prealbumin 10.8 L Triglycerides 122 Procalcitonin 11/12/19 11/12/19 11/13/19 14:45 14:45 05:20 WBC 8.0 RBC 3.54 L Hgb 11.2 Hct 35.5 MCV 100.3 H MCH 31.6 MCHC 31.5 RDW 15.5 H Plt Count 150 MPV 10.5 H Total Counted 100 Seg Neutrophils % 66 Band Neutrophils % 3 Lymphocytes % 15 Monocytes % (Manual) 6 Eosinophils % (Manual) 7 Reactive Lymphocytes 3 H Platelet Estimate Normal RBC Morphology Abnorm A Polychromasia Anisocytosis Macrocytosis 1+ A ESR Sodium Potassium Chloride Carbon Dioxide Anion Gap BUN Creatinine GFR Calculation Glucose Uric Acid TNP Calcium Phosphorus Magnesium Total Bilirubin Direct Bilirubin GGT AST ALT Alkaline Phosphatase Lactate Dehydrogenase C-Reactive Protein NT-Pro-B Natriuret Pep Total Protein Albumin Globulin Albumin/Globulin Ratio Prealbumin Triglycerides Procalcitonin 0.16 11/13/19 05:20 WBC RBC Hgb Hct MCV MCH MCHC RDW Plt Count MPV Total Counted Seg Neutrophils % Band Neutrophils % Lymphocytes % Monocytes % (Manual) Eosinophils % (Manual) Reactive Lymphocytes Platelet Estimate RBC Morphology Polychromasia Anisocytosis Macrocytosis ESR Sodium 139 Potassium 4.0 Chloride 96 Carbon Dioxide 24 Anion Gap 19.0 H BUN 35 H Creatinine 4.0 H GFR Calculation 10 Glucose 88 Uric Acid 0.4 L Calcium 7.9 L Phosphorus 4.6 H Magnesium 2.0 Total Bilirubin 0.3 Direct Bilirubin < 0.2 GGT 24 AST 21 ALT 13 Alkaline Phosphatase 116 Lactate Dehydrogenase 135 C-Reactive Protein NT-Pro-B Natriuret Pep Total Protein 6.4 Albumin 3.3 Globulin 3.1 Albumin/Globulin Ratio 1.1 Prealbumin Triglycerides 108 Procalcitonin Microbiology 11/12/19 17:08 Nasopharynx Respiratory Panel (PCR) - Final 11/12/19 17:08 Nasopharynx Respiratory Virus Panel (PCR) - Final Chest CT 11/12/2019 No sputum yet, Influenza viral and SAR2 CoV PCR pending. Rocephin IV Day #2 Accepela and IS therapy Previous Echo Swallow Eval and Nuclear Gastric emptying study (2019) Constitutional Vitals: Vital Signs Temp Pulse Resp BP Pulse Ox 36.6 C 83 16 134/41 91 11/13/19 07:00 11/13/19 07:00 11/13/19 07:00 11/13/19 07:00 11/13/19 07:00 Period Temp Pulse Resp BP Sys/Worrell Pulse Ox Last 24 Hr 36.6 C-37.4 C 81-91 16-22 80-139/36-55 88-98 Intake and Output 11/12/19 11/13/19 11/13/19 21:59 05:59 13:59 Intake Total 50 240 Balance 50 240 Weight 47.8 kg Intake & Output: Intake & Output 11/12/19 11/13/19 11/13/19 21:59 05:59 13:59 Intake Total 50 240 Balance 50 240 Weight 47.8 kg Intake: IV 50 Rocephin 2 gm In Dextrose 5% in 50 Water 50 ml @ 100 mls/hr IV Q24H [facility] Rx#:[id number] Oral 240 General: Less toxic and less distressed HEENT: AC/NT PERRL, EOMI, anicteric Neck: No elevated JVD Chest: Rhonchi but no rales or wheezing right side mid lung Cor: S1S2 w/o S3 No pericardial rub ABD: BS (+) and benign Ext: 1-2(+) edema Neuro: Nonfocal A/P Assessment and plan (1) HCAP (healthcare-associated pneumonia): Status: Acute Comment: HCAP > CAP due to dialysis unit RML and RLL consolidation (2) Failure to thrive in adult: Status: Chronic Comment: The absence of any reversible process explanation is placed her opinion that she would like to proceed with end-of-life care and cessation of life-sustaining d ialysis due to her poor quality of life. (3) Aortic stenosis, severe: Status: Chronic Comment: Status post TAVR (4) Recurrent aspiration events: Status: Chronic Comment: Penetration/Aspiration Scale 8. Masthope thick liquids. -no longer on nectar thick liquids 05/01/19 -has seen a swallow specialist with swallow training (5) ESRD (end stage renal disease) on dialysis: Status: Chronic Comment: Has been on oral replacement therapy for about 5 years She has not seen on the left expectancy on dialysis for this age (6) Secondary hyperparathyroidism of renal origin: Status: Chronic Comment: PTH at goal calcium and phos at goal vitamin d adequate hold calcitriol, will follow and restart if needed (7) Anemia in ESRD (end-stage renal disease): Status: Chronic Comment: Aranesp q week if HgB <11.0 Narrative A/P Narrative: 1. Treat RML/RLL pneumonia as if it were HCAP ABx x 7d Currently no wheezing Chest physiotherapy, IS and acapella therapy 2. PT/OT 3. HD tomorrow 4. Aranesp, Phosphate binders and Vit D analogues Time Spent With Patient Time: Total time spent is greater than 50% in coordination of care (as documented) at patient's floor/unit and/or counseling patient:
[2019-11-13] MEDS ORDERED: ACETYLCYSTEINE 800 MG/4 ML VIAL NEB ONE (09:57)
--- NOTE | 2019-11-13 10:01 | Internal Med Progress Note ---
SUBJECTIVE Subjective Patient information: Note initiated : 11/13/19 at 9:57 am Service Date, if different from initiated Date: [] Patient: Julianna Cameron 84 y/o F admitted on 11/12/19 for Weakness. Chief Complaint: Ms. Cameron is a 84 year old F with a history of ESRD on hemodialysis, DM type II was referred from nephrology office for direct admission for increasing weakness and inability to function. Symptoms have evolved over the last couple of weeks. She was evaluated a week ago in the ER and was diagnosed with pneumonia and was started on antibiotics as outpatient. During today's hemodialysis her blood pressure dropped around 60s. Extremely dizzy and nauseated and lightheaded. Despite her regular dose of midodrine her systolics remain around 70s. She was evaluated at the nephrology clinic. Nathalie had extensive discussion with patient and family about goals of care. It was decided the patient would be hospitalized for a brief trial of medical intervention that may include management of hypertension/CHF/pneumonia failing which family would consider hospice. On arrival patient is alert and respond to commands, she however continues to feel lightheaded and queasy. Endorses symptoms as above. She denies fever, chills, productive cough but endorses to weakness/malaise loss of appetite. She denies diarrhea, headache. 11/12-CT chest suggestive of bilateral multifocal pneumonia. On Levaquin/Rocephin. Continue pulmonary toilet/aspiration precaution. Initiate ST eval. Ongoing hemodialysis per nephrology. COVID-19 test pending. Constitutional Vitals: Vital Signs Temp Pulse Resp BP Pulse Ox 97.9 F 83 16 134/41 91 11/13/19 07:00 11/13/19 07:00 11/13/19 07:00 11/13/19 07:00 11/13/19 07:00 Period Temp Pulse Resp BP Sys/Worrell Pulse Ox Last 24 Hr 97.9 F-99.3 F 81-91 16-22 80-139/36-55 88-98 Intake and Output 11/12/19 11/13/19 11/13/19 21:59 05:59 13:59 Intake Total 50 240 Balance 50 240 Weight 47.8 kg alert and respond to commands Frequent cough Nonlabored breathing Minimal anxiety Intake & Output: Intake & Output 11/12/19 11/13/1911/12/20 21:59 05:59 13:59 Intake Total 50 240 Balance 50 240 Weight 47.8 kg Intake: IV 50 Rocephin 2 gm In Dextrose 5% in 50 Water 50 ml @ 100 mls/hr IV Q24H [facility] Rx#:[id number] Oral 240 OBJ DATA Labs CBC & Chem 7: 11/13/19 05:20 11/13/19 05:20 Labs: Abnormal Lab Results 11/13/19 11/13/19 11/12/19 05:20 05:20 14:45 RBC 3.54 L MCV 100.3 H RDW 15.5 H MPV 10.5 H Seg Neutrophils % Lymphocytes % Eosinophils % (Manual) Reactive Lymphocytes 3 H RBC Morphology Abnorm A Polychromasia Anisocytosis Macrocytosis 1+ A ESR Chloride Anion Gap 19.0 H BUN 35 H Creatinine 4.0 H Uric Acid 0.4 L Calcium 7.9 L Phosphorus 4.6 H Alkaline Phosphatase C-Reactive Protein 9.0 H NT-Pro-B Natriuret Pep 50211.0 H Prealbumin 10.8 L 11/12/19 11/12/19 14:45 14:45 RBC MCV 102.9 H RDW 15.6 H MPV 10.6 H Seg Neutrophils % 79 H Lymphocytes % 9 L Eosinophils % (Manual) 8 H Reactive Lymphocytes RBC Morphology Abnorm A Polychromasia 1+ A Anisocytosis 1+ A Macrocytosis 2+ A ESR 48 H Chloride 95 L Anion Gap 17.0 H BUN Creatinine 2.8 H Uric Acid 0.2 L Calcium 8.3 L Phosphorus Alkaline Phosphatase 135 H C-Reactive Protein NT-Pro-B Natriuret Pep Prealbumin Meds: Medications Acetaminophen (Tylenol) 650 mg PO Q4-6HP PRN; Protocol PRN Reason: Per Pain Protocol/Fever > 101 Hydrocodone Bitart/Acetaminophen ([place] 7.5/325mg) 1 tab PO Q8HP PRN; Protocol PRN Reason: Per Pain Protocol Last Admin: 11/13/19 06:18 Dose: 1 tab Documented by: Aspirin (Aspirin) 81 mg PO QDAY [facility] Last Admin: 11/13/19 08:21 Dose: 81 mg Documented by: Atorvastatin Calcium (Lipitor) 40 mg PO QDAY [facility] Last Admin: 11/13/19 08:21 Dose: 40 mg Documented by: Bisacodyl (Dulcolax) 10 mg [place] Q2-3DAYS PRN PRN Reason: Constipation Cyanocobalamin (Vitamin B-12) 1,000 mcg PO QDAY [facility] Last Admin: 11/13/19 08:21 Dose: 1,000 mcg Documented by: Docusate Sodium (Colace) 100 mg PO BID [facility] Last Admin: 11/13/19 08:22 Dose: 100 mg Documented by: Dorzolamide HCl (Trusopt 2% Ophth Drops) 1 gtt OU BID [facility] Last Admin: 11/13/19 08:24 Dose: Not Given Documented by: Famotidine (Pepcid) 20 mg PO HS [facility] Ferrous Gluconate (Fergon) 65 mg PO TID [facility] Last Admin: 11/13/19 08:23 Dose: Not Given Documented by: Heparin Sodium (Porcine) (Heparin) 5,000 unit SQ Q12 [facility] Last Admin: 11/13/19 08:23 Dose: 5,000 unit Documented by: Acetaminophen (Ofirmev) 650 mg in 65 mls @ 130 mls/hr IV Q6HP PRN; Protocol PRN Reason: Per Pain Protocol/Fever > 101 Magnesium Sulfate (Magnesium Sulfate) 2 gm in 50 mls @ 50 mls/hr IV UD PRN PRN Reason: MG = or < 1.7 Ceftriaxone Sodium 2 gm/ (Dextrose) 50 mls @ 100 mls/hr IV Q24H [facility]; Protocol Last Admin: 11/13/19 08:24 Dose: 100 mls/hr Documented by: Latanoprost (Xalatan Ophth Drops) 1 gtt OD HS [facility] Last Admin: 11/12/19 19:53 Dose: Not Given Documented by: Levothyroxine Sodium (Synthroid) 100 mcg PO QAMAC [facility] Last Admin: 11/13/19 07:01 Dose: 100 mcg Documented by: Lidocaine (Lidoderm) 1 patch TOPICAL DAILY@1000 [facility] Melatonin (Melatonin 3mg Tablet) 3 mg PO HSP PRN PRN Reason: Insomnia Metoprolol Tartrate (Lopressor) 5 mg IV Q5M PRN PRN Reason: Heart Rate > 140 bpm Midodrine (Midodrine Hcl) 5 mg PO TIDP PRN PRN Reason: Hypotension Last Admin: 11/12/19 17:35 Dose: 5 mg Documented by: Midodrine (Midodrine Hcl) 5 mg PO TID [facility] Last Admin: 11/13/19 08:21 Dose: 5 mg Documented by: Ondansetron HCl (Zofran Odt) 4 mg SL Q4-6HP PRN; Protocol PRN Reason: Nausea And Vomiting Ondansetron HCl (Zofran) 4 mg IV Q4-6HP PRN; Protocol PRN Reason: Nausea And Vomiting Febuxostat [Uloric] (80 Mg) 1 dose PO QDAY [facility] Last Admin: 11/13/19 08:23 Dose: Not Given Documented by: Polyethylene Glycol (Miralax) 17 gm PO DAILYP PRN PRN Reason: Constipation Potassium Chloride (Klor-Con) 40 meq PO DAILYP PRN PRN Reason: K+ < 3.5 Senna/Docusate Sodium (Senna Plus Tablet) 1 tab PO HS [facility] Last Admin: 11/12/19 19:53 Dose: Not Given Documented by: Sevelamer Carbonate (Renvela) 800 mg PO TIDCC [facility] Last Admin: 11/13/19 08:21 Dose: 800 mg Documented by: Sodium Chloride (Saline Flush) 10 ml IV Q8 [facility] Last Admin: 11/13/19 04:19 Dose: 10 ml Documented by: Timolol Maleate (Timoptic 0.25% Ophth Drops) 1 gtt OU BID [facility] Last Admin: 11/13/19 08:23 Dose: Not Given Documented by: Vitamin B Complex (Vitamin B Complex) 1 cap PO QDAY [facility] Last Admin: 11/13/19 08:21 Dose: 1 cap Documented by: A/P Narrative A/P Narrative: * Bilateral multifocal infiltrate possible aspiration pneumonia. Pancultures/sputum cultures/antibiotic initiation. * History of ESRD on dialysis-managed by nephrology * Hypotension currently on midodrine. Systolics in the 130s * Deconditioning weakness and failure to thrive-continue PT OT/nutrition support * History of glaucoma continue dorzolamide/latanoprost/timolol * Chronic pain on hydrocodone * Hypothyroidism thyroxine * History of peptic ulcer disease-on PPI * Hyperlipidemia on statin * DNR Plan * Coverage * HD per nephrology * Await echocardiogram * PT OT nutrition support Time Spent With Patient Time: Total time spent is greater than 50% in coordination of care (as documented) at patient's floor/unit and/or counseling patient:
[2019-11-13] MEDS: LIDOCAINE PATCH TOPICAL SCH (10:47)
[2019-11-13] MEDS: FAMOTIDINE 20 MG TABLET PO SCH (21:22)
[2019-11-13] MEDS: LATANOPROST OPHTH DROPS 2.5ML BOTTLE OD SCH (21:23)
[2019-11-13] MEDS: SENNOSIDES/DOCUSATE SODIUM 1 TAB TABLET PO SCH (21:24)
[2019-11-14] MEDS: 0.9 % SODIUM CHLORIDE 10 ML SYRINGE IV SCH ×3 (04:43→20:56)
[2019-11-14 07:16] LABS: Hematocrit 32.6 % (34.1-44.9); Hemoglobin 10.6 g/dL (11.2-15.7); Mean Cell Volume 98.2 fL (80.0-100.0); Mean Corpuscular HGB Conc 32.5 g/dL (31.0-36.0); Mean Platelet Volume 10.6 fL (7.4-10.4); Platelet Count 116 K/mcL (140-440); RBC 3.32 M/mcL (3.59-5.38); Red Cell Distribution Width 15.2 % (11.5-14.5); WBC 9.7 K/mcL (4.50-11.00)
[2019-11-14 07:42] LABS: ALT/SGPT 10 U/l (0-40); AST/SGOT 17 U/l (0-37); Albumin 2.8 gm/dL (3.2-5.2); Albumin/Globulin Ratio 0.9 (1.0-2.3); Alkaline Phosphatase 107 U/L (39-117); Bilirubin,Direct < 0.2 mg/dL (0.0-0.3); Bilirubin,Total 0.4 mg/dL (0.0-1.0); Calcium 7.8 mg/dl (8.6-10.4); Carbon Dioxide 22 mmol/L (22-30); Globulin 3.1 gm/dL (2.2-3.7); Glucose 94 mg/dL (70-105); Lactate Dehydrogenase 147 U/L (94-250); Phosphorous 4.8 mg/dL (2.7-4.5); Triglycerides 106 mg/dl (<150)
[2019-11-14 07:44] LABS: Blood Urea Nitrogen 47 mg/dl (8-23); Chloride 94 mmol/L (96-108); Glomerular Filtration Rate 7
[2019-11-14] MEDS: cefTRIAXone 2 GM in DEXTROSE 5% IN WATER 50 ML IV SCH (08:14)
[2019-11-14] MEDS: LEVOTHYROXINE 100 MCG TABLET PO SCH (08:15)
[2019-11-14 08:26] LABS: Eosinophils % (Manual) 4 % (0-7); Lymphocytes % 10 % (15-49); Monocytes % (Manual) 5 % (1-12); Platelet Estimate DECREASED (NORMAL); RBC Morphology NORMAL (NORMAL); Segmented Neutrophils % 81 % (38-78)
[2019-11-14] MEDS: VITAMIN B COMPLEX 1 CAPSULE PO SCH (08:37)
[2019-11-14] MEDS: SEVELAMER 800 MG TABLET PO SCH ×3 (08:37→17:56)
[2019-11-14] MEDS: ASPIRIN 81 MG TAB.CHEW PO SCH (08:37)
[2019-11-14] MEDS: CYANOCOBALAMIN (VITAMIN B-12) 500 MCG TABLET PO SCH (08:38)
[2019-11-14] MEDS: ATORVASTATIN 40 MG TABLET PO SCH (08:38)
[2019-11-14] MEDS: MIDODRINE 5 MG TABLET PO SCH ×3 (08:38→20:56)
[2019-11-14] MEDS: HYDROCODONE/APAP 7.5/325MG TABLET PO PRN ×2 (08:38→17:01)
[2019-11-14] MEDS: FERROUS GLUCONATE 324 MG TABLET PO SCH ×4 (08:39→20:56)
[2019-11-14] MEDS: DOCUSATE SODIUM 100 MG CAPSULE PO SCH ×2 (08:39→20:54)
[2019-11-14] MEDS: Febuxostat [Uloric] 80 MG PO SCH (08:40)
[2019-11-14] MEDS: TIMOLOL 0.25% OPHTH DROPS BOTTLE 5ML OU SCH ×2 (08:41→20:57)
[2019-11-14] MEDS: DORZOLAMIDE 2% OPHTH DROPS 10ML BOTTLE OU SCH ×2 (08:42→20:57)
[2019-11-14] MEDS: LIDOCAINE PATCH TOPICAL SCH (08:45)
[2019-11-14] MEDS: HEPARIN 5,000 UNIT/ML VIAL SQ SCH ×3 (08:45→20:55)
--- NOTE | 2019-11-14 08:59 | Internal Med Progress Note ---
SUBJECTIVE Subjective Patient information: Note initiated : 11/14/19 at 8:55 am Service Date, if different from initiated Date: [] Patient: Julianna Cameron 84 y/o F admitted on 11/12/19 for Weakness. Chief Complaint: [] Ms. Cameron is a 84 year old F with a history of ESRD on hemodialysis, DM type II was referred from nephrology office for direct admission for increasing weakness and inability to function. Symptoms have evolved over the last couple of weeks. She was evaluated a week ago in the ER and was diagnosed with pneumonia and was started on antibiotics as outpatient. During today's hemodialysis her blood pressure dropped around 60s. Extremely dizzy and nauseated and lightheaded. Despite her regular dose of midodrine her systolics remain around 70s. She was evaluated at the nephrology clinic. Nathalie had extensive discussion with patient and family about goals of care. It was decided the patient would be hospitalized for a brief trial of medical intervention that may include management of hypertension/CHF/pneumonia failing which family would consider hospice. On arrival patient is alert and respond to commands, she however continues to feel lightheaded and queasy. Endorses symptoms as above. She denies fever, chills, productive cough but endorses to weakness/malaise loss of appetite. She denies diarrhea, headache. 11/12-CT chest suggestive of bilateral multifocal pneumonia. On Levaquin/Rocephin. Continue pulmonary toilet/aspiration precaution. Initiate ST eval. Ongoing hemodialysis per nephrology. COVID-19 test pending. 11/13-patient demonstrated dramatic improvement over the last 24 hours with resolution of cough/shortness of breath and hypoxia. Feels a lot better. Tolerating diet. Ambulating with physical therapy. White count 9.7 ongoing hemodialysis per nephrology. Will likely discharge in 24 hours on outpatient antibiotics. No additional concerns expressed by nursing staff. Constitutional Vitals: Vital Signs Temp Pulse Resp BP Pulse Ox 99.2 F H 94 H 18 117/40 100 11/14/19 08:00 11/14/19 08:00 11/14/19 08:00 11/14/19 08:00 11/14/19 04:00 Period Temp Pulse Resp BP Sys/Worrell Pulse Ox Last 24 Hr 96.9 F-99.2 F 75-94 16-18 117-132/31-49 90-100 Intake and Output 11/13/19 11/14/19 11/14/19 21:59 05:59 13:59 Intake Total 540 300 Output Total 0 Balance 540 300 alert oriented weight 47.627 kg Alert and oriented Nonlabored breathing No anxiety No lymphedema Intake & Output: Intake & Output 11/13/19 11/14/19 11/14/19 21:59 05:59 13:59 Intake Total 540 300 Output Total 0 Balance 540 300 Weight 47.627 kg Intake: Oral 540 300 Output: Void Amount 0 Other: Meal Dinner Percent of Meal Consumed 50% Feeding Ability Independent OBJ DATA Labs CBC & Chem 7: 11/14/19 06:23 11/14/19 06:23 Labs: Abnormal Lab Results 11/14/19 11/14/19 11/13/19 06:23 06:23 05:20 RBC 3.32 L Hgb 10.6 L Hct 32.6 L MCV RDW 15.2 H Plt Count 116 L MPV 10.6 H Seg Neutrophils % 81 H Lymphocytes % 10 L Eosinophils % (Manual) Reactive Lymphocytes RBC Morphology Polychromasia Anisocytosis Macrocytosis ESR Chloride 94 L Anion Gap 17.0 H 19.0 H BUN 47 H 35 H Creatinine 5.2 H* 4.0 H Uric Acid 1.0 L 0.4 L Calcium 7.8 L 7.9 L Phosphorus 4.8 H 4.6 H Alkaline Phosphatase C-Reactive Protein NT-Pro-B Natriuret Pep Albumin 2.8 L Albumin/Globulin Ratio 0.9 L Prealbumin 11/13/19 11/12/19 11/12/19 05:20 14:45 14:45 RBC 3.54 L Hgb Hct MCV 100.3 H RDW 15.5 H Plt Count MPV 10.5 H Seg Neutrophils % Lymphocytes % Eosinophils % (Manual) Reactive Lymphocytes 3 H RBC Morphology Abnorm A Polychromasia Anisocytosis Macrocytosis 1+ A ESR Chloride 95 L Anion Gap 17.0 H BUN Creatinine 2.8 H Uric Acid 0.2 L Calcium 8.3 L Phosphorus Alkaline Phosphatase 135 H C-Reactive Protein 9.0 H NT-Pro-B Natriuret Pep 85869.0 H Albumin Albumin/Globulin Ratio Prealbumin 10.8 L 11/12/19 14:45 RBC Hgb Hct MCV 102.9 H RDW 15.6 H Plt Count MPV 10.6 H Seg Neutrophils % 79 H Lymphocytes % 9 L Eosinophils % (Manual) 8 H Reactive Lymphocytes RBC Morphology Abnorm A Polychromasia 1+ A Anisocytosis 1+ A Macrocytosis 2+ A ESR 48 H Chloride Anion Gap BUN Creatinine Uric Acid Calcium Phosphorus Alkaline Phosphatase C-Reactive Protein NT-Pro-B Natriuret Pep Albumin Albumin/Globulin Ratio Prealbumin Meds: Medications Acetaminophen (Tylenol) 650 mg PO Q4-6HP PRN; Protocol PRN Reason: Per Pain Protocol/Fever > 101 Hydrocodone Bitart/Acetaminophen ([place] 7.5/325mg) 1 tab PO Q8HP PRN; Protocol PRN Reason: Per Pain Protocol Last Admin: 11/14/19 08:38 Dose: 1 tab Documented by: Aspirin (Aspirin) 81 mg PO QDAY [facility] Last Admin: 11/14/19 08:37 Dose: 81 mg Documented by: Atorvastatin Calcium (Lipitor) 40 mg PO QDAY [facility] Last Admin: 11/14/19 08:38 Dose: 40 mg Documented by: Bisacodyl (Dulcolax) 10 mg [place] Q2-3DAYS PRN PRN Reason: Constipation Cyanocobalamin (Vitamin B-12) 1,000 mcg PO QDAY [facility] Last Admin: 11/14/19 08:38 Dose: 1,000 mcg Documented by: Docusate Sodium (Colace) 100 mg PO BID [facility] Last Admin: 11/14/19 08:39 Dose: Not Given Documented by: Dorzolamide HCl (Trusopt 2% Ophth Drops) 1 gtt OU BID [facility] Last Admin: 11/14/19 08:42 Dose: 1 gtt Documented by: Famotidine (Pepcid) 20 mg PO HS [facility] Last Admin: 11/13/19 21:22 Dose: 20 mg Documented by: Ferrous Gluconate (Fergon) 324 mg PO TID [facility] Last Admin: 11/14/19 08:46 Dose: Not Given Documented by: Heparin Sodium (Porcine) (Heparin) 5,000 unit SQ Q12 [facility] Last Admin: 11/14/19 08:49 Dose: Not Given Documented by: Acetaminophen (Ofirmev) 650 mg in 65 mls @ 130 mls/hr IV Q6HP PRN; Protocol PRN Reason: Per Pain Protocol/Fever > 101 Magnesium Sulfate (Magnesium Sulfate) 2 gm in 50 mls @ 50 mls/hr IV UD PRN PRN Reason: MG = or < 1.7 Ceftriaxone Sodium 2 gm/ (Dextrose) 50 mls @ 100 mls/hr IV Q24H [facility]; Protocol Last Admin: 11/14/19 08:14 Dose: 100 mls/hr Documented by: Levofloxacin (Levaquin) 500 mg in 100 mls @ 100 mls/hr IV Q48H [facility] Last Infusion: 11/13/19 12:17 Dose: Infused Documented by: Latanoprost (Xalatan Ophth Drops) 1 gtt OD [facility] Last Admin: 11/13/19 21:23 Dose: 1 gtt Documented by: Levothyroxine Sodium (Synthroid) 100 mcg PO QAMAC [facility] Last Admin: 11/14/19 08:15 Dose: 100 mcg Documented by: Lidocaine (Lidoderm) 1 patch TOPICAL DAILY@1000 [facility] Last Admin: 11/14/19 08:45 Dose: 1 patch Documented by: Melatonin (Melatonin 3mg Tablet) 3 mg PO HSP PRN PRN Reason: Insomnia Metoprolol Tartrate (Lopressor) 5 mg IV Q5M PRN PRN Reason: Heart Rate > 140 bpm Midodrine (Midodrine Hcl) 5 mg PO TIDP PRN PRN Reason: Hypotension Last Admin: 11/12/19 17:35 Dose: 5 mg Documented by: Midodrine (Midodrine Hcl) 5 mg PO TID [facility] Last Admin: 11/14/19 08:38 Dose: 5 mg Documented by: Ondansetron HCl (Zofran Odt) 4 mg SL Q4-6HP PRN; Protocol PRN Reason: Nausea And Vomiting Ondansetron HCl (Zofran) 4 mg IV Q4-6HP PRN; Protocol PRN Reason: Nausea And Vomiting Febuxostat [Uloric] (80 Mg) 1 dose PO QDAY [facility] Last Admin: 11/14/19 08:40 Dose: 1 dose Documented by: Polyethylene Glycol (Miralax) 17 gm PO DAILYP PRN PRN Reason: Constipation Potassium Chloride (Klor-Con) 40 meq PO DAILYP PRN PRN Reason: K+ < 3.5 Senna/Docusate Sodium (Senna Plus Tablet) 1 tab PO [facility] Last Admin: 11/13/19 21:24 Dose: Not Given Documented by: Sevelamer Carbonate (Renvela) 800 mg PO TIDCC [facility] Last Admin: 11/14/19 08:37 Dose: 800 mg Documented by: Sodium Chloride (Saline Flush) 10 ml IV Q8 [facility] Last Admin: 11/14/19 04:43 Dose: 10 ml Documented by: Timolol Maleate (Timoptic 0.25% Ophth Drops) 1 gtt OU BID [facility] Last Admin: 11/14/19 08:41 Dose: 1 gtt Documented by: Vitamin B Complex (Vitamin B Complex) 1 cap PO QDAY [facility] Last Admin: 11/14/19 08:37 Dose: 1 cap Documented by: A/P Narrative A/P Narrative: * Bilateral multifocal pneumonia on CT. Likely community-acquired versus aspiration pneumonia. Clinical improvement noted on antibiotic coverage/aspiration precaution. Await pancultures. Continue pulmonary toilet * History of ESRD on dialysis-managed by nephrology * Hypotension currently on midodrine. Systolics improved now around 130s * Deconditioning weakness and failure to thrive-continue PT OT/nutrition support * History of glaucoma continue dorzolamide/latanoprost/timolol * Chronic pain on hydrocodone * Hypothyroidism thyroxine * History of peptic ulcer disease-on PPI * Hyperlipidemia on statin * DNR Plan * Continue antibiotics * Continue HD per nephrology * Await echocardiogram results. * PT OT nutrition support * Discharge likely in 24 hours Time Spent With Patient Time: Total time spent is greater than 50% in coordination of care (as documented) at patient's floor/unit and/or counseling patient:
--- NOTE | 2019-11-14 18:10 | Nephrology Progress Note ---
SUBJECTIVE Subjective Patient information: Note initiated : 11/14/19 at 6:05 pm Service Date, if different from initiated Date: [] Patient: Julianna Cameron 84 y/o F admitted on 11/12/19 for Weakness. Chief Complaint: [Failure to thrive] Patient seen and evaluated on evening rounds. Underwent uneventful dialysis today with net fluid removal of 1.9 L and no significant hemodynamic issues. Overall she is feeling better than 48 hours ago. Blood cultures are negative Sputum culture was basically spit Respiratory viral panel is negative SARSCOVID is pending Clinically improved Rocephin and Levaquin. Had failed outpatient doxycycline due to nausea and vomiting and no improvement with Augmentin. Anticipate discharge on oral Levaquin 500 mg every 48 hours or moxifloxacin 400 mg daily for hospital-acquired pneumonia in a dialysis patient. Plan on repeat chest x-ray in 1 month Constitutional Vitals: Vital Signs Temp Pulse Resp BP Pulse Ox 37.2 C 88 18 103/39 99 11/14/19 15:26 11/14/19 15:26 11/14/19 15:26 11/14/19 15:26 11/14/19 15:26 Period Temp Pulse Resp BP Sys/Worrell Pulse Ox Last 24 Hr 36.1 C-37.3 C 60-113 16-18 88-137/31-88 90-100 Intake and Output 11/14/19 11/14/19 11/14/19 05:59 13:59 21:59 Intake Total 300 50 600 Output Total 0 1900 Balance 300 -1850 600 Intake & Output: Intake & Output 11/14/19 11/14/19 11/14/19 05:59 13:59 21:59 Intake Total 300 50 600 Output Total 0 1900 Balance 300 -1850 600 Intake: IV 50 Rocephin 2 gm In Dextrose 5% in 50 Water 50 ml @ 100 mls/hr IV Q24H FANNY Rx#:[id number] Oral 300 600 Output: Void Amount 0 Hemodialysis UF 1900 General: Less toxic and less distressed HEENT: AC/NT PERRL, EOMI, anicteric Neck: No elevated JVD Chest: Rhonchi but no rales or wheezing right side mid lung Cor: S1S2 w/o S3 No pericardial rub ABD: BS (+) and benign Ext: 1-2(+) edema Neuro: Nonfocal A/P Narrative A/P Narrative: A/P Assessment and plan (1) HCAP (healthcare-associated pneumonia): (2) Failure to thrive in adult: (3) Aortic stenosis, severe: (4) Recurrent aspiration events: (5) ESRD (end stage renal disease) on dialysis: (6) Secondary hyperparathyroidism of renal origin: (7) Anemia in ESRD (end-stage renal disease): Narrative A/P Narrative: 1. Treat RML/RLL pneumonia as if it were HCAP ABx x 7d Currently no wheezing Chest physiotherapy, IS and acapella therapy 2. PT/OT 3. HD Monday 4. Aranesp, Phosphate binders and Vit D analogues 5. Discharge on PO ABx tommorow once Covid test returns negative Time Spent With Patient Time: Total time spent is greater than 50% in coordination of care (as documented) at patient's floor/unit and/or counseling patient:
[2019-11-14] MEDS: SENNOSIDES/DOCUSATE SODIUM 1 TAB TABLET PO SCH (20:55)
[2019-11-14] MEDS: FAMOTIDINE 20 MG TABLET PO SCH (20:56)
[2019-11-14] MEDS: LATANOPROST OPHTH DROPS 2.5ML BOTTLE OD SCH (20:57)
[2019-11-15] MEDS: 0.9 % SODIUM CHLORIDE 10 ML SYRINGE IV SCH (04:47)
[2019-11-15] MEDS: HYDROCODONE/APAP 7.5/325MG TABLET PO PRN (04:56)
[2019-11-15 07:05] LABS: Hematocrit 33.9 % (34.1-44.9); Mean Cell Volume 98.5 fL (80.0-100.0); Mean Corpuscular HGB Conc 32.4 g/dL (31.0-36.0); Platelet Count 122 K/mcL (140-440); RBC 3.44 M/mcL (3.59-5.38); Red Cell Distribution Width 15.5 % (11.5-14.5); WBC 11.5 K/mcL (4.50-11.00)
[2019-11-15] MEDS: LEVOTHYROXINE 100 MCG TABLET PO SCH (07:20)
[2019-11-15 07:38] LABS: ALT/SGPT 9 U/l (0-40); AST/SGOT 14 U/l (0-37); Albumin/Globulin Ratio 0.9 (1.0-2.3); Alkaline Phosphatase 109 U/L (39-117); Bilirubin,Direct < 0.2 mg/dL (0.0-0.3); Bilirubin,Total 0.4 mg/dL (0.0-1.0); Carbon Dioxide 25 mmol/L (22-30); Globulin 3.3 gm/dL (2.2-3.7); Glucose 212 mg/dL (70-105); Lactate Dehydrogenase 138 U/L (94-250); Triglycerides 59 mg/dl (<150)
[2019-11-15 07:39] LABS: Blood Urea Nitrogen 19 mg/dl (8-23); Chloride 93 mmol/L (96-108); Glomerular Filtration Rate 13; Phosphorous 3.1 mg/dL (2.7-4.5); Uric Acid 0.5 mg/dL (2.5-8.0)
[2019-11-15] MEDS: cefTRIAXone 2 GM in DEXTROSE 5% IN WATER 50 ML IV SCH (08:22)
[2019-11-15] MEDS: SEVELAMER 800 MG TABLET PO SCH ×2 (08:23→11:46)
[2019-11-15 08:54] LABS: Eosinophils % (Manual) 2 % (0-7); Lymphocytes % 6 % (15-49); Monocytes % (Manual) 7 % (1-12); Platelet Estimate NORMAL (NORMAL); RBC Morphology NORMAL (NORMAL); Segmented Neutrophils % 85 % (38-78)
[2019-11-15] MEDS ORDERED: LEVOFLOXACIN 500 MG TABLET PO ONE (09:00)
[2019-11-15] MEDS ORDERED: cefTRIAXone 2 GM VIAL IM ONE (09:00)
--- NOTE | 2019-11-15 09:59 | Discharge Summary ---
Discharge Provider Provider Patient information: Note initiated : 11/15/19 at 9:56 am Service Date, if different from initiated Date: [] Patient: Julianna Cameron a 84 y/o F admitted on 11/12/19 for Weakness. Discharge diagnosis * Bilateral multifocal pneumonia on CT. Likely community-acquired versus aspiration pneumonia. Clinical improvement noted on antibiotic coverage/maintaining aspiration precaution. Cultures negative so far. Discharging additional 4 days oral antibiotic. * History of ESRD on dialysis-managed by nephrology * Intermittent hypotension currently on midodrine per nephrology * Deconditioning weakness and failure to thrive-clinically improving. Continue home health physical therapy/nutrition support * History of glaucoma continue dorzolamide/latanoprost/timolol * Chronic pain on hydrocodone * Hypothyroidism thyroxine * History of peptic ulcer disease-on PPI * Hyperlipidemia on statin Brief hospital course Ms. Cameron is a 84 year old F with a history of ESRD on hemodialysis, DM type II was referred from nephrology office for direct admission for increasing weakness and inability to function. Symptoms have evolved over the last couple of weeks. She was evaluated a week ago in the ER and was diagnosed with p neumonia and was started on antibiotics as outpatient. During today's hemodialysis her blood pressure dropped around 60s. Extremely dizzy and nauseated and lightheaded. Despite her regular dose of midodrine her systolics remain around 70s. She was evaluated at the nephrology clinic. Nathalie had extensive discussion with patient and family about goals of care. It was decided the patient would be hospitalized for a brief trial of medical intervention that may include management of hypertension/CHF/pneumonia failing which family would consider hospice. On arrival patient is alert and respond to commands, she however continues to feel lightheaded and queasy. Endorses symptoms as above. She denies fever, chills, productive cough but endorses to weakness/malaise loss of appetite. She denies diarrhea, headache. 11/12-CT chest suggestive of bilateral multifocal pneumonia. On Levaquin/Rocephin. Continue pulmonary toilet/aspiration precaution. Initiate ST eval. Ongoing hemodialysis per nephrology. COVID-19 test pending. 11/13-patient demonstrated dramatic improvement over the last 24 hours with resolution of cough/shortness of breath and hypoxia. Feels a lot better. Tolerating diet. Ambulating with physical therapy. White count 9.7 ongoing hemodialysis per nephrology. Will likely discharge in 24 hours on outpatient antibiotics. No additional concerns expressed by nursing staff. 8/7-patient doing a lot better. No overnight events. No concerns per nursing staff. Status post hemodialysis. Continue additional 4 days oral antibiotics. Discharging with home health. COVID negative. Date of admission: 11/12/19 14:22 Discharge date: 11/15/19 Primary care physician: Peyton Ryo DO Consults: 11/12/19 14:25 Consult to Physician [CONS] Routine Comment: Consulting Provider: Michael Zelaya Reason For Exam: Physician to Consult Discharge Meds Discharge Medications Home Medications aspirin 81 mg tablet,delayed release 81 mg PO QDAY 11/19/15 [History Confirmed 11/12/19 Last Taken 11/11/19] latanoprost 1 gtt OD HS bottle 04/21/17 [Rx Confirmed 11/12/19 Last Taken Unknown] timolol maleate 0.25 % eye drops 1 drp OPHTHALMIC BID 30 Days #5 ml 05/29/17 [History Confirmed 11/12/19 Last Taken Unknown] polyethylene glycol 3350 17 gram/dose oral powder 17 g PO ONCE PRN #119 g [Rx Confirmed 11/12/19 Last Taken Unknown] dorzolamide 2 % eye drops 1 drp OPHTHALMIC BID ml 08/23/18 [History Confirmed 11/12/19 Last Taken 11/12/19] B complex with C 20-folic acid 1 mg capsule 1 cap PO QDAY #30 cap 06/15/19 [Rx Confirmed 11/12/19 Last Taken 11/11/19] levothyroxine 100 mcg tablet 100 mcg PO QDAY #90 tab 07/15/19 [Rx Confirmed 11/12/19 Last Taken 11/11/19] atorvastatin 40 mg tablet 40 mg PO QDAY #90 tab 08/07/19 [Rx Confirmed 11/12/19 Last Taken 11/11/19] cyanocobalamin (vitamin B-12) 1,000 mcg tablet 1,000 mcg PO QDAY tab 10/29/19 [History Confirmed 11/12/19 Last Taken 11/11/19] ferrous gluconate 240 mg (27 mg iron) tablet 65 mg PO TID 10/29/19 [History Confirmed 11/12/19 Last Taken Unknown] sevelamer carbonate 800 mg tablet 800 mg PO .TID cc #300 tab 10/29/19 [Rx Confirmed 11/12/19 Last Taken Unknown] febuxostat 80 mg tablet 80 mg PO QDAY #30 tab 11/11/19 [Rx Confirmed 11/12/19 Last Taken Unknown] hydrocodone 7.5 mg-acetaminophen 325 mg tablet 1 tab PO Q8H PRN #180 tab 11/11/19 [Rx Confirmed 11/12/19 Last Taken Unknown] pantoprazole 20 mg tablet,delayed release 20 mg PO BID #180 tab 11/11/19 [Rx Confirmed 11/12/19 Last Taken Unknown] midodrine 5 mg PO TID 11/12/19 [History Confirmed 11/12/19 Last Taken 11/12/19 12:00] midodrine 5 mg PO TIDP PRN 11/12/19 [History Confirmed 11/12/19 Last Taken Unknown] cefdinir 300 mg PO BID #8 cap 11/15/19 [Rx Last Taken Unknown] levofloxacin 500 mg PO Q48H #2 tab 11/15/19 [Rx Last Taken Unknown] COURSE Hospital Course Hospital course: . Discharge diagnosis: . Time Spent with Patient Time attestation: Total time spent providing and/or coordinating discharge services: EXAM Constitutional Vitals: Temp Pulse Resp BP Pulse Ox 98.2 F 98 H 18 137/72 97 11/15/19 03:38 11/15/19 03:38 11/15/19 03:38 11/15/19 03:38 11/15/19 03:38 Discharge Data Data Completed and Pending Labs on day of discharge: Labs from last 24 hours 11/15/19 11/15/19 11/13/19 05:45 05:45 08:15 WBC 11.5 H RBC 3.44 L Hgb 11.0 L Hct 33.9 L MCV 98.5 MCH 32.0 MCHC 32.4 RDW 15.5 H Plt Count 122 L MPV 11.0 H Total Counted 100 Seg Neutrophils % 85 H Band Neutrophils % Not Reportable Lymphocytes % 6 L Monocytes % (Manual) 7 Eosinophils % (Manual) 2 Platelet Estimate Normal RBC Morphology Normal Sodium 134 Potassium 3.7 Chloride 93 L Carbon Dioxide 25 Anion Gap 16.0 BUN 19 Creatinine 3.1 H GFR Calculation 13 Glucose 212 H Uric Acid 0.5 L Calcium 8.0 L Phosphorus 3.1 Magnesium 1.9 Total Bilirubin 0.4 Direct Bilirubin < 0.2 GGT 21 AST 14 ALT 9 Alkaline Phosphatase 109 Lactate Dehydrogenase 138 Total Protein 6.3 Albumin 3.0 L Globulin 3.3 Albumin/Globulin Ratio 0.9 L Triglycerides 59 SARS-CoV-2 (PCR) Not detected Preliminary micro results at discharge 11/12/19 16:41 Blood Culture - Preliminary Blood 11/12/19 16:46 Blood Culture - Preliminary Blood Discharge Plan Patient/Caregiver Discharge Instructions Activity: increase activity as tolerated Diet: Low Sodium (2gm) Activity Restrictions/Additional Instructions: Follow-up PCP in [5] days Follow-up with nephrology for continued hemodialysis I recommend primary care physician to check CBC BMP UA as a posthospital follow- up in 1 week. Antibiotics for additional 4 days-oral cefdinir/levofloxacin Continue aggressive bowel regimen to prevent constipation Maintain fall precautions High protein calorie supplements All meals on chair sitting upright at 90 degrees to prevent aspiration Return to ER if concerning symptoms noted including worsening shortness of breath, fever chills, neurological changes, diarrhea, bleeding Reviewed risk and side effect profile of medications including antibiotics. Side effect may include mild to severe reaction including allergic reaction rash, diarrhea, cdiff and in rare instances even which can be prevented by close follow-up with PCP and monitoring for side effects Continue renal diet and activity as advised Discussed importance of medication adherence Please review medication list with patient prior to discharge Please schedule follow-up with PCP/Providers prior to discharge and provide printouts Prescriptions: New cefdinir 300 MG capsule 300 mg PO BID Qty: 8 RF: 0 levofloxacin 500 mg tablet 500 mg PO Q48H Qty: 2 RF: 0 Continued polyethylene glycol 3350 [Miralax] 17 gram/dose powder 17 g PO ONCE PRN (Reason: constipation) Qty: 119 RF: 3 St[place]or Caps 1 mg capsule 1 cap PO QDAY Qty: 30 RF: 12 levothyroxine 100 mcg tablet 100 mcg PO QDAY Qty: 90 RF: 1 atorvastatin 40 mg tablet 40 mg PO QDAY Qty: 90 RF: 0 febuxostat [Uloric] 80 mg tablet 80 mg PO QDAY Qty: 30 RF: 3 pantoprazole 20 mg tablet,delayed release (DR/EC) 20 mg PO BID Qty: 180 RF: 0 hydrocodone-acetaminophen 7.5-325 mg tablet 1 tab PO Q8H PRN (Reason: pain) Qty: 180 RF: 0 timolol maleate 0.25 % drops 1 drp OPHTHALMIC BID 30 Days Qty: 5 RF: 0 dorzolamide 2 % drops 1 drp OPHTHALMIC BID RF: 0 aspirin [Adult Low Dose Aspirin] 81 mg tablet,delayed release (DR/EC) 81 mg PO QDAY RF: 0 cyanocobalamin (vitamin B-12) [Vitamin B-12] 1,000 mcg tablet 1,000 mcg PO QDAY RF: 0 ferrous gluconate [Fergon] 240 mg (27 mg iron) tablet 65 mg PO TID RF: 0 sevelamer carbonate [Renvela] 800 mg tablet 800 mg PO .TID cc Qty: 300 RF: 3 latanoprost 1 GTT bottle 1 gtt OD HS RF: 0 midodrine 5 mg Tablet 5 mg PO TIDP PRN (Reason: Hypotension) RF: 0 midodrine 5 mg tablet 5 mg PO TID RF: 0 Discontinued amoxicillin-pot clavulanate [Augmentin] 875-125 mg tablet 1 tab PO BID Qty: 14 RF: 0 Follow Up Plan Patient Disposition: Home Health Service Rehab Potential: Fair I certify that the patient requires SNF services: No Overall status at discharge: patient is progressing back to baseline Discharge Orders: Discharge Order (Routine); Ordered 11/15/19 Ordered By: Jourdan Marie
[2019-11-15] MEDS: CYANOCOBALAMIN (VITAMIN B-12) 500 MCG TABLET PO SCH (10:03)
[2019-11-15] MEDS: VITAMIN B COMPLEX 1 CAPSULE PO SCH (10:03)
[2019-11-15] MEDS: MIDODRINE 5 MG TABLET PO SCH (10:03)
[2019-11-15] MEDS: ASPIRIN 81 MG TAB.CHEW PO SCH (10:03)
[2019-11-15] MEDS: Febuxostat [Uloric] 80 MG PO SCH (10:03)
[2019-11-15] MEDS: FERROUS GLUCONATE 324 MG TABLET PO SCH (10:03)
[2019-11-15] MEDS: ATORVASTATIN 40 MG TABLET PO SCH (10:04)
[2019-11-15] MEDS: HEPARIN 5,000 UNIT/ML VIAL SQ SCH (10:04)
[2019-11-15] MEDS: DORZOLAMIDE 2% OPHTH DROPS 10ML BOTTLE OU SCH (10:05)
[2019-11-15] MEDS: LIDOCAINE PATCH TOPICAL SCH (10:05)
[2019-11-15] MEDS: TIMOLOL 0.25% OPHTH DROPS BOTTLE 5ML OU SCH (10:05)
[2019-11-15] MEDS: DOCUSATE SODIUM 100 MG CAPSULE PO SCH (10:06)
== END 2019-11-15 12:50 | disposition home health service (06) | DRG 194 ==
LOC: PREOBSVTOIN 13:58 → MEDSUR 14:22
PROVIDERS: ADMIT Internal Medicine; ATTEND Internal Medicine